=== PATIENT | female | born 1940 | race Caucasian/White ===

== ENCOUNTER 2021-01-14 09:05 | Outpatient (CLI) | payer MEDICARE, OTHER | END 2021-01-14 09:06 | disposition critical access hospital (66) | LOC: EMS 09:05 | DX: R55 Syncope and collapse (principal); S21.001A Unspecified open wound of right breast, initial encounter; X58.XXXA Exposure to other specified factors, initial encounter | CPT/HCPCS: A0425; A0427 ==

== ENCOUNTER 2021-01-14 09:24 | Emergency (ER) | payer MEDICARE, OTHER ==
--- NOTE | 2021-01-14 09:39 | ED Physician Documentation ---
PD HPI SKIN - Stated complaint Stated Complaint: R BREAST WOUND - History obtained from History obtained from: Patient - History of Present Illness Timing - onset: How many months ago (onset in May of small pimple like breast lesion that has continually grown and ulcerated for 8 months. It has bled at times mildly. Today it had dripping blood from one erosive indentation of the mass. This got her to call EMS and come for eval. Otherwise had not sought care/eval for this as yet) Timing - duration: Months (8) Timing - details: Gradual onset Location: Chest (right breast area.) Quality / character: Other (swelling and mass.) Associated symptoms: No: Fever, Dyspnea, Abd pain, N/V/D Review of Systems Constitutional: denies: Fever, Chills Nose: denies: Rhinorrhea / runny nose, Congestion Throat: denies: Sore throat Cardiac: denies: Palpitations, Pedal edema, Calf pain Respiratory: denies: Dyspnea, Cough, Wheezing GI: denies: Abdominal Pain, Nausea, Vomiting, Diarrhea Skin: reports: Lesions (just right breast and axilla.) Neurologic: denies: Focal weakness, Numbness, Altered mental status, Headache PD PAST MEDICAL HISTORY - Past Medical History Cardiovascular: None Respiratory: None Endocrine/Autoimmune: None GI: None : None Musculoskeletal: None Derm: None - Present Medications Home Medications: Ambulatory Orders Medication Instructions Recorded Confirmed Mupirocin Calcium [Mupirocin] 1 applic TP TID #15 gm 01/14/21 cephALEXin [Keflex] 500 mg PO TID #20 cap 01/14/21 - Allergies Allergies/Adverse Reactions: Allergies Allergy/AdvReac Type Severity Reaction Status Date / Time No Known Drug Allergies Allergy Verified 01/14/21 09:42 PD ED PE NORMAL - Vitals Vital signs reviewed: Yes - General General: Alert and oriented X 3, Well developed/nourished, Other (There is some redness with superficial exudate on the medial and inferior portion of the br east/chest wall mass concerning for infection.) - Neck Neck: Supple, no meningeal sign, No adenopathy - Cardiac Cardiac: RRR, No murmur - Respiratory Respiratory: Clear bilaterally - Abdomen Abdomen: Soft, Non tender - Derm Derm: Normal color, Warm and dry, Other (The right breast area shows no identifiable breast morphology. Its replaced by a lobular mass of indistinct tissue with open sores and some mild oozing bleeding in the inferior aspect. The mass is adherent to the chest wall and is not movable. It extends to the axilla with secondary masses/nodes.) - Extremities Extremities: Other (Normal pulses capillary refill and sensation in the right arm. No edema. There is adenopathy or masses in the axilla but no apparent compression on vessels.) - Neuro Neuro: No motor deficit, No sensory deficit Results - Vitals Vitals: Vital Signs - 24 hr 01/14/21 01/14/21 01/14/21 09:33 10:21 12:28 Temperature 36.9 C Heart Rate 92 85 102 H Respiratory 16 14 16 Rate Blood Pressure 180/76 H 160/76 H 161/77 H O2 Saturation 97 96 97 Oxygen O2 Source Room air - Labs Labs: Laboratory Tests 01/14/21 01/14/21 01/14/21 09:58 09:58 09:58 WBC 12.5 H RBC 4.12 L Hgb 11.9 L Hct 36.7 L MCV 89.1 MCH 28.9 MCHC 32.4 RDW 14.8 Plt Count 406 MPV 10.4 Neut # (Auto) 10.5 H Lymph # (Auto) 0.[address] [place] # (Auto) 0.8 Eos # (Auto) 0.1 Baso # (Auto) 0.1 Absolute Nucleated RBC 0.00 Nucleated RBC % 0.0 Sodium 138 Potassium 4.5 Chloride 103 Carbon Dioxide 28 Anion Gap 7.0 BUN 28 H Creatinine 0.6 Estimated GFR (MDRD) 96 Glucose 148 H Calcium 9.5 Total Bilirubin 0.9 AST 30 ALT 18 Alkaline Phosphatase 35 L Total Creatine Kinase 77 Total Protein 7.5 Albumin 3.8 Globulin 3.7 Albumin/Globulin Ratio 1.0 Lipase 32 CA 125 Antigen 98.2 H - Rads (name of study) chest/abd/pelvis CT Radiology: Prelim report reviewed (Large lobulated tumor on the right chest wall into the axilla concerning for malignancy. It extends and erodes into the chest wall with some involvement in loss of rib architecture. No effusion nor pneumothorax. No lung or liver or bone metastases seen.), See rad report PD MEDICAL DECISION MAKING - ED course Complexity details: reviewed results, considered differential, d/w patient, d/w organizational research consultant (Dr. Banerjee, who came to ER to see and consult on patient. ) Departure - Departure Disposition: 01 Home, Self Care Clinical Impression: Breast mass in female Condition: Stable Record reviewed to determine appropriate education?: Yes Follow-Up: Miranda Banerjee MD [Provider Admit Priv/Credential] - Prescriptions: cephALEXin [Keflex] 500 mg PO TID #20 cap Mupirocin Calcium [Mupirocin] 1 applic TP TID #15 gm Comments: Cleanse the open wounds with soap and water gently once or twice daily. You can apply mupirocin antibiotic ointment to the main red irritated areas. Cover it with dressing. There does appear possibly to be some local infection in the skin as well so would take cephalexin antibiotic as directed. Tylenol if needed for pains. Follow-up with Dr. Ruano in the office tomorrow as planned with her. Return to the ER if problems or significant bleeding again or such. Discharge Date/Time: 01/14/21 13:35
[2021-01-14] MEDS ORDERED: FERRIC SUBSULFATE 8 ML SOLUTION (FOR OR) TOP STA (09:51)
[2021-01-14] MEDS ORDERED: LIDOCAINE JELLY 2% 6 ML JEL.PF.APP TOP STA (09:51)
[2021-01-14 10:04] LABS: BASOPHILS # (AUTO) 0.1 10^3/uL (0.0-0.1); BASOPHILS % (AUTO) 0.6 %; EOSINOPHILS # (AUTO) 0.1 10^3/uL (0.0-0.7); EOSINOPHILS % (AUTO) 0.6 %; HCT - HEMATOCRIT 36.7 % (37.0-47.0); HGB - HEMOGLOBIN 11.9 g/dL (12.0-16.0); LYMPHOCYTES # (AUTO) 0.9 10^3/uL (1.5-3.5); LYMPHOCYTES % (AUTO) 7.5 %; MEAN CORPUSCULAR HEMOGLOBIN 28.9 pg (27.0-31.0); MEAN CORPUSCULAR HGB CONC 32.4 g/dL (32.0-36.0); MEAN CORPUSCULAR VOLUME 89.1 fL (81.0-99.0); MEAN PLATELET VOLUME 10.4 fL (7.9-10.8); MONOCYTES # (AUTO) 0.8 10^3/uL (0.0-1.0); MONOCYTES % (AUTO) 6.7 %; NEUTROPHILS # (AUTO) 10.5 10^3/uL (1.5-6.6); NEUTROPHILS % (AUTO) 84.1 %; PLT - PLATELET COUNT 406 10^3/uL (130-450); RED BLOOD COUNT 4.12 10^6/uL (4.20-5.40); RED CELL DISTRIBUTION WIDTH 14.8 % (12.0-15.0); WHITE BLOOD COUNT 12.5 x10^3/uL (4.8-10.8)
[2021-01-14 10:18] LABS: ALBUMIN 3.8 g/dL (3.2-5.5); BILIRUBIN,TOTAL 0.9 mg/dL (0.2-1.0); CALCIUM 9.5 mg/dL (8.5-10.3); CREATININE 0.6 mg/dL (0.4-1.0); POTASSIUM 4.5 mmol/L (3.5-5.0); TOTAL PROTEIN 7.5 g/dL (6.7-8.2)
[2021-01-14] MEDS ORDERED: IOPAMIDOL-300 50 ML VIAL ONE (10:41)
[2021-01-14] MEDS ORDERED: IOPAMIDOL-300 50 ML VIAL IVP ONE (11:05)
--- NOTE | 2021-01-14 11:46 | CT Report ---
PROCEDURE: Abdomen/Pelvis W INDICATIONS: right breast mass 8 months CONTRAST: IV CONTRAST: Isovue 300 ml: 100 PO CONTRAST: *NO PO CONTRAST TECHNIQUE: After the administration of intravenous contrast, 5 mm thick sections acquired from the diaphragms to the symphysis. 5 mm thick coronal and sagittal reformats were acquired. For radiation dose reducti on, the following was used: automated exposure control, adjustment of mA and/or kV according to everardo ent size. COMPARISON: None. FINDINGS: Image quality: Excellent. ABDOMEN: Lung bases: There is a partially visualized highly suspicious for lung gating right breast mass with probable invasion in the chest wall and local extension across midline. A potential additional malign ant lesion is in the left breast on series 3 image 1 measuring 1 cm. Please see separately dictated C T chest report for further details. Solid organs: There is no liver mass identified to indicate metastatic disease. The gallbladder is un remarkable. The spleen is normal in size and appearance. Moderately atrophic pancreas with no peripan creatic inflammatory changes, ductal dilatation, or obvious mass. No adrenal gland nodule or mass. Luis th kidneys are normal in appearance. Peritoneum and bowel: No abnormally dilated or thickened loop of bowel. No pericolonic or mesenteric inflammatory changes. Nodes and vessels: No threshold enlarged retroperitoneal lymph node or intra-abdominal lymph node. At herosclerotic abdominal aorta without aneurysm. Miscellaneous: No ventral hernias. PELVIS: Genitourinary: Bladder wall thickness is normal. Uterus and ovaries are within normal limits. Miscellaneous: No structural enlarged pelvic or inguinal lymph nodes. Bones: Suspicious lytic or blastic osseous lesion identified. IMPRESSION: Almost certainly malignant right breast mass with suspected chest wall invasion, extension across mid line, and locoregional lymphadenopathy, partially visualized. Suspected additional left breast mass. For more detailed description, please refer to a separately dictated CT of the chest. No findings of metastatic disease in the abdomen or pelvis. Reviewed by: Gordy Chau MD on 01/14/2021 11:45 AM PDT Approved by: Gordy Chau MD on 01/14/2021 11:45 AM PDT Station ID: [id number]
[2021-01-14] MEDS ORDERED: ceFAZolin 1 GM VIAL IVP STA (11:48)
--- NOTE | 2021-01-14 12:05 | CT Report ---
PROCEDURE: CHEST W INDICATIONS: right breast mass 8 months CONTRAST: IV CONTRAST: Isovue 300 ml: 100 PO CONTRAST: *NO PO CONTRAST TECHNIQUE: After the administration of intravenous contrast, images were acquired from the pulmonary apices to t he posterior costophrenic angles. Multiplanar MIP reformats were acquired. For radiation dose reduc tion, the following was used: automated exposure control, adjustment of mA and/or kV according to pa tient size. COMPARISON: None. FINDINGS: Image quality: Excellent. Lungs and pleura: No acute air space opacities. No pleural effusions or pneumothorax. Central and peripheral airways are patent and normal in caliber. Mediastinum: Heart size is normal. No pericardial effusion. There are enlarged mediastinal lymph n odes the largest in the precarinal region measuring 1.4 cm on series 2 image 25. Thoracic aorta and central pulmonary arteries are normal in size. The main pulmonary arteries demonstrate enhancement. There is heterogeneous enhancement of the proximal segmental branches of the pulmonary arteries parti cularly within the lower lobes. It is noted that this is protocoled for standard CT chest and not a p ulmonary angiogram. Esophagus is normal in caliber. No hiatal hernia. Bones and chest wall: There is a large confluent infiltrative mass within the right breast extending to the posterior aspect of the anterior chest wall. Destructive lytic anterior right third and fourt h rib changes are present posterior to the mass. In addition, there are are areas of focal and conflu ent mass lesions within the supraclavicular region as well as right axillary region. The largest dime nsions of the mass measure approximately 12.0 x 7.3 x 11.8 cm. Largest axillary mass measures approxi mately 3.0 x 4.7 x 6.0 seen on series 2 image 22. In addition, there is left supraclavicular and axil missy adenopathy, with the largest mass on the left measuring 2.3 x 2.7 x 4.2 cm. There are areas of s oft tissue mass identified within the left breast the largest medially on series 2 image 38 measuring 1.6 x 1.3 cm. Thyroid demonstrates low-attenuation focus within the right lobe measuring 2.1 cm.. Abdomen: Visualized upper abdominal solid organs appear normal. Upper abdominal bowel loops are nor mal in caliber. IMPRESSION: 1. Large right breast mass extending to the chest wall, supraclavicular region as well as right axill daniel region most consistent with malignancy. In addition, metastatic mass lesions are also identified in the left breast and left axillary as well as supraclavicular regions. Osseous destruction is prese nt within the right ribs secondary to mass lesion as above. 2. Heterogeneous enhancement of the proximal segmental branches of the pulmonary arteries within the lower lobes as above. While this could be secondary to heterogeneous enhancement, it appears slightly more pronounced. Given extensive appearance of malignancy, pulmonary embolism cannot be excluded on the basis of this exam. Repeat study with CT pulmonary angiogram protocol is recommended when feasibl e with clinical correlation. 3. Nonspecific low-attenuation mass within the right thyroid lobe possibly related to adenoma. No pr iors are available for comparison. Recommend interval follow-up thyroid ultrasound as indicated. Reviewed by: Елена Sorto MD on 01/14/2021 12:04 PM PDT Approved by: Елена Sorto MD on 01/14/2021 12:04 PM PDT Station ID: [id number]
[2021-01-14] MEDS ORDERED: LIDOCAINE 1%-EPI 1:100000 20 ML MDV SUBQ STA (12:27)
[2021-01-14 12:29] VITALS: BP 161/77
[2021-01-14] MEDS ORDERED: SILVER SULFADIAZINE CREAM 25 GM TUBE TOP ONE (12:54)
--- NOTE | 2021-01-14 13:10 | CONSULTATION NOTE ---
Referring Provider Name of Referring Provider:: Nitin Consult Date: 01/14/21 Chief Complaint - Chief Complaint Chief Complaint: Bleeding from right breast History of Present Illness - Admitted From Admitted From:: ED - History of Present Illness HPI Comment/Other: Is a pleasant 80-year-old lady who presented to the emergency room via EMS this morning. She reports that she was in the shower and noticed that she was bleeding from her right breast. She said it has bled a little bit before but never this bad and became very concerning for her. She said she was frightened when she could not make it stop immediately so she called EMS and was therefore transported. She says that since May she has noted some draining from her right breast and so she has been wearing a covering when she sleeps so that it does not soil her night dress. She says that she is never had a mammogram. She has no family history of breast cancer. She does not like to go to the doctor and does not take medication. She has no primary care provider. He has not been to see a physician in many years she lives locally with her who she reports is in good health.She denies any pain. She said she has never had pain from this lesion. I question her regarding breast self-exam and when she may have noticed a lump on that side and she said she never noticed a lump until it began to drain.She denies any new health problems.She reports she lives a healthy lifestyle. History - Past Medical History Cardiovascular: reports: None Respiratory: reports: None Endocrine/Autoimmune: reports: None GI: reports: None MANAGER DRILLING: reports: None : reports: None Psych: reports: None Musculoskeletal: reports: None Derm: reports: None MRSA Hx?: No - POLST Patient has POLST: No Meds/Allgy - Home Medications Home Medications: Ambulatory Orders Medication Instructions Recorded Confirmed Mupirocin Calcium [Mupirocin] 1 applic TP TID #15 gm 01/14/21 cephALEXin [Keflex] 500 mg PO TID #20 cap 01/14/21 - Allergies Allergies/Adverse Reactions: Allergies Allergy/AdvReac Type Severity Reaction Status Date / Time No Known Drug Allergies Allergy Verified 01/14/21 09:42 Review of Systems - Integumentary Integumentary: reports: Other (Bleeding from right breast wound. She denies all other symptoms. She denies any swelling in her arm or hand) Exam - Vital Signs Vital Signs: Vital Signs x48h Temp Pulse Resp BP Pulse Ox 01/14/21 12:28 102 H 16 161/77 H 97 01/14/21 10:21 85 14 160/76 H 96 01/14/21 09:33 36.9 C 92 16 180/76 H 97 - Physical Exam General Appearance: positive: No acute distress, Alert Eyes Bilateral: positive: Normal inspection, PERRL, EOMI ENT: positive: ENT inspection nml Neck: positive: Nml inspection, Trachea midline Respiratory: positive: No respiratory distress, Breath sounds nml Cardiovascular: positive: Regular rate & rhythm Peripheral Pulses: positive: 0 Abdomen: positive: Non-tender Skin: positive: Other (There is a 15 x 19 cm open fungating wound involving the right chest. There was a frankly necrotic region inferiorly where the tissue h as fallen away. This is the area that was bleeding earlier and now has adherent clot. Gross evidence of tumor extends into the right axilla with woody consistency) Extremities: positive: Non-tender Neurologic/Psychiatric: positive: Oriented x3 Conclusion and Plan - Lab Results Laboratory Results 01/14/21 09:58: CA 125 Antigen 98.2 H 01/14/21 09:58: Sodium 138, Potassium 4.5, Chloride 103, Carbon Dioxide 28, Anion Gap 7.0, BUN 28 H, Creatinine 0.6, Estimated GFR (MDRD) 96, Glucose 148 H, Calcium 9.5, Total Bilirubin 0.9, AST 30, ALT 18, Alkaline Phosphatase 35 L, Total Creatine Kinase 77, Total Protein 7.5, Albumin 3.8, Globulin 3.7, Al bumin/Globulin Ratio 1.0, Lipase 32 01/14/21 09:58: WBC 12.5 H, RBC 4.12 L, Hgb 11.9 L, Hct 36.7 L, MCV 89.1, MCH 28.9, MCHC 32.4, RDW 14.8, Plt Count 406, MPV 10.4, Neut # (Auto) 10.5 H, Lymph # (Auto) 0.9 L, [place] # (Auto) 0.8, Eos # (Auto) 0.1, Baso # (Auto) 0.1, Absolute Nucleated RBC 0.00, Nucleated RBC % 0.0 - Diagnostic Imaging Results Diagnostic Imaging Results Comments: IMPRESSION: Almost certainly malignant right breast mass with suspected chest wall invasion, extension across midline, and locoregional lymphadenopathy, partially visualized. Suspected additional left breast mass. For more detailed description, please refer to a separately dictated CT of the chest. No findings of metastatic disease in the abdomen or pelvis. 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 The right breast was prepped and draped in the standard surgical fashion. The area over the right breast mass was anesthetized with 1% lidocaine with epinephrine. A 5 mm rolanda was created in the skin over the mass. An achieve core needle was used to obtain 4 large core biopsies of the central portion of the mass. The biopsies were placed in formalin and submitted to pathology. The wound was checked for hemostasis. A dry dressing and compressive bra were applied. All sponge, needle, and instrument counts were correct at the conclusion of the procedure. The patient tolerated procedure well. - Plan Plan: Discharge to home. Follow-up with me in my office tomorrow for wound care and other arrangements.
== END 2021-01-14 13:35 | disposition home or self-care (01) ==
LOC: EDUNIT# → EDBD → ED 09:24
DX: C50.911 Malignant neoplasm of unspecified site of right female breast (principal)
CPT/HCPCS: 36415; 71260; 74177; 80053; 82550; 83690; 85025; 86304; 96374; 99284; A9270; Q9967

== ENCOUNTER 2021-02-02 08:55 | Outpatient (CLI) | payer MEDICARE, OTHER ==
--- NOTE | 2021-02-03 13:00 | Mammography Report ---
UNILATERAL LEFT DIGITAL DIAGNOSTIC MAMMOGRAM 3D/2D: 02/02/2021 CLINICAL: Patient returns for additional imaging over a suspected mass in the left breast. Baseline e xam. No prior exams were available for comparison. The tissue of left breast is predominantly fatty. There is a mass in the left breast posterior depth medial region seen on the craniocaudal view only. On recent CT in the 6:00 position there was a 1.5 x 1.0 cm mass and in the 9:00 position a 1.4 cm ma ss. Additionally this CT demonstrated large axillary lymph nodes. IMPRESSION: INCOMPLETE: NEEDS ADDITIONAL IMAGING EVALUATION Ultrasound will be performed today to evaluate the masses seen on this mammogram as well as the misti s and axillary adenopathy seen on recent CT. Please see separately dictated ultrasound to follow. This exam was interpreted at Station ID: [id number]. NOTE: For mammograms, a report in lay terms will be sent to the patient. Approximately 15% of breast malignancies will not be visualized mammographically. In the management of a palpable breast mass, a negative mammogram must not discourage biopsy of a clinically suspicious lesion. Electronically Signed By: Dusty Varela acr/:02/02/2021 11:10:45 ACR BI-RADS Category 0: Incomplete 3340F PARENCHYMAL PATTERN: (F) - The breast(s) demonstrate(s) diffuse fatty replacement. BI-RADS CATEGORY: (0) - 0 Biopsy follow-up [id number] Immediate follow-up LATERALITY: (B)
--- NOTE | 2021-02-03 13:01 | Ultrasound Report ---
LIMITED ULTRASOUND OF LEFT BREAST AND AXILLA: 02/02/2021 CLINICAL: Patient returns today to evaluate a focal asymmetries in the left breast and lt axilla. Comparison is made to exam dated: 02/02/2021 mammogram - [facility]. Color flow and real-time ultrasound of the left breast axilla were performed. Harris scale images of t he real-time examination were reviewed. Multiple left breast masses are seen: 1. 6:00 2 cm from the nipple measuring 12 x 11 x 20 mm. 2. 5-6:00 2cm from the nipple measuring 7 x 5 x 6 mm. 3. 9:00 7 cm from the nipple measuring 15 x 12 x 13 mm. 4. 7:00 5 to 6 cm from the nipple measuring 12 x 7 x 15 mm. 5. 7:00 5 to 6 cm from the nipple measuring 11 x 7 x 9 mm. 6. 1:00 3 cm from the nipple measuring 8 x 3 x 4 mm. 7. 2:00 8 cm from the nipple measuring 18 x 11 x 13 mm. Multiple left axillary lymph nodes are seen, the largest measuring 4.8 x 1.7 x 3.4 cm and 2.5 x 1.5 x 2.5 cm. IMPRESSION: HIGHLY SUGGESTIVE OF MALIGNANCY There are multiple masses on the left breast which are highly suspicious for malignancy. Biopsy of th e largest could be performed under ultrasound guidance, as well as left axillary node biopsy. This exam was interpreted at Station ID: [id number]. Electronically Signed By: Dusty Varela acr/:02/02/2021 14:48:23 Ultrasound BI-RADS: 5 Highly suggestive of malignancy BI-RADS CATEGORY: (5) - 5 Biopsy follow-up [id number] Immediate follow-up LATERALITY: (B)
== END 2021-02-02 08:56 | disposition home or self-care (01) ==
LOC: DI 08:55
PROVIDERS: ATTEND Internal Medicine Hematology & Oncology
DX: R59.0 Localized enlarged lymph nodes (principal); N63.25 Unspecified lump in the left breast, overlapping quadrants; N63.24 Unspecified lump in the left breast, lower inner quadrant; N63.21 Unspecified lump in the left breast, upper outer quadrant

== ENCOUNTER 2021-02-04 08:34 | Outpatient (CLI) | payer MEDICARE, OTHER ==
--- NOTE | 2021-02-04 18:56 | Nuclear Medicine Report ---
PROCEDURE: Bone Whole Body INDICATIONS: RIGHT BREAST CA RADIOPHARMACEUTICAL: 27.3 mCi Tc-99m MDP IV. TECHNIQUE: Delayed whole-body scintigrams were obtained approximately 3-4 hours after intravenous injection of r adiotracer. Anterior and posterior views were acquired from vertex to feet. Additional left and rig ht oblique views of the skull and cervical spine were obtained. COMPARISON: None available. FINDINGS: There is moderate knee levocoliosis. Low level increased uptake in thoracic and lumbar spi ne is most likely degenerative in nature. No lesions are identified in skull, sternum, scapulae, clav icles, ribs, bony pelvis, and visualized shafts of the long bones. Foci of increased activity in shou lders bilaterally, hips bilaterally, knees bilaterally are compatible with degenerative/arthritic marques nges. IMPRESSION: 1. No scintigraphic findings to suggest osseous metastatic disease. 2. Scoliosis and degenerative changes in thoracic and lumbar spine. 3. Degenerative and arthritic changes as described. Reviewed by: Leadner Chung MD on 02/04/2021 6:54 PM PDT Approved by: Leander Chung MD on 02/04/2021 6:54 PM PDT Station ID: [id number]
== END 2021-02-04 08:35 | disposition home or self-care (01) ==
LOC: DI 08:34
PROVIDERS: ATTEND Internal Medicine Hematology & Oncology
DX: C50.911 Malignant neoplasm of unspecified site of right female breast (principal); M47.816 Spondylosis without myelopathy or radiculopathy, lumbar region; M47.814 Spondylosis without myelopathy or radiculopathy, thoracic region
CPT/HCPCS: 78306; 93306

== ENCOUNTER 2021-02-09 09:23 | Day surgery (SDC) | payer MEDICARE, OTHER ==
[2021-02-09] MEDS ORDERED: LACTATED RINGERS 1,000 ML IV ONE ×2 (09:54→12:15)
[2021-02-09] MEDS ORDERED: METOCLOPRAMIDE 10 MG/2 ML VIAL IVP PRN (10:48)
[2021-02-09] MEDS ORDERED: ATROPINE ABBOJECT 1 MG/10 ML SYRINGE IVP PRN (10:48)
[2021-02-09] MEDS ORDERED: ONDANSETRON 4 MG/2 ML VIAL IVP PRN ×2 (10:48→12:18)
[2021-02-09] MEDS ORDERED: HYDROmorphone 0.5 MG/0.5 ML SYRINGE IVP PRN ×2 (10:48→12:18)
[2021-02-09] MEDS ORDERED: MORPHINE 2 MG/ML CARPUJECT IVP PRN (10:48)
[2021-02-09] MEDS ORDERED: NALOXONE 0.4 MG/ML VIAL IVP PRN (10:48)
[2021-02-09] MEDS ORDERED: ePHEDrine 50 MG/ML VIAL IVP PRN (10:48)
[2021-02-09] MEDS ORDERED: fentaNYL 100 MCG/2 ML VIAL IVP PRN (10:48)
--- NOTE | 2021-02-09 10:48 | ANESTHESIA ---
Pre-Anesthesia VS, & Labs - Diagnosis R breast CA - Procedure Port-a-cath placement Vital Signs: Temp Pulse Resp BP Pulse Ox 36.8 C 92 16 185/77 H 98 02/09/21 10:09 02/09/21 10:02/09/21 10:09 02/09/21 10:09 02/09/21 10:09 Height: 5 ft 5 in Weight (kg): 60 kg Body Mass Index: 22.0 BMI Classification: Healthy weight - NPO >8 hours - Is Patient ?: No - Lab Results Lab results reviewed: Yes Home Medications and Allergies Silver Sulfadiazine Cream [Silvadene Cream] 1 applic TP UD 01/23/21 Allergies/Adverse Reactions: Allergies Allergy/AdvReac Type Severity Reaction Status Date / Time No Known Drug Allergies Allergy Verified 02/06/21 13:31 Anes History & Medical History - Anesthetic History Anesthesia Complications: reports: No previous complications Family history of Anesthesia Complications: Denies Family history of Malignant Hyperthermia: Denies - Medical History Cardiovascular: reports: None Pulmonary: reports: None Gastrointestinal: reports: None Urinary: reports: None Musculoskeletal: reports: None Endocrine/Autoimmune: reports: None Blood Disorders: reports: None Skin: reports: None Smoking Status: Never smoker Psychosocial: reports: No issues indicated History of Cancer?: Yes (R breast) - Surgical History Eyes Ears Nose Throat (EENT): reports: Cataracts Exam General: Alert, Oriented x3, Cooperative Dental: WNL Mouth Openin Fingerbreadth Neck Mobility: Normal Mallampati classification: II Thyromental Distance: 4-6 cm Respiratory: Lungs clear, Normal breath sounds, No respiratory distress Cardiovascular: Regular rate Neurological: Normal speech Mental/Cognitive Status: Alert/Oriented X3, Normal for patient Cognitive Status: Within normal limits Plan Anesthesia Type: General Consent for Procedure(s) Verified and Reviewed: Yes Code Status: Attempt Resuscitation ASA classification: 3-Severe systemic disease Is this case an emergency?: No
[2021-02-09] MEDS ORDERED: LACTATED RINGERS 1,000 ML IV SCH (11:00)
[2021-02-09] MEDS ORDERED: LIDOCAINE 2%-EPI 1:100000 20 ML MDV ONE (11:21)
[2021-02-09] MEDS ORDERED: PROPOFOL 500 MG/50 ML 500 MG/50 ML VIAL ONE (11:21)
[2021-02-09] MEDS ORDERED: BUPIVACAINE 0.25% PF 30 ML VIAL ONE (11:22)
[2021-02-09] MEDS ORDERED: SODIUM CHLORIDE 0.9% 10 ML VIAL IVP ONE (11:22)
[2021-02-09] MEDS ORDERED: ceFAZolin 1 GM VIAL ONE (11:31)
[2021-02-09] MEDS ORDERED: MIDAZOLAM 2 MG/2 ML VIAL ONE (11:37)
[2021-02-09] MEDS ORDERED: BUPIVACAINE 0.5% PF 30 ML VIAL INFIL ONE ×2 (11:47)
[2021-02-09] MEDS ORDERED: LIDOCAINE 2%-EPI 1:100000 20 ML MDV SUBQ ONE ×2 (11:47)
--- NOTE | 2021-02-09 12:14 | OPERATIVE REPORT ---
Operative Report - General Procedure Date: 02/09/21 Planned Procedure: Left subclavian port placement Left axillary node biopsy Pre-Op Diagnosis: Right breast cancer, locally advance; left axilary adenopathy Procedure Performed: Left subclavian power port placement Left axillary node biopsy Post Op Diagnosis: Same - Procedure Note Primary Surgeon: Chriss Anesthesia Provider: EMERSON Gonzalez Anesthesia Technique: Local, MAC Pathology: Portions of left axillary node to pathology in formalin Estimated Blood Loss (mL): 5 Indications: Locally advanced right breast cancer Multiple left breast masses and left axillary adenopathy. Findings: Port in good position in the superior vena cava without evidence of pneumothorax Complications: Apparent - Other Other Information/Narrative: After obtaining informed consent, the patient is brought to the operating room and placed in supine position on the operating table. Following successful induction of sedation with monitored anesthesia care and appropriate padding of all bony prominences, the left chest and neck were prepped and draped in the standard surgical fashion. A timeout was held per scope protocol. All elements of the surgical safety checklist were followed before, during, and after the procedure. Following infiltration with local anesthetic to create a field block, the left subclavian vein was accessed in the deltopectoral groove. The J-wire was gently placed into the vein. Fluoroscopy was used to confirm the position of the wire and in the subclavian vein. We anesthetized the existing healed scar in the area around it for placement of the port itself. An incision was created here and carried down through the skin and subcutaneous tissue. A pocket was created with blunt dissection. The port tubing was attached to the tunneling device and passed from the access site of the vein into the pocket. It was trimmed to an appropriate length and the port attached. The port was sewn into place in the pocket. The dilator and introducer were then passed over the J-wire that was in the subclavian vein. The J-wire and dilator were removed leaving only the introducer. The tubing was then passed through the introducer and the introducer cracked and removed per drapery sewer hand's directions. The port was then checked for function and flushed and debra easily. Additional local anesthetic was applied to the chest wall. The port pocket was closed with interrupted Vicryl sutures and Monocryl stitches were placed in both skin incision sites. We now turned our attention to the left axilla. The axilla was prepped and draped in the standard surgical fashion. The palpable node was stabilized between the surgeon's fingers. Local anesthetic was infiltrated in the skin over the palpable node. A 5 mm rolanda was created in the tissue over the node. A Rahul gun was used to obtain 3 Malick-Cut needle biopsies of the palpable node. The specimens were placed in formalin. The wound was checked for hemostasis and then closed with Dermabond. All sponge, needle, and instrument counts were correct at the conclusion of the case. Chest x-ray in the postanesthesia care unit revealed the port in good position in the superior vena cava without evidence of pneumothorax.
--- NOTE | 2021-02-09 12:54 | XRAY Report ---
PROCEDURE: Post Port Placement 1V CXR INDICATIONS: Left subclavian port TECHNIQUE: One view of the chest was acquired. COMPARISON: CT of chest dated 01/14/2021. FINDINGS: Surgical changes and devices: Left chest wall Port-A-Cath tip is in the region of SVC.. Lungs and pleura: No pleural effusions or pneumothorax. Chronic emphysematous changes are seen. No f ocal infiltrate. Mediastinum: Mediastinal contours appear normal. Heart size is enlarged. Bones and chest wall: No suspicious bony lesions. Overlying soft tissues appear unremarkable. IMPRESSION: Left chest wall Port-A-Cath tip is in SVC. COPD. No focal infiltrate or pneumothorax. Reviewed by: Serafin Ahuja MD on 02/09/2021 12:52 PM PDT Approved by: Serafin Ahuja MD on 02/09/2021 12:52 PM PDT Station ID: [id number]
--- NOTE | 2021-02-09 13:05 | XRAY Report ---
PROCEDURE: OR C-Arm Procedure INDICATIONS: PORT PLACEMENT TECHNIQUE: Intraoperative fluoroscopic image of chest was obtained. COMPARISON: None. FINDINGS: Intraoperative fluoroscopic image of chest shows left-sided central venous catheter tip projected in the region of SVC. IMPRESSION: Fluoroscopy guidance was provided intraoperatively for left chest wall Port-A-Cath placement. Reviewed by: Serafin Ahuja MD on 02/09/2021 1:04 PM PDT Approved by: Serafin Ahuja MD on 02/09/2021 1:04 PM PDT Station ID: [id number]
[2021-02-09 13:18] VITALS: BP 145/68
--- NOTE | 2021-02-09 15:20 | ANESTHESIA POST OP EVALUATION ---
Anesthesia Post Eval - Post Anesthesia Eval Vitals: Last Vital Signs Temp 36.8 C 02/09/21 13:15 Pulse 79 02/09/21 13:15 Resp 18 02/09/21 13:15 BP 145/68 H 02/09/21 13:15 Pulse Ox 99 02/09/21 13:15 CV Function Including HR & BP: Stable Pain Control: Satisfactory Nausea & Vomiting: Negative Mental Status: Baseline Respiratory Status: Airway Patent Hydration Status: Satisfactory Anesthesia Complications: None
== END 2021-02-09 09:24 | disposition home or self-care (01) ==
LOC: SDS 09:23
PROVIDERS: ATTEND Surgery
DX: C50.911 Malignant neoplasm of unspecified site of right female breast (principal); Z20.822 Contact with and (suspected) exposure to COVID-19
CPT/HCPCS: 36561; 71045; 87635; C1788; J7120

== ENCOUNTER 2021-02-25 18:48 | Emergency (ER) | payer MEDICARE, OTHER ==
[2021-02-25 18:58] VITALS: BP 147/92
[2021-02-25] MEDS ORDERED: TRANEXAMIC ACID 1,000 MG/10 ML VIAL NAS STA (19:11)
--- NOTE | 2021-02-25 19:15 | ED Physician Documentation ---
History of Present Illness - Stated complaint Stated Complaint: WOUND - Chief complaint Chief Complaint: Wound - History obtained from History obtained from: Patient - History of Present Illness Timing: Today Pain level max: 0 Pain level now: 0 - Additonal information Additional information: Patient is a 80-year-old female with right breast cancer. She has been referred to wound care for the large open wound on the chest wall. She states that she change the bandages daily, today she woke up from a nap and there was increased bleeding. Came in for evaluation. Nothing makes it better or worse. She is not lightheaded, dizzy. No shortness of breath. No chest pain. No fevers. Review of Systems Constitutional: denies: Fever, Chills GI: denies: Vomiting, Diarrhea Skin: denies: Rash Musculoskeletal: denies: Neck pain, Back pain Neurologic: denies: Headache PD PAST MEDICAL HISTORY - Past Medical History Cardiovascular: None Respiratory: None Endocrine/Autoimmune: None GI: None IDEA MAN: None : None HEENT: None Psych: None Musculoskeletal: None Derm: None - Past Surgical History Past Surgical History: No HEENT: Cataracts - Present Medications Home Medications: Ambulatory Orders Medication Instructions Recorded Confirmed Lidocaine/Prilocain 2.5% Cream 5 applic TOP BID PRN #1 tu 02/09/21 02/19/21 [Emla 2.5% Cream] oxyCODONE [Roxicodone] 2.5 mg PO Q4-6H PRN #14 tablet 02/09/21 02/19/21 Ondansetron Odt [Zofran Odt] 4 mg TL Q6H PRN #30 tab 02/16/21 02/19/21 Silver Sulfadiazine Cream 0 applic TOP QD #25 gm 02/16/21 02/19/21 [Silvadene Cream] dexAMETHasone [Decadron] 8 mg PO UD #36 tablet 02/17/21 02/19/21 - Allergies Allergies/Adverse Reactions: Allergies Allergy/AdvReac Type Severity Reaction Status Date / Time No Known Drug Allergies Allergy Verified 02/25/21 18:59 - Social History Does the pt smoke?: No Smoking Status: Never smoker Does the pt drink ETOH?: No Does the pt have substance abuse?: No - POLST Patient has POLST: No PD ED PE NORMAL - Vitals Vital signs reviewed: Yes - General General: Alert and oriented X 3, No acute distress - HEENT HEENT: Moist mucous membranes - Neck Neck: Supple, no meningeal sign - Cardiac Cardiac: RRR, Other (Large open wound with a fungating breast mass on the right chest wall. Minimal active bleeding.) - Respiratory Respiratory: No respiratory distress, Clear bilaterally - Derm Derm: Warm and dry - Neuro Neuro: Alert and oriented X 3 - Psych Psych: Normal mood, Normal affect Results - Vitals Vitals: Vital Signs - 24 hr 02/25/21 18:50 Temperature 36.9 C Heart Rate 105 H Respiratory 16 Rate Blood Pressure 147/92 H O2 Saturation 97 Oxygen O2 Source Room air PD MEDICAL DECISION MAKING - ED course Complexity details: reviewed results, re-evaluated patient, considered differential, d/w patient ED course: TXA soaked gauze was applied to the wound and left for about 20 minutes. All bleeding resolved. The wound bed is dry. Telfa dressings were applied and a large Jeffery bandage was used to secure the dressings. Patient will continue her current wound care at home while she is awaiting referral to wound care from her oncologist. Patient will return if she worsens. Patient counseled regarding signs and symptoms for which I believe and urgent re-evaluation would be necessary. Patient with good understanding of and agreement to plan and is comfortable going home at this time This document was made in part using voice recognition software. While efforts are made to proofread this document, sound alike and grammatical errors may occur. Departure - Departure Disposition: 01 Home, Self Care Clinical Impression: Bleeding from wound Condition: Good Instructions: ED Wound Care Follow-Up: your,doctor in 3 days for wound check. [Other] Tammy Bautista MD [Physician No Access] - Tammy Bautista MD [Provider Admit Priv/Credential] - Comments: It is important that you follow-up with wound care for further care of this ongoing wound management. Try to leave it open to the air at least an hour or 2 a day. You can continue to use pads for any drainage. Return if you worsen. Discharge Date/Time: 02/25/21 20:27
== END 2021-02-25 20:27 | disposition home or self-care (01) ==
LOC: ED 18:48
DX: S21.001A Unspecified open wound of right breast, initial encounter (principal); X58.XXXA Exposure to other specified factors, initial encounter; C50.911 Malignant neoplasm of unspecified site of right female breast
CPT/HCPCS: 99282; 99284

== ENCOUNTER 2021-05-25 22:30 | Outpatient (CLI) | payer MEDICARE, OTHER | END 2021-05-25 22:31 | disposition critical access hospital (66) | LOC: EMS 22:30 | DX: R42 Dizziness and giddiness (principal); R00.0 Tachycardia, unspecified; R03.0 Elevated blood-pressure reading, without diagnosis of hypertension; R06.00 Dyspnea, unspecified | CPT/HCPCS: A0425; A0427 ==

== ENCOUNTER 2021-05-25 22:44 | Inpatient (IN) | payer MEDICARE, OTHER ==
--- NOTE | 2021-05-25 22:43 | ED Physician Documentation ---
PD HPI DYSPNEA - Stated complaint Stated Complaint: RESP DISTRESS, DIZZY, NEW AFIB - History obtained from History obtained from: Patient, EMS - History of Present Illness Timing - onset: Yesterday Timing - onset during: Rest Timing - details: Gradual onset Pain level max: 0 Pain level now: 0 Improved by: O2, Rest Worsened by: Exertion Associated symptoms: Palpitations. No: Fever, Cough, Hemoptysis, Wheezing, Chest pain / discomfort Similar symptoms before: Has not had sx before Recently seen: Not recently seen - Additional information Additional information: BIBA. Patient c/o 1-2 days gradual onset, steadily progressive dyspnea and rapid palpitations. Tonight the dyspnea became severe. EMS arrived to find patient with severe respiratory distress, pulse ox as low as 66% room air, improved to no higher than 86% with NRB. EMS also notes DYAN as high as 160s bpm. Patient requires my immediate attention on arrival due to severe dyspnea Review of Systems Unable to obtain: Other (ROS obtained later in ED stay after improvement with bipap) Constitutional: denies: Fever, Chills, Sweats Cardiac: reports: Palpitations, Pedal edema. denies: Chest pain / pressure, Calf pain Respiratory: reports: Dyspnea. denies: Cough, Hemoptysis, Wheezing GI: reports: Reviewed and negative Musculoskeletal: reports: Extremity swelling (BLE) Neurologic: reports: Reviewed and negative PD PAST MEDICAL HISTORY - Past Medical History Past Medical History: Yes Other Past Medical History: breast cancer - Present Medications Home Medications: Ambulatory Orders Medication Instructions Recorded Confirmed Lidocaine/Prilocain 2.5% Cream 5 applic TOP BID PRN #1 tu 02/09/21 05/08/21 [Emla 2.5% Cream] oxyCODONE [Roxicodone] 2.5 mg PO Q4-6H PRN #14 tablet 02/09/21 05/08/21 Ondansetron Odt [Zofran Odt] 4 mg TL Q6H PRN #30 tab 02/16/21 05/08/21 Silver Sulfadiazine Cream 0 applic TOP QD #25 gm 02/16/21 05/08/21 [Silvadene Cream] dexAMETHasone [Decadron] 8 mg PO UD #36 tablet 02/17/21 05/08/21 - Allergies Allergies/Adverse Reactions: Allergies Allergy/AdvReac Type Severity Reaction Status Date / Time No Known Drug Allergies Allergy Verified 02/25/21 18:59 PD ED PE NORMAL - Vitals Vital signs reviewed: Yes - General General: Well developed/nourished, Other (severe respiratory distress; able to answer some questions with gestures (nodding/shaking head) but she is too dyspneic to converse) - HEENT HEENT: PERRL, EOMI - Neck Neck: Supple, no meningeal sign - Cardiac Cardiac: No murmur - Abdomen Abdomen: Soft, Non tender - Derm Derm: Normal color PD ED PE EXPANDED - Cardiac Cardiac: Tachy, Irregularly irregular - Respiratory Respiratory: Distress, Labored, Rales, Decreased breath sounds - Extremities Extremities: Pedal edema bilateral Results - Vitals Vitals: Vital Signs - 24 hr 05/26/21 05/26/21 05/26/21 06:00 06:08 06:30 Temperature Heart Rate 104 H 122 H 117 H Respiratory 29 H 21 Rate Blood Pressure 145/85 H 106/65 O2 Saturation 98 98 05/26/21 05/26/21 05/26/21 07:00 07:29 08:30 Temperature 36.6 C Heart Rate 104 H 116 H 99 Respiratory 19 28 H 26 H Rate Blood Pressure 107/60 139/90 H 118/70 O2 Saturation 100 100 99 Oxygen O2 Source BIPAP - EKG (time done) No standard instances Rate: Rate (enter#) (145) Rhythm: Atrial fibrillation [place]: Normal Ischemia: Normal ST segments - Labs Labs: Laboratory Tests 05/25/21 05/25/21 05/25/21 23:00 23:00 23:00 WBC 6.1 RBC 3.86 L Hgb 10.5 L Hct 32.9 L MCV 85.2 MCH 27.2 MCHC 31.9 L RDW 19.7 H Plt Count 420 MPV 12.1 H Neut # (Auto) Not Reportable Lymph # (Auto) Not Reportable [place] # (Auto) Not Reportable Eos # (Auto) Not Reportable Baso # (Auto) Not Reportable Absolute Nucleated RBC Not Reportable Total Counted 100 Band Neuts % (Manual) 8 Abnorm Lymph % (Manual) 0 Metamyelocytes % 5 H Myelocytes % 5 H Nucleated RBC % Not Reportable Neutrophils # (Manual) 1.3 L Lymphocytes # (Manual) 3.1 Monocytes # (Manual) 1.0 Eosinophils # (Manual) 0.0 Basophils # (Manual) 0.0 Differential Comment MANUAL DIFFERENTIAL Platelet Estimate NORMAL (130-450,000) RBC Morph Micro Appear 1+ OVALOCYTES PT INR APTT Sodium 131 L Potassium 4.8 Chloride 97 L Carbon Dioxide 23 Anion Gap 11.0 BUN 25 H Creatinine 0.9 Estimated GFR (MDRD) 60 L Glucose 324 H Calcium 8.9 Total Bilirubin 0.6 AST 26 ALT 20 Alkaline Phosphatase 35 L Troponin I High Sens B-Natriuretic Peptide 281 H Total Protein 6.6 L Albumin 3.4 Globulin 3.2 Albumin/Globulin Ratio 1.1 Lipase 25 Nasal Adenovirus (PCR) Nasal B. parapertussis DNA (PCR) Nasal Coronavir 229E PCR Nasal Coronavir HKU1 PCR Nasal Coronavir NL63 PCR Nasal Coronavir OC43 PCR Nasal Enterovir/Rhinovir PCR Nasal Influenza B PCR Nasal Influenza A PCR Nasal Parainfluen 1 PCR Nasal Parainfluen 2 PCR Nasal Parainfluen 3 PCR Nasal Parainfluen 4 PCR Nasal RSV (PCR) Nasal B.pertussis DNA PCR Nasal C.pneumoniae (PCR) Omar Human Metapneumo PCR Nasal M.pneumoniae (PCR) Nasal SARS-CoV-2 (PCR) 05/25/21 05/25/21 05/25/21 23:00 23:27 23:31 WBC RBC Hgb Hct MCV MCH MCHC RDW Plt Count MPV Neut # (Auto) Lymph # (Auto) [place] # (Auto) Eos # (Auto) Baso # (Auto) Absolute Nucleated RBC Total Counted Band Neuts % (Manual) Abnorm Lymph % (Manual) Metamyelocytes % Myelocytes % Nucleated RBC % Neutrophils # (Manual) Lymphocytes # (Manual) Monocytes # (Manual) Eosinophils # (Manual) Basophils # (Manual) Differential Comment Platelet Estimate RBC Morph Micro Appear PT 12.6 INR 1.1 APTT 25.5 Sodium Potassium Chloride Carbon Dioxide Anion Gap BUN Creatinine Estimated GFR (MDRD) Glucose Calcium Total Bilirubin AST ALT Alkaline Phosphatase Troponin I High Sens 39.2 H* B-Natriuretic Peptide Total Protein Albumin Globulin Albumin/Globulin Ratio Lipase Nasal Adenovirus (PCR) NOT DETECTED Nasal B. parapertussis DNA (PCR) NOT DETECTED Nasal Coronavir 229E PCR NOT DETECTED Nasal Coronavir HKU1 PCR NOT DETECTED Nasal Coronavir NL63 PCR NOT DETECTED Nasal Coronavir OC43 PCR NOT DETECTED Nasal Enterovir/Rhinovir PCR NOT DETECTED Nasal Influenza B PCR NOT DETECTED Nasal Influenza A PCR NOT DETECTED Nasal Parainfluen 1 PCR NOT DETECTED Nasal Parainfluen 2 PCR NOT DETECTED Nasal Parainfluen 3 PCR NOT DETECTED Nasal Parainfluen 4 PCR NOT DETECTED Nasal RSV (PCR) NOT DETECTED Nasal B.pertussis DNA PCR NOT DETECTED Nasal C.pneumoniae (PCR) NOT DETECTED Omar Human Metapneumo PCR NOT DETECTED Nasal M.pneumoniae (PCR) NOT DETECTED Nasal SARS-CoV-2 (PCR) NOT DETECTED 05/26/21 02:06 WBC RBC Hgb Hct MCV MCH MCHC RDW Plt Count MPV Neut # (Auto) Lymph # (Auto) [place] # (Auto) Eos # (Auto) Baso # (Auto) Absolute Nucleated RBC Total Counted Band Neuts % (Manual) Abnorm Lymph % (Manual) Metamyelocytes % Myelocytes % Nucleated RBC % Neutrophils # (Manual) Lymphocytes # (Manual) Monocytes # (Manual) Eosinophils # (Manual) Basophils # (Manual) Differential Comment Platelet Estimate RBC Morph Micro Appear PT INR APTT Sodium Potassium Chloride Carbon Dioxide Anion Gap BUN Creatinine Estimated GFR (MDRD) Glucose Calcium Total Bilirubin AST ALT Alkaline Phosphatase Troponin I High Sens 50.0 H* B-Natriuretic Peptide Total Protein Albumin Globulin Albumin/Globulin Ratio Lipase Nasal Adenovirus (PCR) Nasal B. parapertussis DNA (PCR) Nasal Coronavir 229E PCR Nasal Coronavir HKU1 PCR Nasal Coronavir NL63 PCR Nasal Coronavir OC43 PCR Nasal Enterovir/Rhinovir PCR Nasal Influenza B PCR Nasal Influenza A PCR Nasal Parainfluen 1 PCR Nasal Parainfluen 2 PCR Nasal Parainfluen 3 PCR Nasal Parainfluen 4 PCR Nasal RSV (PCR) Nasal B.pertussis DNA PCR Nasal C.pneumoniae (PCR) Omar Human Metapneumo PCR Nasal M.pneumoniae (PCR) Nasal SARS-CoV-2 (PCR) - Rads (name of study) chest xray Radiology: Prelim report reviewed, See rad report PD MEDICAL DECISION MAKING - ED course Complexity details: reviewed old records, reviewed results, re-evaluated patient, considered differential, d/w patient ED course: presents in extremis with severe dyspnea and DYAN. She is placed on bipap and given IV cardizem (10 mg given by medics followed by 10mg IV given in ED) which improved rate to 120s. she is subsequently started on IV cardizem drip for ongoing rate control. She is given 60mg IV lasix for pulmonary edema on cxr, and one inch nitroglycerin paste applied to anterior chest wall for vasodilatory effect. These interventions resulted in significant improvement in her vital signs and clinical appearance, although she did not tolerate being taken off the bipap after a few hours of being on it, and thus it was restarted. Plan is to admit when a bed becomes available. I was able to obtain more information from her after she improved. atrial fibrillation is a new diagnosis for her, and she says she has not had fluid on her lungs in the past - Critical Care Time(min): 50 Time Includes: Direct patient care, Review records, Reassess patient, Document care, See progress note Data interpretation: Labs, Pulse ox, CXR, See progress note Procedures included in critical care time: See progress note Procedures excluded from critical care time: See progress note Departure - Departure Disposition: 66 [facility] DC/Xfer Clinical Impression: Rapid atrial fibrillation Pulmonary edema Qualifiers: Chronicity: acute Qualified Code(s): J81.0 - Acute pulmonary edema Condition: Stable Discharge Date/Time: 05/26/21 16:30
[2021-05-25] MEDS ORDERED: FUROSEMIDE 40 MG/4 ML VIAL IVP STA (22:59)
[2021-05-25] MEDS ORDERED: NITROGLYCERIN 2% PASTE TOP STA (22:59)
[2021-05-25] MEDS ORDERED: diltiaZEM INJ 5 MG/ML VIAL IVP STA (23:03)
[2021-05-25 23:09] LABS: BASOPHILS % (AUTO) 0.8 %; HCT - HEMATOCRIT 32.9 % (37.0-47.0); HGB - HEMOGLOBIN 10.5 g/dL (12.0-16.0); LYMPHOCYTES % (AUTO) 43.2 %; MEAN CORPUSCULAR HEMOGLOBIN 27.2 pg (27.0-31.0); MEAN CORPUSCULAR HGB CONC 31.9 g/dL (32.0-36.0); MEAN CORPUSCULAR VOLUME 85.2 fL (81.0-99.0); MEAN PLATELET VOLUME 12.1 fL (7.9-10.8); MONOCYTES % (AUTO) 38.3 %; NEUTROPHILS % (AUTO) 13.1 %; PLT - PLATELET COUNT 420 10^3/uL (130-450); RED BLOOD COUNT 3.86 10^6/uL (4.20-5.40); RED CELL DISTRIBUTION WIDTH 19.7 % (12.0-15.0); WHITE BLOOD COUNT 6.1 x10^3/uL (4.8-10.8)
[2021-05-25 23:15] LABS: ABNORMAL LYMPHS % (MANUAL) 0 %
[2021-05-25 23:21] LABS: ALBUMIN 3.4 g/dL (3.2-5.5); ALBUMIN/GLOBULIN RATIO 1.1 (1.0-2.2); BILIRUBIN,TOTAL 0.6 mg/dL (0.2-1.0); CALCIUM 8.9 mg/dL (8.5-10.3); CREATININE 0.9 mg/dL (0.4-1.0); POTASSIUM 4.8 mmol/L (3.5-5.0); TOTAL PROTEIN 6.6 g/dL (6.7-8.2)
--- NOTE | 2021-05-25 23:24 | XRAY Report ---
PROCEDURE: Chest 1 View X-Ray INDICATIONS: dyspnea TECHNIQUE: One view of the chest was acquired. COMPARISON: CT chest 04/17/2021, 01/14/2021 FINDINGS: Surgical changes and devices: There is a left subclavian Port-A-Cath with tip extending into the supe rior vena cava. Lungs and pleura: There is pulmonary edema bilaterally with medial bibasilar consolidation or atelec tasis. There is an asymmetric indistinct opacity in the right apex corresponding to the masslike pleu ral thickening on prior CT. Small bilateral pleural effusions are present. No pneumothorax. Mediastinum: Mediastinal contours appear within normal limits. Heart size is normal. Bones and chest wall: No suspicious bony lesions. Overlying soft tissues appear unremarkable. IMPRESSION: 1. Pulmonary edema and small bilateral pleural effusions. 2. Medial bibasilar atelectasis or consolidation. 3. Right apical opacity demonstrated corresponding to the masslike pleural thickening on prior CT. Reviewed by: Marcelo Gustafson MD on 05/25/2021 11:23 PM PST Approved by: Marcelo Gustafson MD on 05/25/2021 11:23 PM PST Station ID: [id number]
[2021-05-25 23:31] LABS: BAND NEUTROPHILS % (MANUAL) 8 %; LYMPHOCYTES # (MANUAL) 3.1 10^3/uL (1.5-3.5); LYMPHOCYTES % (MANUAL) 51 %; METAMYELOCYTES % (MANUAL) 5 %; MYELOCYTES % (MANUAL) 5 %; NEUTROPHILS # (MANUAL) 1.3 10^3/uL (1.5-6.6)
[2021-05-25 23:32] LABS: PLATELET ESTIMATE, MANUAL NORMAL (130-450,000) (NORMAL)
[2021-05-25 23:35] LABS: DIFFERENTIAL COMMENT MANUAL DIFFERENTIAL
[2021-05-25 23:42] LABS: INR 1.1 (0.8-1.2); PT - PROTHROMBIN TIME 12.6 secs (9.9-12.6)
[2021-05-25 23:53] LABS: PARTIAL THROMBOPLASTIN TIME 25.5 secs (24.9-33.3)
[2021-05-25] MEDS ORDERED: diltiaZEM INJ 125 MG in DEXTROSE 5% 100 ML IV STA (23:54)
[2021-05-26] MEDS ORDERED: diltiaZEM INJ 5 MG/ML VIAL ONE (00:14)
[2021-05-26 01:11] LABS: B. PARAPERTUSSIS- RESP PCR PAN NOT DETECTED; B. PERTUSSIS- RESP PCR PANEL NOT DETECTED; C. PNEUMONIAE- RESP PCR PANEL NOT DETECTED; CORONAVIRUS 229E-RESP PCR NOT DETECTED; CORONAVIRUS HKU1-RESP PCR NOT DETECTED; CORONAVIRUS NL63-RESP PCR NOT DETECTED; CORONAVIRUS OC43-RESP PCR NOT DETECTED; HUMAN METAPNEUMOVIRUS NOT DETECTED; INFLUENZA A- RESP PCR PANEL NOT DETECTED; INFLUENZA B - RESP PCR PANEL NOT DETECTED; M. PNEUMONIAE- RESP PCR PANEL NOT DETECTED; PARAINFLUENZA VIRUS 1 NOT DETECTED; PARAINFLUENZA VIRUS 2 NOT DETECTED; PARAINFLUENZA VIRUS 3 NOT DETECTED; PARAINFLUENZA VIRUS 4 NOT DETECTED; RHINOVIRUS/ENTEROVIRUS NOT DETECTED; RSV- RESP PCR PANEL NOT DETECTED; SARS-CoV-2 -RESP PCR PANEL NOT DETECTED
[2021-05-26] MEDS ORDERED: ONDANSETRON ODT 4 MG TABLET TL PRN (09:25)
[2021-05-26] MEDS ORDERED: oxyCODONE 5 MG TABLET PO PRN (09:25)
[2021-05-26] MEDS ORDERED: ACETAMINOPHEN 325 MG TABLET PO PRN (09:25)
[2021-05-26] MEDS ORDERED: ONDANSETRON 4 MG/2 ML VIAL IVP PRN (09:25)
[2021-05-26] MEDS ORDERED: SODIUM CHLORIDE FLUSH 0.9% 10 ML SYRINGE IVP PRN (09:25)
[2021-05-26] MEDS ORDERED: FUROSEMIDE 40 MG/4 ML VIAL IVP STA (09:31)
[2021-05-26 09:57] LABS: CALCIUM 8.8 mg/dL (8.5-10.3); CREATININE 0.8 mg/dL (0.4-1.0); POTASSIUM 4.3 mmol/L (3.5-5.0)
[2021-05-26 10:21] LABS: INR 1.2 (0.8-1.2); PT - PROTHROMBIN TIME 13.4 secs (9.9-12.6)
[2021-05-26] MEDS: diltiaZEM INJ 125 MG in DEXTROSE 5% 100 ML IV SCH (11:12)
[2021-05-26] MEDS: APIXABAN 5 MG TABLET PO SCH ×2 (12:05→20:09)
[2021-05-26] MEDS ORDERED: iohexoL-300 100 ML VIAL ONE (14:15)
[2021-05-26] MEDS ORDERED: iohexoL-300 100 ML VIAL IVP ONE (15:08)
--- NOTE | 2021-05-26 15:52 | CT Report ---
PROCEDURE: ANGIO CHEST W/WO INDICATIONS: new onset afib, breast ca w mets CONTRAST: IV CONTRAST: Optiray 320 ml: 80 PO CONTRAST: *NO PO CONTRAST TECHNIQUE: After the administration of intravenous contrast, 2 mm axial images were acquired from the pulmonary apices to the posterior costophrenic angles during the arterial phase. In addition, 1 mm lung kernel and 5 mm soft tissue kernel reconstructions were performed. 3-dimensional coronal oblique maximum int ensity projection (MIP) reformats, 8 mm axial MIP, and 5 mm coronal and sagittal MPR reformats were t hen performed through the thorax. For radiation dose reduction, the following was used: automated exp osure control, adjustment of mA and/or kV according to patient size. COMPARISON: CT chest dated 04/17/2021 FINDINGS: Image quality: Diagnostic. Pulmonary arteries: Pulmonary arteries are normal in size, and demonstrate no intraluminal filling d efects to suggest central pulmonary embolism. Lungs and pleura: There are patchy bilateral round glass opacities throughout the visualized lung fie lds, likely representing acute pulmonary edema. Moderately large bilateral pleural effusions and comp ressive bibasilar atelectasis are now present. Mediastinum: Heart size is normal, without pericardial effusion. At least moderate coronary artery calcifications are present. No mediastinal or hilar adenopathy. Thoracic aorta is normal in caliber and enhancement. Esophagus is normal in caliber, without hiatal hernia. Bones and chest wall: The appearance of the right breast appears a further improved. Although this st udy is done at an earlier stage of contrast enhancement, the medial breast/chest wall mass appears di minished in size. Again noted is diffuse edematous change and skin thickening in the residual right b reast. S-shaped thoracolumbar scoliotic curvature. No lytic or blastic bony lesions identified. Again noted is a 2.3 cm right thyroid nodule. Right axillary adenopathy, as before. Abdomen: Visualized upper abdominal solid organs appear normal in the early arterial phase of enhanc ement. IMPRESSION: 1. No evidence of acute pulmonary emboli. 2. Stabilization of findings likely represents a congestive heart failure exacerbation, including mil d alveolar pulmonary edema, moderately large bilateral pleural effusions, and dense bibasilar atelect asis. 3. Probable continued improvement in appearance of the right breast/chest wall mass. 4. Prominent right thyroid nodule. Recommend further evaluation with ultrasound after acute symptomat ology resolves. CLINICAL RECOMMENDATION STATEMENTS: In patients <35 years with an ITN detected on CT, MRI, or extrathyroidal ultrasound, the Committee re commends further evaluation with dedicated thyroid ultrasound if the nodule is "e1 cm and has no susp icious imaging features, and if the patient has normal life expectancy. In patients "e35 years with an ITN detected on CT, MRI, or extrathyroidal ultrasound, the Committee r ecommends further evaluation with dedicated thyroid ultrasound if the nodule is "e1.5 cm and has no s uspicious imaging features, and if the patient has normal life expectancy. (ACR, 2014) Reviewed by: Murali Perry MD on 05/26/2021 3:51 PM PST Approved by: Murali Perry MD on 05/26/2021 3:51 PM PST Station ID: [id number]
--- NOTE | 2021-05-26 17:00 | HISTORY & PHYSICAL EXAMINATION ---
Chief Complaint - Chief Complaint Chief Complaint: Palpitations, lightheadedness History of Present Illness - Admitted From Admitted From:: Emergency Room - History Obtained From History obtained from: Thais BEAULIEU - History of Present Illness HPI Comment/Other: Pt is a 80 y.o female who presented to the ER via EMS after she had an episode of lightheadedness and heart palpitations yesterday. She states that "she felt like she was going to pass out." Her called 911. She has never had an episode like this in the past. She says in the past couple of days she noticed some mild swelling of her feet that has resolved. EMS arrived to find patient with severe respiratory distress, pulse ox as low as 66% room air, improved to no higher than 86% with NRB. EMS also notes DYAN as high as 160s bpm. Patient required immediate attention on arrival due to severe hypoxia. She has a history of ER+/WA-/HER2 amplified IDC and she states that she thought it was a side effect of her chemotherapy at first which she last received 05/14/21. Her chemo consits of Taxol/Herceptin/Perjeta. Scans showed a large right breast mass extending to the chest wall, supraclavicular region as well as right axillary region and osseous destruction is present with right ribs secondary to mass lesion as above.She denies any chest pain, current dyspnea, fever, vomiting, diaphoresis, confusion, or loss of sensation. She last had an echo 02/04/21 that shows mild mitral regurgitation and severe LA volume enlargement of 63 mL/m2. History - Past Medical History Cardiovascular: reports: None Respiratory: reports: None Neuro: reports: None Endocrine/Autoimmune: reports: None GI: reports: None FLAG SIGNALMAN: reports: None : reports: None HEENT: reports: None Psych: reports: None Musculoskeletal: reports: None Derm: reports: None MRSA Hx?: No Other Past Medical History: breast cancer - Past Surgical History HEENT: reports: Cataracts - Family & Social History Family History: Mother: (father unknown cardiac disease), Father: Living arrangement: At home Living Situation: With spouse/s.o. Social History Notes: 2 children - both healthy - Substance History Use: Uses substance without health or social issues: NONE - POLST Patient has POLST: No Meds/Allgy - Home Medications Home Medications: Ambulatory Orders Medication Instructions Recorded Confirmed Lidocaine/Prilocain 2.5% Cream 5 applic TOP BID PRN #1 tu 02/09/21 05/27/21 [Emla 2.5% Cream] Ondansetron Odt [Zofran Odt] 4 mg TL Q6H PRN #30 tab 02/16/21 05/27/21 Silver Sulfadiazine Cream 0 applic TOP QD #25 gm 02/16/21 05/27/21 [Silvadene Cream] dexAMETHasone [Decadron] 8 mg PO UD #36 tablet 02/17/21 05/27/21 - Allergies Allergies/Adverse Reactions: Allergies Allergy/AdvReac Type Severity Reaction Status Date / Time No Known Drug Allergies Allergy Verified 02/25/21 18:59 Review of Systems - Constitutional Constitutional: reports: Poor appetite (attributes to chemo, takes ensure and has not had wt loss). denies: Fatigue, Fever, Weakness, Diaphoresis, Weight loss - Eyes Eyes: denies: Blurred vision, Vision loss, Dipolpia - Ears, Nose & Throat Ears, Nose & Throat: denies: Tinnitus, Vertigo, Mouth lesions, Bleeding gums - Cardiovascular Cariovascular: reports: Irregular heart rate, Palpitations, Edema, Lightheadedness. denies: Chest pain, Syncope - Respiratory Respiratory: denies: Cough, Wheezing, SOB at rest - Gastrointestinal Gastrointestinal: denies: Constipation, Change in bowel habits, Nausea, Vomiting - Genitourinary Genitourinary: denies: Dysuria, Frequency, Urgency - Musculoskeletal Musculoskeletal: denies: Muscle pain, Back pain, Muscle aches - Integumentary Integumentary: denies: Rash, Lesions - Neurological Neurological: denies: General weakness, Headache, Numbness - Hematologic/Lymphatic Hematologic/Lymphatic: denies: Bruising, Bleeding tendencies Exam - Vital Signs Vital Signs: Vital Signs x48h Temp Pulse Pulse Resp BP BP Pulse Ox 05/26/21 16:37 36.6 C 97 19 134/78 H 99 05/26/21 16:30 115 H 21 05/26/21 15:25 102 H 32 H 164/100 H 88 L 05/26/21 14:57 121 H 31 H 152/82 H 92 05/26/21 14:20 104 H 27 H 133/64 H 98 05/26/21 13:30 103 H 26 H 124/75 99 05/26/21 13:00 103 H 26 H 124/75 99 05/26/21 12:39 106 H 19 121/72 100 05/26/21 12:07 115 H 24 117/67 97 05/26/21 11:30 112 H 22 126/80 97 05/26/21 11:14 112 H 32 H 141/98 H 98 05/26/21 11:00 112 H 05/26/21 09:37 36.6 C 106 H 32 H 129/69 100 - Physical Exam General Appearance: negative: No acute distress, Alert Eyes Bilateral: negative: Normal inspection, PERRL ENT: negative: Oral lesions, Dry mucous membranes Neck: negative: No JVD Respiratory: positive: Other (decreased breath sounds). negative: No respiratory distress Cardiovascular: positive: Irregularly irregular Peripheral Pulses: negative: 2+ Abdomen: negative: Non-tender Skin: negative: Color nml Extremities: negative: Non-tender, No pedal edema Conclusion/Plan - Problem List (1) Rapid atrial fibrillation Conclusion/Plan: Pt placed on IV diltiazem for rate control and started on IV apixaban for VTE prophylaxis. Continue both medications and monitor for stable HR < 100 bpm. Pt will need echocardiogram to further investigate the underlying cause - tech is unavailable until estimated date 06/01/21. (2) Acute pulmonary edema Assessment/Plan: CT angio reveals patchy bilateral round glass opacities that are suggestive of acute pulmonary edema with moderate bilateral pulmonary effusions. Pt is on BiPAP and tolerating well with O2 sat of 99%. Will continue to monitor for any changes. (3) Thyroid nodule Assessment/Plan: CT reveals a solitary R thyroid nodule. Recommend f/u with PCP. (4) Breast cancer Assessment/Plan: Pt will continue to f/u with oncologist Dr. Rueda for coordination of her chemotherapy treatment. - Lab Results Lab results reviewed: Yes Fish Bones: 05/27/21 04:21 05/27/21 04:21 - Diagnostic Imaging Results Diagnostic Imaging Results: positive: Final report reviewed - EKG Results EKG Comparison: No prior EKG EKG Findings: Atrial fibrillation w/ RVR Core Measures - DVT/VTE - Prophylaxis VTE/DVT Prophylaxis med ordered at admit?: Yes
[2021-05-26] MEDS: SODIUM CHLORIDE FLUSH 0.9% 10 ML SYRINGE IVP SCH (18:18)
[2021-05-27] MEDS: diltiaZEM INJ 125 MG in DEXTROSE 5% 100 ML IV SCH (00:10)
[2021-05-27] MEDS: SODIUM CHLORIDE FLUSH 0.9% 10 ML SYRINGE IVP SCH ×3 (03:49→17:11)
[2021-05-27 05:53] LABS: CALCIUM 8.7 mg/dL (8.5-10.3); CREATININE 0.9 mg/dL (0.4-1.0)
[2021-05-27 06:06] LABS: VBG PH 7.483 (7.31-7.41)
[2021-05-27 06:07] LABS: CALCIUM, IONIZED 1.13 mmol/L (1.15-1.33)
[2021-05-27 06:12] LABS: MAGNESIUM 2.2 mg/dL (1.7-2.8); PHOSPHORUS 3.5 mg/dL (2.5-4.6)
[2021-05-27 06:22] LABS: BASOPHILS % (AUTO) 1.2 %; HCT - HEMATOCRIT 25.7 % (37.0-47.0); HGB - HEMOGLOBIN 8.5 g/dL (12.0-16.0); MEAN CORPUSCULAR HEMOGLOBIN 26.8 pg (27.0-31.0); MEAN CORPUSCULAR HGB CONC 33.1 g/dL (32.0-36.0); MEAN CORPUSCULAR VOLUME 81.1 fL (81.0-99.0); MONOCYTES % (AUTO) 36.2 %; NEUTROPHILS % (AUTO) 28.7 %; PLT - PLATELET COUNT 324 10^3/uL (130-450); RED BLOOD COUNT 3.17 10^6/uL (4.20-5.40); RED CELL DISTRIBUTION WIDTH 18.7 % (12.0-15.0); WHITE BLOOD COUNT 4.3 x10^3/uL (4.8-10.8)
[2021-05-27 06:26] LABS: INR 1.5 (0.8-1.2); PT - PROTHROMBIN TIME 16.7 secs (9.9-12.6)
[2021-05-27 06:28] LABS: ABNORMAL LYMPHS % (MANUAL) 0 %; BAND NEUTROPHILS % (MANUAL) 0 %
[2021-05-27 07:00] LABS: DIFFERENTIAL COMMENT MANUAL DIFFERENTIAL; LYMPHOCYTES # (MANUAL) 1.5 10^3/uL (1.5-3.5); LYMPHOCYTES % (MANUAL) 33 %; METAMYELOCYTES % (MANUAL) 1 %; MONOCYTES # (MANUAL) 1.2 10^3/uL (0.0-1.0); MYELOCYTES % (MANUAL) 5 %; NEUTROPHILS # (MANUAL) 1.3 10^3/uL (1.5-6.6); PLATELET ESTIMATE, MANUAL NORMAL (130-450,000) (NORMAL); REACTIVE LYMPHS % (MANUAL) 1 %
[2021-05-27 07:23] LABS: BILIRUBIN,URINE NEGATIVE (NEGATIVE); GLUCOSE, URINE (UA) NEGATIVE (NEGATIVE); KETONES,URINE (UA) NEGATIVE (NEGATIVE); LEUKOCYTE ESTERASE, URINE NEGATIVE (NEGATIVE); NITRITE,URINE NEGATIVE (NEGATIVE); OCCULT BLOOD,URINE NEGATIVE (NEGATIVE); PH,URINE 5.5 PH (5.0-7.5); PROTEIN,URINE NEGATIVE (NEGATIVE); UROBILINOGEN,URINE 0.2 (NORMAL) E.U./dL (NORMAL)
[2021-05-27 07:30] LABS: CLARITY,URINE CLEAR (CLEAR)
[2021-05-27] MEDS: APIXABAN 5 MG TABLET PO SCH (11:03)
[2021-05-27] MEDS: diltiaZEM CD 120 MG CAPSULE PO SCH (11:03)
--- NOTE | 2021-05-27 11:51 | PHARMACY PROGRESS NOTE ---
- Best Possible Medication History Admit Date and Time: 05/26/21 0925 Processed by: Pharmacy Medication History completed: Yes Patient Interview: Pt unable to participate Secondary Source(s): Pharmacy records, Insurance records As the person ultimately responsible for medication therapy, providers are able to order a medication from an existing home medication list in [facility] via the "Reconcile Routine" prior to Confirmation of that medication by direct support professional caregiver. Such practice is discouraged except when the physician, in their clinical judgment, deems that a medical need exists for a medication without regard to previous use.
--- NOTE | 2021-05-27 12:13 | PROVIDER PROGRESS NOTE ---
Subjective - Prog Note Date Prog Note Date: 05/27/21 Prog Note Time: 12:12 - Subjective Pt reports feeling: Improved Subjective: Patient reports she feels improved today. She has ambulated with assistance. She denies any lightheadedness, chest pain, or shortness of breath. She is eager to eat. Objective - Vital Signs/Intake & Output Vital Signs: Vital Signs x48h Pulse Pulse Resp BP Pulse Ox 05/27/21 10:00 84 20 106/56 L 95 05/27/21 09:00 76 19 83/55 L 98 05/27/21 08:00 83 19 109/54 L 98 05/27/21 07:00 75 19 115/61 93 05/27/21 06:00 70 20 121/58 L 96 05/27/21 05:30 97 05/27/21 05:00 86 19 116/48 L 95 Intake & Output: Intake & Output 05/24/21 05/25/21 05/26/21 05/27/21 23:59 23:59 23:59 23:59 Intake Total 177.917 136.833 Output Total 600 300 Balance -422.083 -163.167 - Objective General Appearance: negative: No acute distress, Alert Eyes Bilateral: negative: Normal inspection Respiratory: negative: Breath sounds nml Cardiovascular: positive: Irregularly irregular Skin: negative: Color nml, Cyanosis, Diaphoresis Extremities: negative: Non-tender, Nml appearance, Pedal edema Neurologic/Psychiatric: negative: Oriented x3, Mood/affect nml - Lab Results Fish Bones: 05/27/21 04:21 05/27/21 04:21 Other Labs: Lab Results x24hrs 05/27/21 05/27/21 05/27/21 Range/Units 06:50 04:21 04:21 WBC (4.8-10.8) x10^3/uL RBC (4.20-5.40) 10^6/uL Hgb (12.0-16.0) g/dL Hct (37.0-47.0) % MCV (81.0-99.0) fL MCH (27.0-31.0) pg MCHC (32.0-36.0) g/dL RDW (12.0-15.0) % Plt Count (130-450) 10^3/uL MPV (7.9-10.8) fL Neut # (Auto) Lymph # (Auto) [place] # (Auto) Eos # (Auto) Baso # (Auto) Absolute Nucleated RBC Total Counted Band Neuts % (Manual) (0 - 10) % Reactive Lymphs % (Man) % Abnorm Lymph % (Manual) % Metamyelocytes % ( - 0) % Myelocytes % ( - 0) % Nucleated RBC % Neutrophils # (Manual) (1.5-6.6) 10^3/uL Lymphocytes # (Manual) (1.5-3.5) 10^3/uL Monocytes # (Manual) (0.0-1.0) 10^3/uL Eosinophils # (Manual) (0-0.7) 10^3/uL Basophils # (Manual) (0-0.1) 10^3/uL Differential Comment Platelet Estimate (NORMAL) RBC Morph Micro Appear (NORMAL) PT (9.9-12.6) secs INR (0.8-1.2) VBG pH 7.483 H (7.31-7.41) Ionized Calcium 1.13 L (1.15-1.33) mmol/L Sodium (135-145) mmol/L Potassium (3.5-5.0) mmol/L Chloride (101-111) mmol/L Carbon Dioxide (21-32) mmol/L Anion Gap (6-13) BUN (6-20) mg/dL Creatinine (0.4-1.0) mg/dL Estimated GFR (MDRD) (>89) Glucose (70-100) mg/dL Calcium (8.5-10.3) mg/dL Phosphorus 3.5 (2.5-4.6) mg/dL Magnesium 2.2 (1.7-2.8) mg/dL Urine Color DARK YELLOW Urine Clarity CLEAR (CLEAR) Urine pH 5.5 (5.0-7.5) PH Ur Specific [place] 1.015 (1.002-1.030) Urine Protein NEGATIVE (NEGATIVE) mg/dL Urine Glucose (UA) NEGATIVE (NEGATIVE) mg/dL Urine Ketones NEGATIVE (NEGATIVE) mg/dL Urine Occult Blood NEGATIVE (NEGATIVE) Urine Nitrite NEGATIVE (NEGATIVE) Urine Bilirubin NEGATIVE (NEGATIVE) Urine Urobilinogen 0.2 (NORMAL) (NORMAL) E.U./dL Ur Leukocyte Esterase NEGATIVE (NEGATIVE) Ur Microscopic Review NOT INDICATED Urine Culture Comments NOT INDICATED Nasal Screen MRSA (PCR) (NEGATIVE) 05/27/21 05/27/21 05/27/21 Range/Units 04:21 04:21 04:21 WBC 4.3 L (4.8-10.8) x10^3/uL RBC 3.17 L (4.20-5.40) 10^6/uL Hgb 8.5 L (12.0-16.0) g/dL Hct 25.7 L (37.0-47.0) % MCV 81.1 (81.0-99.0) fL MCH 26.8 L (27.0-31.0) pg MCHC 33.1 (32.0-36.0) g/dL RDW 18.7 H (12.0-15.0) % Plt Count 324 (130-450) 10^3/uL MPV 12.0 H (7.9-10.8) fL Neut # (Auto) Not Reportable Lymph # (Auto) Not Reportable [place] # (Auto) Not Reportable Eos # (Auto) Not Reportable Baso # (Auto) Not Reportable Absolute Nucleated RBC Not Reportable Total Counted 100 Band Neuts % (Manual) 0 (0 - 10) % Reactive Lymphs % (Man) 1 % Abnorm Lymph % (Manual) 0 % Metamyelocytes % 1 H ( - 0) % Myelocytes % 5 H ( - 0) % Nucleated RBC % Not Reportable Neutrophils # (Manual) 1.3 L (1.5-6.6) 10^3/uL Lymphocytes # (Manual) 1.5 (1.5-3.5) 10^3/uL Monocytes # (Manual) 1.2 H (0.0-1.0) 10^3/uL Eosinophils # (Manual) 0.0 (0-0.7) 10^3/uL Basophils # (Manual) 0.0 (0-0.1) 10^3/uL Differential Comment MANUAL DIFFERENTIAL Platelet Estimate NORMAL (130-450,000) (NORMAL) RBC Morph Micro Appear 1+ OVALOCYTES (NORMAL) PT 16.7 H (9.9-12.6) secs INR 1.5 H (0.8-1.2) VBG pH (7.31-7.41) Ionized Calcium (1.15-1.33) mmol/L Sodium 132 L (135-145) mmol/L Potassium 4.0 (3.5-5.0) mmol/L Chloride 96 L (101-111) mmol/L Carbon Dioxide 26 (21-32) mmol/L Anion Gap 10.0 (6-13) BUN 26 H (6-20) mg/dL Creatinine 0.9 (0.4-1.0) mg/dL Estimated GFR (MDRD) 60 L (>89) Glucose 116 H (70-100) mg/dL Calcium 8.7 (8.5-10.3) mg/dL Phosphorus (2.5-4.6) mg/dL Magnesium (1.7-2.8) mg/dL Urine Color Urine Clarity (CLEAR) Urine pH (5.0-7.5) PH Ur Specific [place] (1.002-1.030) Urine Protein (NEGATIVE) mg/dL Urine Glucose (UA) (NEGATIVE) mg/dL Urine Ketones (NEGATIVE) mg/dL Urine Occult Blood (NEGATIVE) Urine Nitrite (NEGATIVE) Urine Bilirubin (NEGATIVE) Urine Urobilinogen (NORMAL) E.U./dL Ur Leukocyte Esterase (NEGATIVE) Ur Microscopic Review Urine Culture Comments Nasal Screen MRSA (PCR) (NEGATIVE) 05/26/21 Range/Units 16:30 WBC (4.8-10.8) x10^3/uL RBC (4.20-5.40) 10^6/uL Hgb (12.0-16.0) g/dL Hct (37.0-47.0) % MCV (81.0-99.0) fL MCH (27.0-31.0) pg MCHC (32.0-36.0) g/dL RDW (12.0-15.0) % Plt Count (130-450) 10^3/uL MPV (7.9-10.8) fL Neut # (Auto) Lymph # (Auto) [place] # (Auto) Eos # (Auto) Baso # (Auto) Absolute Nucleated RBC Total Counted Band Neuts % (Manual) (0 - 10) % Reactive Lymphs % (Man) % Abnorm Lymph % (Manual) % Metamyelocytes % ( - 0) % Myelocytes % ( - 0) % Nucleated RBC % Neutrophils # (Manual) (1.5-6.6) 10^3/uL Lymphocytes # (Manual) (1.5-3.5) 10^3/uL Monocytes # (Manual) (0.0-1.0) 10^3/uL Eosinophils # (Manual) (0-0.7) 10^3/uL Basophils # (Manual) (0-0.1) 10^3/uL Differential Comment Platelet Estimate (NORMAL) RBC Morph Micro Appear (NORMAL) PT (9.9-12.6) secs INR (0.8-1.2) VBG pH (7.31-7.41) Ionized Calcium (1.15-1.33) mmol/L Sodium (135-145) mmol/L Potassium (3.5-5.0) mmol/L Chloride (101-111) mmol/L Carbon Dioxide (21-32) mmol/L Anion Gap (6-13) BUN (6-20) mg/dL Creatinine (0.4-1.0) mg/dL Estimated GFR (MDRD) (>89) Glucose (70-100) mg/dL Calcium (8.5-10.3) mg/dL Phosphorus (2.5-4.6) mg/dL Magnesium (1.7-2.8) mg/dL Urine Color Urine Clarity (CLEAR) Urine pH (5.0-7.5) PH Ur Specific [place] (1.002-1.030) Urine Protein (NEGATIVE) mg/dL Urine Glucose (UA) (NEGATIVE) mg/dL Urine Ketones (NEGATIVE) mg/dL Urine Occult Blood (NEGATIVE) Urine Nitrite (NEGATIVE) Urine Bilirubin (NEGATIVE) Urine Urobilinogen (NORMAL) E.U./dL Ur Leukocyte Esterase (NEGATIVE) Ur Microscopic Review Urine Culture Comments Nasal Screen MRSA (PCR) NEGATIVE (NEGATIVE) ABX Reporting Has patient been on IV antibiotics over the past 48 hours?: No Assessment/Plan - Problem List (1) Rapid atrial fibrillation Impression: Pt has been transitioned to PO rate control with diltiazem and anticoagulation with apixaban. Heart rate has stabilized at 75-85 bpm. Pt will need echocardiogram to further investigate the condition of her heart at a later date - tech is unavailable until estimated date 06/01/21. Discussed that she will need to continue rate control medications. (2) Acute pulmonary edema Assessment/Plan: CT angio reveals patchy bilateral round glass opacities that are suggestive of acute pulmonary edema with moderate bilateral pulmonary effusions. Pt is current ly on 4L oxygen via nasal cannula and tolerating well with O2 sat of 96%. Discussed in depth that the hypoxia she experiences without supplemental oxygen is what is keeping her hospitalized. We talked about her options of going home with supplemental oxygen or remaining inpatient and continuing to provide supporitve care to improve hypoxia. She prefers to stay and avoid being discharged on supplemental oxygen. Will continue to monitor and discussed slowly weaning her off the supplemental oxygen. (3) Pleural effusion Assessment/Plan: CT angio showed moderate bilateral pleural effusions. Pt continued with hypoxia after removal of supplemental oxygen. Discussed therapeutic thoracostomy with radiologist and pts oncologist. Chest US was obtained to compare with CT angio and last the size for radiologist to evaluate. Radiologist does not feel that the effusions are large enough to warrant proceeding with the thoracostomy. Would prefer to monitor at home and track the improvement. If no improvement will discuss intervention at that time. She is in agreement with this plan. (4) Thyroid nodule Assessment/Plan: CT reveals a solitary R thyroid nodule. Recommend f/u with PCP. (5) Breast cancer Assessment/Plan: Pt will continue to f/u with oncologist Dr. Rueda for coordination of her chemotherapy treatment.
--- NOTE | 2021-05-27 13:28 | Ultrasound Report ---
PROCEDURE: Chest INDICATIONS: pleural effusion size TECHNIQUE: Real-time scanning was performed, and a suitable site was marked by the utility aide for thoracentesis to be performed by the referring clinician. COMPARISON: CT pulmonary angiogram 05/26/2021. FINDINGS: An effusion is noted in the right and left thorax, and a suitable overlying site was marked for thora centesis. Distance from the skin surface to the pleural fluid is 1.7 on the right and 1.8 cm on the left IMPRESSION: Bilateral pleural effusions. Reviewed by: Chintan Doshi MD on 05/27/2021 1:26 PM PST Approved by: Chintan Doshi MD on 05/27/2021 1:26 PM [facility] Station ID: [id number]
[2021-05-28 05:20] LABS: CALCIUM, IONIZED 1.14 mmol/L (1.15-1.33); VBG PH 7.465 (7.31-7.41)
[2021-05-28 05:31] LABS: MAGNESIUM 2.4 mg/dL (1.7-2.8); PHOSPHORUS 3.2 mg/dL (2.5-4.6)
[2021-05-28] MEDS: SODIUM CHLORIDE FLUSH 0.9% 10 ML SYRINGE IVP SCH ×3 (07:08→17:07)
[2021-05-28] MEDS: diltiaZEM CD 120 MG CAPSULE PO SCH (09:22)
[2021-05-28] MEDS: APIXABAN 5 MG TABLET PO SCH ×2 (09:22→20:44)
[2021-05-28] MEDS: FUROSEMIDE 20 MG/2 ML VIAL IVP SCH (09:23)
--- NOTE | 2021-05-28 11:32 | PROVIDER PROGRESS NOTE ---
Subjective - Prog Note Date Prog Note Date: 05/28/21 Prog Note Time: 11:29 - Subjective Pt reports feeling: Improved Subjective: Patient reports she is feeling well today. she slept well overnight. she continues to get up on her own just to use the bathroom. She denies shortness of breath while doing this, but states that it "is a lot of work." She has a 2 story home with her bedroom on the second floor and is hesitant about the thought of having to go up stairs. She has been tolerating foods without issue. Objective - Vital Signs/Intake & Output Vital Signs: Vital Signs x48h Pulse Resp BP Pulse Ox 05/28/21 08:00 94 15 89/56 L 98 05/28/21 05:00 90 14 116/63 98 05/28/21 04:00 88 18 116/63 98 Intake & Output: Intake & Output 05/25/21 05/26/21 05/27/21 05/28/21 23:59 23:59 23:59 23:59 Intake Total 177.917 311.083 Output Total 600 1050 400 Balance -422.083 -738.917 -400 - Objective General Appearance: positive: Other (sitting up comfortably in bed). negative: No acute distress, Alert, Anxious, Lethargic Eyes Bilateral: negative: Normal inspection Respiratory: negative: Chest non-tender, No respiratory distress, Breath sounds nml Cardiovascular: negative: Irregularly irregular Peripheral Pulses: 2+ Dorsalis pedis (R), 2+ Dorsalis pedis (L) Abdomen: negative: Non-tender, No distention, Tenderness Skin: positive: Warm, Dry. negative: Color nml, Cyanosis, Diaphoresis Extremities: negative: Non-tender, Nml appearance, No pedal edema Neurologic/Psychiatric: negative: Oriented x3, Mood/affect nml, Weakness, Sensory loss - Lab Results Fish Bones: 05/27/21 04:21 05/27/21 04:21 Other Labs: Lab Results x24hrs 05/28/21 05/28/21 Range/Units 04:23 04:23 VBG pH 7.465 H (7.31-7.41) Ionized Calcium 1.14 L (1.15-1.33) mmol/L Phosphorus 3.2 (2.5-4.6) mg/dL Magnesium 2.4 (1.7-2.8) mg/dL Assessment/Plan - Problem List (1) Rapid atrial fibrillation Impression: Pt has been transitioned to PO rate control with diltiazem and anticoagulation with apixaban. Apixaban was paused yesterday with intention of proceeding with thoracostomy today, but has been resumed as this is no longer indicated. Pts nurse reports that her heart rate is rising to 130-140 at times. Will add beta gavi for additional rate control. Pt will need echocardiogram to further i nvestigate the condition of her heart at a later date - tech is unavailable until estimated date 06/01/21. Discussed that she will need to continue rate control medications and anticoagulants indefinitely. (2) Acute pulmonary edema Assessment/Plan: CT angio revealed patchy bilateral round glass opacities that are suggestive of acute pulmonary edema with moderate bilateral pulmonary effusions. Pt is currently on 2L oxygen via nasal cannula and tolerating well with O2 sat of 98%. She would still prefer to stay until further improvement of oxygenation to avoid going home with supplemental oxygen. Given Lasix today to provide additional support to her lungs by taking some fluid off. Will continue to wean her off supplemental oxygen today. (3) Pleural effusion Assessment/Plan: CT angio showed moderate bilateral pleural effusions. Pt continued with hypoxia after removal of supplemental oxygen. Discussed therapeutic thoracostomy with radiologist and pts oncologist. Chest US was obtained to compare with CT angio and last the size for radiologist to evaluate. Radiologist does not feel that the effusions are large enough to warrant proceeding with the thoracostomy. Would prefer to monitor at home and track the improvement. If no improvement will discuss intervention at that time. She is in agreement with this plan. (4) Thyroid nodule Assessment/Plan: CT reveals a solitary R thyroid nodule. Recommend f/u with PCP. (5) Breast cancer Assessment/Plan: Pt will continue to f/u with oncologist Dr. Rueda for coordination of her chemotherapy treatment.
[2021-05-28] MEDS ORDERED: METOPROLOL 5 MG/5 ML VIAL IVP STA (15:48)
[2021-05-28] MEDS: METOPROLOL TARTRATE 25 MG TABLET PO SCH (17:07)
[2021-05-29] MEDS: SODIUM CHLORIDE FLUSH 0.9% 10 ML SYRINGE IVP SCH ×4 (00:12→23:39)
[2021-05-29 06:19] LABS: CALCIUM, IONIZED 1.12 mmol/L (1.15-1.33); VBG PH 7.464 (7.31-7.41)
[2021-05-29 06:26] LABS: MAGNESIUM 2.2 mg/dL (1.7-2.8); PHOSPHORUS 3.5 mg/dL (2.5-4.6)
[2021-05-29] MEDS: FUROSEMIDE 20 MG/2 ML VIAL IVP SCH (08:16)
[2021-05-29] MEDS: METOPROLOL TARTRATE 25 MG TABLET PO SCH ×2 (08:16→20:50)
[2021-05-29] MEDS: diltiaZEM CD 120 MG CAPSULE PO SCH (08:16)
[2021-05-29] MEDS: APIXABAN 5 MG TABLET PO SCH ×2 (08:16→20:49)
--- NOTE | 2021-05-29 11:03 | PROVIDER PROGRESS NOTE ---
Subjective - Prog Note Date Prog Note Date: 05/29/21 Prog Note Time: 11:01 - Subjective Pt reports feeling: Improved Subjective: Patient is up in her chair upon entry. She states that she feels slightly lightheaded since moving to her chair. Vitals checked and within normal limits. She ambulated to the bathroom without issue and returned to her bed. She denies any chest pain or difficulty breathing. Objective - Vital Signs/Intake & Output Vital Signs: Vital Signs x48h Temp Pulse Resp BP BP Pulse Ox 05/29/21 10:47 36.6 C 92 24 100/62 95 05/29/21 06:58 94 05/29/21 06:07 36.7 C 93 24 139/94 H 94 Intake & Output: Intake & Output 05/26/21 05/27/21 05/28/21 05/29/21 23:59 23:59 23:59 23:59 Intake Total 177.917 311.083 680 440 Output Total 600 1050 1225 Balance -422.083 -738.917 -545 440 - Objective General Appearance: positive: Other (patient is alert and in no signs of acute distress. Complains of lightheadedness upon moving to chair.) Eyes Bilateral: negative: Normal inspection Neck: negative: Nml inspection Respiratory: negative: Chest non-tender, No respiratory distress, Breath sounds nml Cardiovascular: positive: Irregularly irregular (continued afib) Abdomen: negative: Non-tender Extremities: negative: Non-tender, Nml appearance, No pedal edema Neurologic/Psychiatric: negative: Oriented x3, Motor nml, Sensation nml, Mood/affect nml - Lab Results Fish Bones: 05/27/21 04:21 05/27/21 04:21 Other Labs: Lab Results x24hrs 05/29/21 05/29/21 Range/Units 05:54 05:54 VBG pH 7.464 H (7.31-7.41) Ionized Calcium 1.12 L (1.15-1.33) mmol/L Phosphorus 3.5 (2.5-4.6) mg/dL Magnesium 2.2 (1.7-2.8) mg/dL Assessment/Plan - Problem List (1) Rapid atrial fibrillation Impression: Pt has been transitioned to PO rate control with diltiazem and anticoagulation with apixaban. Beta gavi was added yesterday for additional rate control. Pt will need echocardiogram to further investigate the condition of her heart at a later date - tech is unavailable until estimated date 06/01/21. Discussed that she will need to continue rate control medications and anticoagulants indefini tely. She expresses her understanding. Discussed the course of afib in detail today and the indications for rate control and anticoagulation. Discussed that occasional palpitations are normal with her condition. Pt expresses concern for undergoing her 6th chemo treatment next tuesday and discussed that her new management of afib should not impact this schedule. (2) Acute pulmonary edema Assessment/Plan: CT angio revealed patchy bilateral round glass opacities that are suggestive of acute pulmonary edema with moderate bilateral pulmonary effusions. Pt is currently on 1L oxygen via nasal cannula and tolerating well with O2 sat of 98%. She would still prefer to stay until further improvement of oxygenation to avoid going home with supplemental oxygen. Given Lasix to provide additional support to her lungs by taking some fluid off. Will continue to wean her off supplemental oxygen and plan a PT evaluation with walking and stairs while monitoring O2 to assess her readiness to be discharged. She expresses concern for going home to where she must walk upstairs to her bedroom. Will include stairs in her PT challenge to ensure readiness. (3) Pleural effusion Assessment/Plan: CT angio showed moderate bilateral pleural effusions. Pt continued with hypoxia after removal of supplemental oxygen. Discussed therapeutic thoracostomy with radiologist and pts oncologist. Chest US was obtained to compare with CT angio and last the size for radiologist to evaluate. Radiologist does not feel that the effusions are large enough to warrant proceeding with the thoracostomy. Would prefer to monitor at home and track the improvement. If no improvement will discuss intervention at that time. She is in agreement with this plan. (4) Thyroid nodule Assessment/Plan: CT reveals a solitary R thyroid nodule. Recommend f/u with PCP. (5) Breast cancer Assessment/Plan: Pt will continue to f/u with oncologist Dr. Rueda for coordination of her chemotherapy treatment.
[2021-05-30] MEDS ORDERED: FUROSEMIDE 40 MG TABLET PO SCH (09:00)
--- NOTE | 2021-05-30 09:26 | DISCHARGE SUMMARY ---
Discharge Summary Admit Date: 05/26/21 Discharge Date: 05/30/21 Discharging Provider: Tracey Fuchs MD Primary Care Provider: Tammy Burch Code Status: Attempt Resuscitation Condition at Discharge: Fair Discharge Disposition: Home, Self Care - DIAGNOSES Discharge Diagnoses with Status of Each Condition: 1. Atrial fibrillation with rapid ventricular response 2. Acute pulmonary edema 3. Pleural effusions 4. Hypoxia 5. Thyroid nodule 6. Metastatic breast cancer 7. Anxiety about health - HPI History of Present Illness: Pt is a 80 y.o female who presented to the ER via EMS after she had an episode of lightheadedness and heart palpitations yesterday. She states that "she felt like she was going to pass out." Her called 911. She has never had an episode like this in the past. She says in the past couple of days she noticed some mild swelling of her feet that has resolved. EMS arrived to find patient with severe respiratory distress, pulse ox as low as 66% room air, improved to no higher than 86% with NRB. EMS also notes DYAN as high as 160s bpm. Patient required immediate attention on arrival due to severe hypoxia. She has a history of ER+/AR-/HER2 amplified IDC and she states that she thought it was a side effect of her chemotherapy at first which she last received 05/14/21. Her chemo consits of Taxol/Herceptin/Perjeta. Scans showed a large right breast mass extending to the chest wall, supraclavicular region as well as right axillary region and osseous destruction is present with right ribs secondary to mass lesion as above.She denies any chest pain, current dyspnea, fever, vomiting, diaphoresis, confusion, or loss of sensation. She last had an echo 02/04/21 that shows mild mitral regurgitation and severe LA volume enlargement of 63 mL/m2. - Past Medical History Cardiovascular: reports: None Respiratory: reports: None Neuro: reports: None Endocrine/Autoimmune: reports: None GI: reports: None [employer]: reports: None : reports: None HEENT: reports: None Psych: reports: None Musculoskeletal: reports: None Derm: reports: None MRSA Hx?: No Other Past Medical History: breast cancer - Past Surgical History HEENT: reports: Cataracts - HOSPITAL COURSE Hospital Course: The patient was placed in observation due to acute congestive heart failure from atrial fibrillation. She was also found to have a pleural effusion. We did talk to oncology on-call for her group and they did recommend a thoracentesis to make sure she did not have progression of metastatic disease. However radiology looked at her films and ultrasound and felt that there was too little fluid to be a safe thoracentesis and as such we did not do a thoracentesis. We also do n ot have echocardiogram due to staffing shortages. She will need an echocardiogram in the outpatient setting. Our goal was diuresis for her CHF, anticoagulation and rate control. Once that was achieved, the patient was felt stable enough to return to home. At rest, her pulse rate will be 104 to less than 100. When she gets up and does things like go to the bathroom, she will go up to 140. At discharge temperature is 36.6. Heart rate varied between 89-140 depending if she was at rest or walking. Blood pressure 138/59. Respirations 20. 93% on room air. She is 5 feet 5 inches tall, 65 kg. A slender, anxious elderly female. Reportedly states that anxiety is getting the better of her and she feels safer in the hospital she does at home. Her takes care of her and we asked her if she felt safe enough to return to home under the care of her . She does state that he does very well for her, but she just feels better in the hospital. Neck is supple without JVD, lungs have diminished breath sounds at the bases, she has an irregularly irregular heart rate. The abdomen is soft, nont vinnie. No edema. We have asked her to please follow-up with her primary care provider for the new onset A. fib. Get an echocardiogram. Follow-up with oncology to decide if she is going to need a thoracentesis if there is no resolution of the pleural effusion. - ALLERGIES Allergies/Adverse Reactions: Allergies Allergy/AdvReac Type Severity Reaction Status Date / Time No Known Drug Allergies Allergy Verified 02/25/21 18:59 - MEDICATIONS Home Medications: Ambulatory Orders Medication Instructions Recorded Confirmed Lidocaine/Prilocain 2.5% Cream 5 applic TOP BID PRN #1 tu 02/09/21 05/27/21 [Emla 2.5% Cream] Ondansetron Odt [Zofran Odt] 4 mg TL Q6H PRN #30 tab 02/16/21 05/27/21 Silver Sulfadiazine Cream 0 applic TOP QD #25 gm 02/16/21 05/27/21 [Silvadene Cream] dexAMETHasone [Decadron] 8 mg PO UD #36 tablet 02/17/21 05/27/21 Walker [Ultra-Light Rollator] 1 each MC DAILY #1 each 05/29/21 Acetaminophen [Tylenol] 650 mg PO Q4HR PRN tablet 05/30/21 Apixaban [Eliquis] 5 mg PO BID #60 tablet 05/30/21 Furosemide [Lasix] 20 mg PO DAILY #30 tablet 05/30/21 Metoprolol Tartrate [Lopressor] 25 mg PO BID #60 tablet 05/30/21 diltiaZEM CD [Cardizem Cd] 180 mg PO DAILY #30 cap 05/30/21 - LABS Result Diagrams: 05/27/21 04:21 05/27/21 04:21
--- NOTE | 2021-05-30 09:29 | Discharge Plan ---
Discharge Plan Problem Reviewed?: Yes Disposition: Home, Self Care Condition: Fair Prescriptions: diltiaZEM CD [Cardizem Cd] 180 mg PO DAILY #30 cap Apixaban [Eliquis] 5 mg PO BID #60 tablet Furosemide [Lasix] 20 mg PO DAILY #30 tablet Metoprolol Tartrate [Lopressor] 25 mg PO BID #60 tablet Walker [Ultra-Light Rollator] 1 each MC DAILY #1 each Diet: Regular Activity Restrictions: Activity as Tolerated Shower Restrictions: No Driving Restrictions: Yes (no driving) Assistance Devices: Walker Instruction Topics: Apixaban oral tablets, Stroke Prevent Live W Atrial Fib, Atrial Fibrillation Health Concerns: You are currently being treated for breast cancer and for the last few days you have been getting more more short of breath. You came to the emergency room or we found you to have water on top of your lungs. The water on top of your lungs may be irritating your heart and giving you an irregularly irregular rhythm called atrial fibrillation. The treatment we gave you was to make you urinate to get rid of excess water in your body. And we gave you pills to slow down your heart rate. You also have to take a blood thinner to prevent blood clots in your heart from forming with this heart rate. We think that the irregular heart rate that was too fast gave you a little bit o f congestive heart failure and gave you the water on her lungs. But we could not do all of the testing on you since one of the technicians that does heart studies is sick right now. So we were unable to do a study called an echocardiogram. We also thought about doing an analysis of the fluid in the lungs. But the radiologist felt there was not enough fluid to warrant the risk of putting a needle in your chest to set things out. As such, we focused on slowing down your heart rate, and giving you a blood thinner. Plan of Treatment: You will be discharged to home and need to follow the instructions. 1. You will be started on 2 pills to slow down your heart rate. Please see your cancer doctor in follow-up. He needs to refer you to a upkeep mechanic for you to follow-up on getting the ultrasound of your heart (echocardiogram) and to follow-up on your heart rate control. 2. You will be started on a low-dose of a water pill to make you urinate every day. But we can overshoot the last and you need to make sure you get blood test for kidney function and potassium in a few days. I can order that for you and then your cancer doctor can look at those results. 3. You will be sent home on a new blood thinner. If you develop bloody stool, bloody noses, or blood in your urine, do not take your pill that day and notify your cancer doctor. 4. Your cancer doctor did ask us to remove fluid from your chest cavity that was on top of the lung by using a needle to go through your chest wall into your lung cavity. But there was not enough fluid for us to do that and the doctor who is going to do that advised us not to do it at this time. However, if you continue to have fluid on top of your lung, and the fluid gets worse, your cancer doctor may still send you to get an analysis of the fluid on top of your lung. Care Goals: Your goal is to get your heart rate under control. To prevent yourself from getting clots in your heart that that will give you stroke. Your goal is also to maintain therapy of your breast cancer to live a longer life. We did speak a long time about care goals. You really had not thought about wha t you would need down the road if you became more disabled. You and your should talk about care at home, hiring caregivers at home, help from family, and how you would make that situation happen. I would also respectfully suggest that you start discussing end-of-life issues. You are currently stable from your breast cancer. Hopefully can be controlled for a long time to give you a longer life. But if things turn the wrong way, you should have some plans already discussed between you and your . Assessment: Patient understands care goals. Has a high level of anxiety about going home. But she is saturating well, ambulating in the hallways, eating food, and her endorses that he can take good care of her. She has worked with physical therapy to practice walking up and down stairs and has done well with that. She is being sent home with a walker. No Smoking: If you smoke, Please STOP! Call for help. Follow-up with: Tammy Bautista MD [Primary Care Provider] -
[2021-05-30] MEDS: APIXABAN 5 MG TABLET PO SCH (10:20)
[2021-05-30] MEDS: METOPROLOL TARTRATE 25 MG TABLET PO SCH (10:21)
[2021-05-30] MEDS: diltiaZEM CD 120 MG CAPSULE PO SCH (10:21)
[2021-05-30] MEDS: SODIUM CHLORIDE FLUSH 0.9% 10 ML SYRINGE IVP SCH (10:22)
[2021-05-30 10:23] VITALS: BP 138/59
== END 2021-05-30 14:09 | disposition home or self-care (01) | DRG 308 ==
LOC: EDUNIT# → SUPCPDRO 22:44 → ED 22:44 → ICU 05-26 09:25 → OBSVTOIN 05-27 16:15 → MS2 05-28 15:57
PROVIDERS: ADMIT Specialist; ATTEND Specialist
DX: I48.91 Unspecified atrial fibrillation (principal); J81.0 Acute pulmonary edema; Z20.822 Contact with and (suspected) exposure to COVID-19; J90 Pleural effusion, not elsewhere classified; I50.9 Heart failure, unspecified; R09.02 Hypoxemia; E04.1 Nontoxic single thyroid nodule; C50.911 Malignant neoplasm of unspecified site of right female breast; F41.9 Anxiety disorder, unspecified
CPT/HCPCS: 36415; 71045; 71275; 76604; 80048; 80053; 81003; 82330; 83690; 83735; 83880; 84100; 84484; 85025; 85610; 85730; 87150; 87631; 93005; 94660; 94761; 96365; 96366; 96375; 96376; 97161; 97530; 99291; A9270; G0378; Q9967; 0202U; 81001; 87086

== ENCOUNTER 2021-06-17 10:03 | Outpatient (CLI) | payer MEDICARE, OTHER | END 2021-06-17 10:04 | disposition home or self-care (01) | LOC: DI 10:03 | PROVIDERS: ATTEND Internal Medicine Hematology & Oncology | DX: C50.911 Malignant neoplasm of unspecified site of right female breast (principal); Z79.899 Other long term (current) drug therapy; I48.91 Unspecified atrial fibrillation; I51.7 Cardiomegaly; I77.810 Thoracic aortic ectasia; I87.8 Other specified disorders of veins | CPT/HCPCS: 93306 ==

== ENCOUNTER 2021-06-26 12:03 | Inpatient (IN) | payer MEDICARE, OTHER ==
[2021-06-26] MEDS ORDERED: diltiaZEM INJ 5 MG/ML VIAL IVP STA ×2 (12:24→12:48)
[2021-06-26 12:33] LABS: BASOPHILS # (AUTO) 0.1 10^3/uL (0.0-0.1); BASOPHILS % (AUTO) 0.4 %; EOSINOPHILS % (AUTO) 0.2 %; HCT - HEMATOCRIT 33.4 % (37.0-47.0); HGB - HEMOGLOBIN 10.8 g/dL (12.0-16.0); LYMPHOCYTES # (AUTO) 0.8 10^3/uL (1.5-3.5); LYMPHOCYTES % (AUTO) 6.2 %; MEAN CORPUSCULAR HEMOGLOBIN 26.3 pg (27.0-31.0); MEAN CORPUSCULAR HGB CONC 32.3 g/dL (32.0-36.0); MEAN CORPUSCULAR VOLUME 81.3 fL (81.0-99.0); MONOCYTES # (AUTO) 1.1 10^3/uL (0.0-1.0); MONOCYTES % (AUTO) 8.2 %; NEUTROPHILS # (AUTO) 10.9 10^3/uL (1.5-6.6); NEUTROPHILS % (AUTO) 84.5 %; PLT - PLATELET COUNT 567 10^3/uL (130-450); RED BLOOD COUNT 4.11 10^6/uL (4.20-5.40); RED CELL DISTRIBUTION WIDTH 18.3 % (12.0-15.0); WHITE BLOOD COUNT 12.9 x10^3/uL (4.8-10.8)
[2021-06-26] MEDS ORDERED: FUROSEMIDE 40 MG/4 ML VIAL IVP STA (12:33)
--- NOTE | 2021-06-26 12:37 | ED Physician Documentation ---
History of Present Illness - Stated complaint Stated Complaint: AFIB/SOA - Chief complaint Chief Complaint: Cardiac - Additonal information Additional information: 80-year-old female was referred to the emergency department from the [facility] clinic for evaluation of dyspnea, A. fib with RVR and worsening lower extremity edema. She has a history of breast cancer and is being followed by heme-onc/[facility] clinic. She recently presented to the emergency department on 05/26/2021 with shortness of breath and dyspnea and found to have atrial fibrillation with acute pulmonary edema. She was admitted for medical management of such and started on beta-b lockers and diuretics as well as anticoagulation and discharged on 30 May. pt did undergo a diagnostic thoracentesis 06/19/2021 Today while in the [facility] clinic she was noted to be fairly dyspneic, tachypneic with JVD as well as worsening edema. The patient endorses shortness of air but she is not hypoxic. She states that her legs are about 2-3 times the size of normal. On presentation she presents with A. fib in a rate of approximately 140. Respiratory rate of 35. Room air sat 95. Generally tachypnea at about 35 to 40 breaths/min. She is however alert and oriented. Her blood pressure is preserved. Palpable pulses in all extremities. Review of Systems Constitutional: denies: Fever, Chills Cardiac: reports: Palpitations, Pedal edema. denies: Chest pain / pressure Respiratory: denies: Dyspnea, Cough GI: reports: Reviewed and negative : reports: Reviewed and negative Skin: reports: Reviewed and negative Musculoskeletal: reports: Reviewed and negative PD PAST MEDICAL HISTORY - Past Medical History Cardiovascular: None Respiratory: None Neuro: None Endocrine/Autoimmune: None GI: None CUP SETTER LOCKSTITCH: None : None HEENT: None Psych: None Musculoskeletal: None Derm: None - Past Surgical History Past Surgical History: No HEENT: Cataracts - Present Medications Home Medications: Ambulatory Orders Medication Instructions Recorded Confirmed Ondansetron Odt [Zofran Odt] 4 mg TL Q6H PRN #30 tab 02/16/21 06/19/21 Walker [Ultra-Light Rollator] 1 each MC DAILY #1 each 05/29/21 06/19/21 Acetaminophen [Tylenol] 650 mg PO Q4HR PRN tablet 05/30/21 06/19/21 Apixaban [Eliquis] 5 mg PO BID #60 tablet 05/30/21 06/19/21 Furosemide [Lasix] 20 mg PO DAILY #30 tablet 05/30/21 06/19/21 Metoprolol Tartrate [Lopressor] 25 mg PO BID #60 tablet 05/30/21 06/19/21 diltiaZEM CD [Cardizem Cd] 180 mg PO DAILY #30 cap 05/30/21 06/19/21 - Allergies Allergies/Adverse Reactions: Allergies Allergy/AdvReac Type Severity Reaction Status Date / Time No Known Drug Allergies Allergy Verified 06/26/21 12:18 - Social History Does the pt smoke?: No Smoking Status: Never smoker Does the pt drink ETOH?: No Does the pt have substance abuse?: No - Immunizations Immunizations are current?: Yes - POLST Patient has POLST: No POLST Status: Full Code PD ED PE EXPANDED - General General: Alert, Other (Thin elderly female with frail appearance) - Neck Neck: JVD present - Cardiac Cardiac: Tachy, Irregularly irregular, Murmur Present, Radial strong equal, Pedal strong equal, Cap refill < 2 sec - Respiratory Respiratory: Decreased breath sounds, Other (Scattered rails. Diminished breath sounds in the right lower posterior lung jefferson. Tachypnea with respiratory rate in the 30s. Saturations 95% room air) - Abdomen Abdomen: Normal Bowel sounds. No: Tender to palpation - Extremities Extremities: Right arm (Generalized swelling of the right arm unchanged from baseline.), Pedal edema bilateral (3-4+ pitting edema bilateral lower extremities). No: Tenderness - Neuro Neuro: Alert and Oriented X 3, CNII-XII intact - GCS Eye Opening: Spontaneous Motor: Obeys Commands Verbal: Oriented Total: 15 Results - Vitals Vitals: Vital Signs - 24 hr 06/26/21 06/26/21 06/26/21 12:16 12:18 12:32 Temperature 36.5 C Heart Rate 133 H 126 H 117 H Respiratory 22 28 H 35 H Rate Blood Pressure 122/109 H 122/104 H 138/103 H O2 Saturation 93 94 95 06/26/21 06/26/21 06/26/21 12:34 12:39 13:18 Temperature Heart Rate 111 H 103 H 121 H Respiratory 30 H 25 H 30 H Rate Blood Pressure 119/93 H 111/65 141/80 H O2 Saturation 90 L 93 95 06/26/21 06/26/21 06/26/21 14:00 14:30 15:00 Temperature Heart Rate 122 H 115 H 118 H Respiratory 22 22 Rate Blood Pressure 135/90 H 153/84 H 140/92 H O2 Saturation 94 94 96 06/26/21 15:02 Temperature Heart Rate 113 H Respiratory 13 Rate Blood Pressure 140/90 H O2 Saturation 95 Oxygen O2 Source Nasal cannula - EKG (time done) 1215 Rate: Rate (enter#) (128), Tachy Rhythm: Atrial fibrillation [place]: Other Intervals: No: Prolonged QT QRS: Poor R wave progression Ischemia: Non specific changes (minimal AMBER inferior leads) Compare to prior EKG: Unchanged from prior EKG Computer interpretation: Agree with computer - Labs Labs: Laboratory Tests 06/26/21 06/26/21 06/26/21 12:23 12:23 12:23 WBC 12.9 H RBC 4.11 L Hgb 10.8 L Hct 33.4 L MCV 81.3 MCH 26.3 L MCHC 32.3 RDW 18.3 H Plt Count 567 H MPV 10.0 Neut # (Auto) 10.9 H Lymph # (Auto) 0.8 L [place] # (Auto) 1.1 H Eos # (Auto) 0.0 Baso # (Auto) 0.1 Absolute Nucleated RBC 0.00 Nucleated RBC % 0.0 Sodium 133 L Potassium 4.6 Chloride 95 L Carbon Dioxide 28 Anion Gap 10.0 BUN 21 H Creatinine 0.8 Estimated GFR (MDRD) 69 L Glucose 150 H Calcium 9.4 Total Bilirubin 0.6 AST 21 ALT 26 Alkaline Phosphatase 34 L Troponin I High Sens 24.1 H* B-Natriuretic Peptide Total Protein 7.1 Albumin 3.3 Globulin 3.8 Albumin/Globulin Ratio 0.9 L Lipase 32 06/26/21 12:23 WBC RBC Hgb Hct MCV MCH MCHC RDW Plt Count MPV Neut # (Auto) Lymph # (Auto) [place] # (Auto) Eos # (Auto) Baso # (Auto) Absolute Nucleated RBC Nucleated RBC % Sodium Potassium Chloride Carbon Dioxide Anion Gap BUN Creatinine Estimated GFR (MDRD) Glucose Calcium Total Bilirubin AST ALT Alkaline Phosphatase Troponin I High Sens B-Natriuretic Peptide 225 H Total Protein Albumin Globulin Albumin/Globulin Ratio Lipase - Rads (name of study) CXR Radiology: Final report received (Slightly enlarged bilateral pleural effusions) PD MEDICAL DECISION MAKING - ED course Complexity details: reviewed old records, reviewed results, re-evaluated patient, considered differential, d/w patient ED course: 80-year-old female presents to the emergency department for evaluation of dyspnea and A. fib with RVR. She is known to have breast cancer as well as a new diagnosis of A. fib and congestive heart failure. She recently underwent a diagnostic paracentesis on 19 June. She is anticoagulated on Eliquis. She presented to the [facility] this a.m. for a hematology oncology consult with regards to her breast cancer but they found her profoundly dyspneic and tachycardic thus they referred her to the emergency department. On presentation she had A. fib with RVR rate of about 140. She was not hypoxic but was rather tachypneic with respiratory rate in the 30s and 40s. She was initially given 10 mg of diltiazem but that did not reduce her heart rate and it was then repeated. Her heart rate slowed to about 115. She was also given an additional 40 mg of Lasix given the findings of fairly significant pleural effusions bilaterally. In review of her medications she is on rather low doses of oral metoprolol as well as Lasix. Initially our goal was to try and get symptom control of her heart rate by getting additional beta-gavi but we have failed to get adequate control of her symptoms. Minimal exertion produces profound dyspnea but again no hypoxia. Her chest x-ray does show worsening pleural effusions. She has a minimal BNP elevation. Trop is just mildly elevated. likely demand ischemia given lack of ischemic changes on EKG. My suspicion for a PE is rather low despite her history of cancer given the lack of hypoxia and the fact that she is anticoagulated. A saddle thrombus would be exceedingly unlikely. Given outinability to get adequate control of her heart rate the worsening pleural effusions she was presented for admission to Dr. Fuchs who graciously agrees to admit her. Patient is in agreement with the planned observation admission. Res PCR is pending Departure - Departure Disposition: ED Place in Observation Clinical Impression: Congestive heart failure Qualifiers: Heart failure type: other Qualified Code(s): I50.9 - Heart failure, unspecified
[2021-06-26 12:45] LABS: ALBUMIN 3.3 g/dL (3.2-5.5); ALBUMIN/GLOBULIN RATIO 0.9 (1.0-2.2); BILIRUBIN,TOTAL 0.6 mg/dL (0.2-1.0); CALCIUM 9.4 mg/dL (8.5-10.3); CREATININE 0.8 mg/dL (0.4-1.0); POTASSIUM 4.6 mmol/L (3.5-5.0); TOTAL PROTEIN 7.1 g/dL (6.7-8.2)
--- NOTE | 2021-06-26 12:54 | XRAY Report ---
PROCEDURE: Chest 1 View X-Ray INDICATIONS: Chest Pain TECHNIQUE: One view of the chest was acquired. COMPARISON: June 19, 2021 FINDINGS: SUPPORT DEVICES: Redemonstrated CT injectable left george catheter. LUNGS/PLEURA: Blunting of the costophrenic sulci, slightly more prominent compared to the prior study , concerning for enlarging pleural effusions. No pneumothorax. MEDIASTINUM: The cardiac silhouette is partially obscured. BONES/SOFT TISSUES: No acute abnormality. IMPRESSION: 1.Slightly enlarged bilateral pleural effusions. Reviewed by: Nicolás Mcmahon MD on 06/26/2021 12:53 PM [facility] Approved by: Nicolás Mcmahon MD on 06/26/2021 12:53 PM PST Station ID: [id number]
[2021-06-26] MEDS ORDERED: METOPROLOL TARTRATE 50 MG TABLET PO STA (13:19)
[2021-06-26] MEDS ORDERED: HYDROcod/ACETAM 5/325 MG TABLET PO STA (13:47)
[2021-06-26] MEDS ORDERED: SULFAMETH/TRIMETH DS 800/160 MG TABLET PO STA (13:48)
[2021-06-26] MEDS ORDERED: cephALEXin 250 MG CAPSULE PO STA (13:48)
[2021-06-26] MEDS ORDERED: oxyCODONE 5 MG TABLET PO PRN (15:01)
[2021-06-26] MEDS ORDERED: ONDANSETRON 4 MG/2 ML VIAL IVP PRN (15:01)
[2021-06-26] MEDS ORDERED: ACETAMINOPHEN 325 MG TABLET PO PRN (15:01)
--- NOTE | 2021-06-26 15:12 | HISTORY & PHYSICAL EXAMINATION ---
Chief Complaint - Chief Complaint Chief Complaint: shortness of breath History of Present Illness - Admitted From Admitted From:: medical floor - History Obtained From Records Reviewed: [facility], ER notes History obtained from: pt Exam Limitations: no - History of Present Illness HPI Comment/Other: This is a 80-year-old female with a past medical history significant for hx of Atrial fibrillation with rapid ventricular response, Metastatic breast cancer, pleural effusion with a diagnostic thoracentesis 06/19/2021, anxiety, Thyroid nodule, who was referred to the emergency department from the [facility] for evaluation of A. fib with RVR, shortness of breath and worsening lower extremity edema. Pt report she followup with her route oncologist appointment at [facility]. Her oncologist saw her and "do not like" her bilateral lower extremity edema, concern of her fast heart beats, and shortness of breath. she was sent to ER for evaluation and treatment. In ER, pt is afrible, her HR initially was 133, pt's O2 sat is 96% on 2 liter of O2. pt report she did not take O2 at home. CXR reveals slightly enlarged bilateral pleural effusions. pt denies chest pain, fever, chill, cough, wheezing. 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 Her mother at age 80 unknown causes. Living Situation: With spouse/s.o. Social History Notes: 2 children - both healthy. She denies history of cigarette smoking, alcohol or drug use - Substance History Use: Uses substance without health or social issues: NONE - POLST Patient has POLST: No POLST Status: Full Code Meds/Allgy - Home Medications Home Medications: Ambulatory Orders Medication Instructions Recorded Confirmed Ondansetron Odt [Zofran Odt] 4 mg TL Q6H PRN #30 tab 02/16/21 06/19/21 Walker [Ultra-Light Rollator] 1 each MC DAILY #1 each 05/29/21 06/19/21 Acetaminophen [Tylenol] 650 mg PO Q4HR PRN tablet 05/30/21 06/19/21 Apixaban [Eliquis] 5 mg PO BID #60 tablet 05/30/21 06/19/21 Furosemide [Lasix] 20 mg PO DAILY #30 tablet 05/30/21 06/19/21 Metoprolol Tartrate [Lopressor] 25 mg PO BID #60 tablet 05/30/21 06/19/21 diltiaZEM CD [Cardizem Cd] 180 mg PO DAILY #30 cap 05/30/21 06/19/21 - Allergies Allergies/Adverse Reactions: Allergies Allergy/AdvReac Type Severity Reaction Status Date / Time No Known Drug Allergies Allergy Verified 06/26/21 12:18 Review of Systems - Constitutional Constitutional: denies: Fever, Chills - Cardiovascular Cariovascular: reports: Exertional dyspnea, Decr. exercise tolerance. denies: Irregular heart rate, Palpitations, Chest pain - Respiratory Respiratory: reports: SOB with exertion. denies: Cough, Sputum production, Wheezing - Gastrointestinal Gastrointestinal: denies: Abdominal pain, Diarrhea, Nausea, Vomiting - Neurological Neurological: denies: Focal weakness, Headache, Numbness, Seizures, Slurred speech Exam - Vital Signs Vital Signs: Vital Signs x48h Temp Pulse Resp BP Pulse Ox 06/26/21 15:02 113 H 13 140/90 H 95 06/26/21 13:18 121 H 30 H 141/80 H 95 06/26/21 12:39 103 H 25 H 111/65 93 06/26/21 12:34 111 H 30 H 119/93 H 90 L 06/26/21 12:32 117 H 35 H 138/103 H 95 06/26/21 12:18 126 H 28 H 122/104 H 94 06/26/21 12:16 36.5 C 133 H 22 122/109 H 93 - Physical Exam General Appearance: positive: No acute distress, Alert. negative: Lethargic Eyes Bilateral: positive: Normal inspection, No lid inflammation ENT: positive: ENT inspection nml, No signs of dehydration. negative: Purulent nasal drainage Neck: positive: Nml inspection, Trachea midline. negative: Tracheal deviation Respiratory: positive: Chest non-tender, No respiratory distress. negative: Wheezes Cardiovascular: positive: Irregularly irregular, Tachycardia. negative: Bradycardia, Systolic murmur, Diastolic murmur Peripheral Pulses: positive: 2+ Abdomen: positive: Non-tender, Nml bowel sounds, No distention Back: positive: Nml inspection Skin: positive: Warm, Dry, Other (scar tissue and mild erythema at right mastectomy site without acute infection) Extremities: positive: Non-tender, Pedal edema. negative: Calf tenderness Neurologic/Psychiatric: positive: Oriented x3, Motor nml, Sensation nml. negative: Weakness, Sensory loss, Facial droop, Slurred/abnml speech, Depressed mood/affect Conclusion/Plan - Problem List (1) Atrial fibrillation with rapid ventricular response Conclusion/Plan: pt present Atrial fibrillation with rapid ventricular response. ER was treated with IV cardizem and PO metoprolol, but pt still present HR at arrange 100-120. pt denies chest pain, palpitation. troponin is 24, EKG reveals Atrial fibril lation with rapid ventricular response. pt is Asymptomatic for her a fibrillation with rapid ventricular response. will resume pt's home Eliquis, add Cardizem 60 Q6H, add IV of metoprolol, resume her home meds after confirmed, continue tele monitor. pt's ECHO study about one week ago reveal normal arrange EF, RVSP 44 mmHG, mild abnormal right heart pressure, no aortic stenosis. we will not report ECHO study. 2. Hypoxia pt Has 96% oxygen saturation on 2 L oxygen. Patient has a history of persistent Pleural effusion, And a history of pulmonary nodules and Metastatic breast cancer. Chest x-ray on today show slightly enlarge pleural effusion. we will order US of chest to see the size of pleural effusion, pt had thoracentesis before, check PT/INR, IV of Lasix, Supplement of oxygen as needed 3. bilateral lower extremity edema pt present bilateral lower extremity edema, recently ECHO reveal preserved EF with mild abnormal right heart pression and RVSP 44 mmHG, more concern pt's diastolic heart failure. IV of lasix, lab and vital monitor 4. Pleural effusions as the above, will have US of chest to figure out size of pleural effusion, then may consult with IR for thoracentesis as clinic indicated. continue IV of Lasix. 5. Metastatic breast cancer pt has right mastectomy, pt report her chemotherapy is holding now, pt may followup with her oncologist as out-pt. - Lab Results Fish Bones: 06/26/21 12:23 06/26/21 12:23 Core Measures - Anticipated LOS I expect patient to be DC'd or transferred within 96 hours.: Yes - DVT/VTE - Prophylaxis VTE/DVT Device ordered at admit?: Yes VTE/DVT Prophylaxis med ordered at admit?: Yes
[2021-06-26 16:26] LABS: B. PARAPERTUSSIS- RESP PCR PAN NOT DETECTED; B. PERTUSSIS- RESP PCR PANEL NOT DETECTED; C. PNEUMONIAE- RESP PCR PANEL NOT DETECTED; CORONAVIRUS 229E-RESP PCR NOT DETECTED; CORONAVIRUS HKU1-RESP PCR NOT DETECTED; CORONAVIRUS NL63-RESP PCR NOT DETECTED; CORONAVIRUS OC43-RESP PCR NOT DETECTED; HUMAN METAPNEUMOVIRUS NOT DETECTED; INFLUENZA A- RESP PCR PANEL NOT DETECTED; INFLUENZA B - RESP PCR PANEL NOT DETECTED; M. PNEUMONIAE- RESP PCR PANEL NOT DETECTED; PARAINFLUENZA VIRUS 1 NOT DETECTED; PARAINFLUENZA VIRUS 2 NOT DETECTED; PARAINFLUENZA VIRUS 3 NOT DETECTED; PARAINFLUENZA VIRUS 4 NOT DETECTED; RHINOVIRUS/ENTEROVIRUS NOT DETECTED; RSV- RESP PCR PANEL NOT DETECTED; SARS-CoV-2 -RESP PCR PANEL NOT DETECTED
[2021-06-26 17:49] LABS: INR 1.4 (0.8-1.2); PT - PROTHROMBIN TIME 15.4 secs (9.9-12.6)
[2021-06-26] MEDS: METOPROLOL 5 MG/5 ML VIAL IVP PRN (19:09)
--- NOTE | 2021-06-26 19:13 | Ultrasound Report ---
PROCEDURE: Chest INDICATIONS: pleural effusion TECHNIQUE: Real-time scanning was performed of the chest. COMPARISON: June 19, 2021. FINDINGS: Right pleural effusion measures 11.2 x 9.5 x 7.3 cm. Left pleural effusion measures 8.4 x 5.5 x 9.4 cm IMPRESSION: 1.Bilateral pleural effusions, greatest on the right as detailed above. Reviewed by: Nicolás Mcmahon MD on 06/26/2021 7:12 PM PST Approved by: Nicolás Mcmahon MD on 06/26/2021 7:12 PM PST Station ID: [id number]
[2021-06-26] MEDS: SODIUM CHLORIDE FLUSH 0.9% 10 ML SYRINGE IVP SCH (19:14)
[2021-06-26] MEDS ORDERED: APIXABAN 5 MG TABLET PO SCH (21:00)
[2021-06-27] MEDS: SODIUM CHLORIDE FLUSH 0.9% 10 ML SYRINGE IVP SCH ×4 (00:36→23:55)
[2021-06-27] MEDS: SODIUM CHLORIDE FLUSH 0.9% 10 ML SYRINGE IVP PRN (05:22)
[2021-06-27] MEDS: FUROSEMIDE 20 MG/2 ML VIAL IVP SCH ×2 (05:22→13:55)
[2021-06-27 05:58] LABS: BASOPHILS # (AUTO) 0.1 10^3/uL (0.0-0.1); BASOPHILS % (AUTO) 0.6 %; EOSINOPHILS # (AUTO) 0.1 10^3/uL (0.0-0.7); EOSINOPHILS % (AUTO) 1.3 %; HCT - HEMATOCRIT 28.6 % (37.0-47.0); HGB - HEMOGLOBIN 9.3 g/dL (12.0-16.0); LYMPHOCYTES # (AUTO) 1.4 10^3/uL (1.5-3.5); LYMPHOCYTES % (AUTO) 13.1 %; MEAN CORPUSCULAR HEMOGLOBIN 26.1 pg (27.0-31.0); MEAN CORPUSCULAR HGB CONC 32.5 g/dL (32.0-36.0); MEAN CORPUSCULAR VOLUME 80.1 fL (81.0-99.0); MEAN PLATELET VOLUME 10.5 fL (7.9-10.8); MONOCYTES # (AUTO) 0.9 10^3/uL (0.0-1.0); MONOCYTES % (AUTO) 8.1 %; NEUTROPHILS # (AUTO) 8.3 10^3/uL (1.5-6.6); NEUTROPHILS % (AUTO) 76.4 %; PLT - PLATELET COUNT 504 10^3/uL (130-450); RED BLOOD COUNT 3.57 10^6/uL (4.20-5.40); RED CELL DISTRIBUTION WIDTH 18.2 % (12.0-15.0); WHITE BLOOD COUNT 10.8 x10^3/uL (4.8-10.8)
[2021-06-27] MEDS ORDERED: FUROSEMIDE 20 MG/2 ML VIAL IVP SCH (06:00)
[2021-06-27 06:14] LABS: CALCIUM 8.9 mg/dL (8.5-10.3); CREATININE 0.8 mg/dL (0.4-1.0); POTASSIUM 3.7 mmol/L (3.5-5.0)
[2021-06-27] MEDS ORDERED: ENOXAPARIN 40 MG/0.4 ML SYRINGE SUBQ SCH (09:00)
[2021-06-27] MEDS ORDERED: APIXABAN 5 MG TABLET PO SCH (09:00)
--- NOTE | 2021-06-27 11:36 | PHARMACY PROGRESS NOTE ---
- Best Possible Medication History Admit Date and Time: 06/26/21 1501 Processed by: Pharmacy Medication History completed: Yes Secondary Source(s): Physician records, Pharmacy records, Insurance records, Previous admit records As the person ultimately responsible for medication therapy, providers are able to order a medication from an existing home medication list in [facility] via the "Reconcile Routine" prior to Confirmation of that medication by academic support coordinator. Such practice is discouraged except when the physician, in their clinical judgment, deems that a medical need exists for a medication without regard to previous use.
--- NOTE | 2021-06-27 17:23 | PROVIDER PROGRESS NOTE ---
Subjective - Prog Note Date Prog Note Date: 06/27/21 Prog Note Time: 05:20 - Subjective Pt reports feeling: Improved Subjective: Patient reports that she is feeling better. Reports that she is still short of breath but it is improving. States that she is happy to see that the swelling in her legs has gone down. Concerned about fluid build up in lungs and what could be causing it. Current Medications - Current Medications Current Medications: Active Medications Acetaminophen (Acetaminophen 325 Mg Tablet) 650 mg PO Q4HR PRN PRN Reason: Pain 1 to 4 Diltiazem HCl (Diltiazem 60 Mg Tablet) 60 mg PO Q6HR [facility] Enoxaparin Sodium (Enoxaparin 60 Mg/0.6 Ml Syringe) 60 mg SUBQ BID [facility] Furosemide (Furosemide 20 Mg/2 Ml Vial) 40 mg IVP BIDDIURETIC [facility] Metoprolol Tartrate (Metoprolol 5 Mg/5 Ml Vial) 5 mg IVP Q6H PRN PRN Reason: Tachycardia Multi-Ingredient Ointment (Zinc Oxide 20% Oint 30 Gm Tube) 1 applic TOP PRN PRN PRN Reason: Skin Care Ondansetron HCl (Ondansetron 4 Mg/2 Ml Vial) 4 mg IVP Q6HR PRN PRN Reason: Nausea / Vomiting Oxycodone HCl (Oxycodone 5 Mg Tablet) 5 mg PO Q4HR PRN PRN Reason: Pain 5 to 7 Sodium Chloride (Sodium Chloride Flush 0.9% 10 Ml Syringe) 10 ml IVP PRN PRN PRN Reason: NEEDED PER PROVIDER ORDERS Sodium Chloride (Sodium Chloride Flush 0.9% 10 Ml Syringe) 10 ml IVP 0100,0900, 1700 [facility] Metoprolol Tartrate [Lopressor] 12.5 mg PO BID 06/27/21 Objective - Vital Signs/Intake & Output Vital Signs: Vital Signs x48h Temp Pulse Resp BP BP Pulse Ox 06/27/21 15:45 36.7 C 93 18 106/58 L 96 06/27/21 13:54 127/62 06/27/21 13:00 36.6 C 91 20 127/62 96 Intake & Output: Intake & Output 06/24/21 06/25/21 06/26/21 06/27/21 23:59 23:59 23:59 23:59 Intake Total 320 610 Output Total 400 1025 Balance -80 -415 - Objective General Appearance: positive: No acute distress Eyes Bilateral: positive: Normal inspection ENT: positive: ENT inspection nml Neck: positive: Nml inspection, No JVD, Trachea midline Respiratory: positive: Chest non-tender, Other (Lung sounds diminished in bilateral bases. Tachypnea noted, 30 breaths/min). negative: Wheezes, Rales, Rhonchi Cardiovascular: positive: Irregularly irregular, Tachycardia. negative: Systolic murmur, Diastolic murmur Peripheral Pulses: 2+ Radial (R), 2+ Radial (L), 2+ Dorsalis pedis (R), 2+ Do rsalis pedis (L) Abdomen: positive: Non-tender Back: positive: Nml inspection Skin: positive: Color nml Extremities: positive: Non-tender, Full ROM, Pedal edema (mild, non-pitting) Neurologic/Psychiatric: positive: Oriented x3, Motor nml, Sensation nml, Mood/affect nml - Lab Results Fish Bones: 06/28/21 04:45 06/28/21 04:45 Other Labs: Lab Results x24hrs 06/27/21 06/27/21 06/26/21 Range/Units 04:49 04:49 20:00 WBC 10.8 (4.8-10.8) x10^3/uL RBC 3.57 L (4.20-5.40) 10^6/uL Hgb 9.3 L (12.0-16.0) g/dL Hct 28.6 L (37.0-47.0) % MCV 80.1 L (81.0-99.0) fL MCH 26.1 L (27.0-31.0) pg MCHC 32.5 (32.0-36.0) g/dL RDW 18.2 H (12.0-15.0) % Plt Count 504 H (130-450) 10^3/uL MPV 10.5 (7.9-10.8) fL Neut # (Auto) 8.3 H (1.5-6.6) 10^3/uL Lymph # (Auto) 1.4 L (1.5-3.5) 10^3/uL [place] # (Auto) 0.9 (0.0-1.0) 10^3/uL Eos # (Auto) 0.1 (0.0-0.7) 10^3/uL Baso # (Auto) 0.1 (0.0-0.1) 10^3/uL Absolute Nucleated RBC 0.00 x10^3/uL Nucleated RBC % 0.0 /100WBC PT (9.9-12.6) secs INR (0.8-1.2) Sodium 136 (135-145) mmol/L Potassium 3.7 (3.5-5.0) mmol/L Chloride 98 L (101-111) mmol/L Carbon Dioxide 28 (21-32) mmol/L Anion Gap 10.0 (6-13) BUN 21 H (6-20) mg/dL Creatinine 0.8 (0.4-1.0) mg/dL Estimated GFR (MDRD) 69 L (>89) Glucose 125 H (70-100) mg/dL Calcium 8.9 (8.5-10.3) mg/dL Troponin I High Sens 18.7 H* (2.3-14.8) ng/L 06/26/21 Range/Units 12:23 WBC (4.8-10.8) x10^3/uL RBC (4.20-5.40) 10^6/uL Hgb (12.0-16.0) g/dL Hct (37.0-47.0) % MCV (81.0-99.0) fL MCH (27.0-31.0) pg MCHC (32.0-36.0) g/dL RDW (12.0-15.0) % Plt Count (130-450) 10^3/uL MPV (7.9-10.8) fL Neut # (Auto) (1.5-6.6) 10^3/uL Lymph # (Auto) (1.5-3.5) 10^3/uL [place] # (Auto) (0.0-1.0) 10^3/uL Eos # (Auto) (0.0-0.7) 10^3/uL Baso # (Auto) (0.0-0.1) 10^3/uL Absolute Nucleated RBC x10^3/uL Nucleated RBC % /100WBC PT 15.4 H (9.9-12.6) secs INR 1.4 H (0.8-1.2) Sodium (135-145) mmol/L Potassium (3.5-5.0) mmol/L Chloride (101-111) mmol/L Carbon Dioxide (21-32) mmol/L Anion Gap (6-13) BUN (6-20) mg/dL Creatinine (0.4-1.0) mg/dL Estimated GFR (MDRD) (>89) Glucose (70-100) mg/dL Calcium (8.5-10.3) mg/dL Troponin I High Sens (2.3-14.8) ng/L - Diagnostic Imaging Diagnostic Imaging Results: positive: See rad report (pleural effusions in bila teral lungs) ABX Reporting Has patient been on IV antibiotics over the past 48 hours?: No Sepsis Event Note (H) - Evaluation Current Stage of Sepsis: Ruled out Assessment/Plan - Problem List (1) Pleural effusion Impression: Ultrasound shows large, bilateral pleural effusion. Plan for thoracentesis when resources are available, likely Tuesday. Patient currently stable at 96% on 2 L O2 nasal cannula. Continue lasix and O2 therapy by nasal cannula as needed. (2) Atrial fibrillation with rapid ventricular response Impression: HR today 98 BPM. Patient taking Lovanox, metoprolol and cardizem. Also using sequential compression devices in bed. Continue tele monitoring. ECHO study about one week ago reveal normal arrange EF, RVSP 44 mmHG, mild abnormal right heart pressure, no aortic stenosis. we will not report ECHO study. Inpatient (3) Breast mass, right Impression: Right mastectomy, follow up with oncologist outpatient (4) Lower extremity edema Impression: Edema is improving. Plan to continue lasix.
[2021-06-27] MEDS: ENOXAPARIN 60 MG/0.6 ML SYRINGE SUBQ SCH (20:38)
[2021-06-27] MEDS: METOPROLOL 5 MG/5 ML VIAL IVP PRN (21:00)
[2021-06-28] MEDS ORDERED: ZINC OXIDE 20% OINT 30 GM TUBE TOP PRN (02:52)
[2021-06-28] MEDS: FUROSEMIDE 20 MG/2 ML VIAL IVP SCH ×2 (05:41→13:00)
[2021-06-28] MEDS: SODIUM CHLORIDE FLUSH 0.9% 10 ML SYRINGE IVP PRN (05:43)
[2021-06-28 05:55] LABS: BASOPHILS # (AUTO) 0.1 10^3/uL (0.0-0.1); BASOPHILS % (AUTO) 0.5 %; EOSINOPHILS # (AUTO) 0.2 10^3/uL (0.0-0.7); EOSINOPHILS % (AUTO) 1.5 %; HCT - HEMATOCRIT 32.1 % (37.0-47.0); HGB - HEMOGLOBIN 10.4 g/dL (12.0-16.0); LYMPHOCYTES # (AUTO) 1.8 10^3/uL (1.5-3.5); LYMPHOCYTES % (AUTO) 17.4 %; MEAN CORPUSCULAR HEMOGLOBIN 25.7 pg (27.0-31.0); MEAN CORPUSCULAR HGB CONC 32.4 g/dL (32.0-36.0); MEAN CORPUSCULAR VOLUME 79.5 fL (81.0-99.0); MEAN PLATELET VOLUME 10.6 fL (7.9-10.8); MONOCYTES # (AUTO) 0.9 10^3/uL (0.0-1.0); MONOCYTES % (AUTO) 8.5 %; NEUTROPHILS # (AUTO) 7.2 10^3/uL (1.5-6.6); NEUTROPHILS % (AUTO) 71.5 %; PLT - PLATELET COUNT 609 10^3/uL (130-450); RED BLOOD COUNT 4.04 10^6/uL (4.20-5.40); RED CELL DISTRIBUTION WIDTH 18.1 % (12.0-15.0)
[2021-06-28 06:05] LABS: CALCIUM 9.1 mg/dL (8.5-10.3); CREATININE 0.8 mg/dL (0.4-1.0); POTASSIUM 3.5 mmol/L (3.5-5.0)
[2021-06-28] MEDS: ENOXAPARIN 60 MG/0.6 ML SYRINGE SUBQ SCH ×2 (09:31→19:00)
[2021-06-28] MEDS: SODIUM CHLORIDE FLUSH 0.9% 10 ML SYRINGE IVP SCH ×3 (12:52→23:47)
--- NOTE | 2021-06-28 16:30 | PROVIDER PROGRESS NOTE ---
Subjective - Prog Note Date Prog Note Date: 06/28/21 Prog Note Time: 15:00 - Subjective Pt reports feeling: Improved Subjective: Patient states that she is feeling well. Believes that her breathing has improved. Reports that she was able to have a bowel movement today and has been out of bed and moving around often due to frequent urination from Lasix. Amenable to plan for thoacentesis tomorrow. Current Medications - Current Medications Current Medications: Active Medications Acetaminophen (Acetaminophen 325 Mg Tablet) 650 mg PO Q4HR PRN PRN Reason: Pain 1 to 4 Diltiazem HCl (Diltiazem 60 Mg Tablet) 60 mg PO Q6HR [facility] Last Admin: 06/28/21 12:51 Dose: 60 mg Enoxaparin Sodium (Enoxaparin 60 Mg/0.6 Ml Syringe) 60 mg SUBQ BID [facility] Last Admin: 06/28/21 09:31 Dose: 60 mg Furosemide (Furosemide 20 Mg/2 Ml Vial) 40 mg IVP BIDDIURETIC [facility] Last Admin: 06/28/21 13:00 Dose: 40 mg Metoprolol Tartrate (Metoprolol 5 Mg/5 Ml Vial) 5 mg IVP Q6H PRN PRN Reason: Tachycardia Last Admin: 06/27/21 21:00 Dose: 5 mg Multi-Ingredient Ointment (Zinc Oxide 20% Oint 30 Gm Tube) 1 applic TOP PRN PRN PRN Reason: Skin Care Ondansetron HCl (Ondansetron 4 Mg/2 Ml Vial) 4 mg IVP Q6HR PRN PRN Reason: Nausea / Vomiting Oxycodone HCl (Oxycodone 5 Mg Tablet) 5 mg PO Q4HR PRN PRN Reason: Pain 5 to 7 Sodium Chloride (Sodium Chloride Flush 0.9% 10 Ml Syringe) 10 ml IVP PRN PRN PRN Reason: NEEDED PER PROVIDER ORDERS Last Admin: 06/28/21 05:43 Dose: 10 ml Sodium Chloride (Sodium Chloride Flush 0.9% 10 Ml Syringe) 10 ml IVP 0100,0900,1700 [facility] Last Admin: 06/28/21 12:52 Dose: 10 ml Metoprolol Tartrate [Lopressor] 12.5 mg PO BID 06/27/21 Objective - Vital Signs/Intake & Output Reviewed Vital Signs: Yes Vital Signs: Vital Signs x48h Temp Pulse Pulse Resp BP BP Pulse Ox 06/28/21 15:51 36.8 C 108 H 22 124/62 97 06/28/21 12:54 36.6 C 98 19 106/44 L 99 06/28/21 12:51 106/44 L Intake & Output: Intake & Output 06/25/21 06/26/21 06/27/21 06/28/21 23:59 23:59 23:59 23:59 Intake Total 320 1230 470 Output Total 400 1275 1470 Balance -80 -45 -1000 - Objective General Appearance: positive: Alert, Mild distress, Other (She is tachypnic and becomes short of breath when talking.) Eyes Bilateral: positive: Normal inspection, PERRL, EOMI ENT: positive: No signs of dehydration Neck: positive: Nml inspection, No JVD Respiratory: positive: Chest non-tender, Other (Diminished breath sounds in lower lobes bilaterally. Tachypnic) Cardiovascular: positive: Regular rate & rhythm, No murmur, No gallop, Tachycardia Abdomen: positive: Non-tender Back: positive: Nml inspection Skin: positive: Color nml Extremities: positive: Non-tender, Full ROM, Nml appearance, No pedal edema Neurologic/Psychiatric: positive: Oriented x3, CN's nml (2-12), Motor nml, Sens ation nml, Mood/affect nml - Lab Results Fish Bones: 06/29/21 04:50 06/29/21 04:50 Other Labs: Lab Results x24hrs 06/28/21 06/28/21 Range/Units 04:45 04:45 WBC 10.0 (4.8-10.8) x10^3/uL RBC 4.04 L (4.20-5.40) 10^6/uL Hgb 10.4 L (12.0-16.0) g/dL Hct 32.1 L (37.0-47.0) % MCV 79.5 L (81.0-99.0) fL MCH 25.7 L (27.0-31.0) pg MCHC 32.4 (32.0-36.0) g/dL RDW 18.1 H (12.0-15.0) % Plt Count 609 H (130-450) 10^3/uL MPV 10.6 (7.9-10.8) fL Neut # (Auto) 7.2 H (1.5-6.6) 10^3/uL Lymph # (Auto) 1.8 (1.5-3.5) 10^3/uL [place] # (Auto) 0.9 (0.0-1.0) 10^3/uL Eos # (Auto) 0.2 (0.0-0.7) 10^3/uL Baso # (Auto) 0.1 (0.0-0.1) 10^3/uL Absolute Nucleated RBC 0.00 x10^3/uL Nucleated RBC % 0.0 /100WBC Sodium 135 (135-145) mmol/L Potassium 3.5 (3.5-5.0) mmol/L Chloride 95 L (101-111) mmol/L Carbon Dioxide 29 (21-32) mmol/L Anion Gap 11.0 (6-13) BUN 22 H (6-20) mg/dL Creatinine 0.8 (0.4-1.0) mg/dL Estimated GFR (MDRD) 69 L (>89) Glucose 121 H (70-100) mg/dL Calcium 9.1 (8.5-10.3) mg/dL ABX Reporting Has patient been on IV antibiotics over the past 48 hours?: No Sepsis Event Note (H) - Evaluation Current Stage of Sepsis: Ruled out Assessment/Plan - Problem List (1) Pleural effusion Impression: Ultrasound shows large, bilateral pleural effusion and patient is short of breath. Plan for thoracentesis tomorrow (Thursday 06/29), hold Lovenox until after procedure. Patient currently stable at 97% on 1 L O2 nasal cannula. Continue lasix and O2 therapy by nasal cannula as needed. Inpatient status (2) Atrial fibrillation with rapid ventricular response Impression: HR today 108 BPM. Patient taking metoprolol and cardizem. Holding Lovanox for anticipated thoracentesis tomorrow. She is up and moving around frequently and using sequential compression devices in bed. ECHO study about one week ago reveal normal arrange EF, RVSP 44 mmHG, mild abnormal right heart pressure, no aortic stenosis. we will not report ECHO study. (3) Breast mass, right Impression: Right mastectomy, follow up with oncologist outpatient (4) Lower extremity edema Impression: Edema is improving, none noted today. Plan to continue lasix.
[2021-06-29 05:39] LABS: BASOPHILS # (AUTO) 0.1 10^3/uL (0.0-0.1); BASOPHILS % (AUTO) 0.5 %; EOSINOPHILS # (AUTO) 0.2 10^3/uL (0.0-0.7); EOSINOPHILS % (AUTO) 1.9 %; HCT - HEMATOCRIT 30.9 % (37.0-47.0); LYMPHOCYTES # (AUTO) 1.2 10^3/uL (1.5-3.5); LYMPHOCYTES % (AUTO) 12.6 %; MEAN CORPUSCULAR HGB CONC 32.4 g/dL (32.0-36.0); MEAN CORPUSCULAR VOLUME 80.3 fL (81.0-99.0); MEAN PLATELET VOLUME 10.3 fL (7.9-10.8); MONOCYTES # (AUTO) 0.8 10^3/uL (0.0-1.0); MONOCYTES % (AUTO) 8.7 %; NEUTROPHILS # (AUTO) 7.1 10^3/uL (1.5-6.6); NEUTROPHILS % (AUTO) 75.9 %; PLT - PLATELET COUNT 635 10^3/uL (130-450); RED BLOOD COUNT 3.85 10^6/uL (4.20-5.40); WHITE BLOOD COUNT 9.4 x10^3/uL (4.8-10.8)
[2021-06-29 05:45] LABS: CREATININE 0.7 mg/dL (0.4-1.0); POTASSIUM 3.5 mmol/L (3.5-5.0)
[2021-06-29] MEDS: FUROSEMIDE 20 MG/2 ML VIAL IVP SCH ×2 (06:38→13:42)
[2021-06-29 08:39] LABS: INR 1.1 (0.8-1.2); PT - PROTHROMBIN TIME 12.7 secs (9.9-12.6)
--- NOTE | 2021-06-29 10:29 | PROVIDER PROGRESS NOTE ---
Subjective - Prog Note Date Prog Note Date: 06/29/21 Prog Note Time: 03:00 - Subjective Pt reports feeling: Improved Subjective: Patient reports that she is feeling well today. Denies feeling short of breath. Denies chest pain. She has been up and moving around, using the bathroom. She is amenable to the plan to do a unilateral thoracentesis today. She is anxious for this to happen, reports that she is hungry, has not eaten since midnight last night. She is also hoping to get a COVID PCR test done today because she needs a negative test to attend her pulmonary function test appointment at the [facility] on Tuesday. Current Medications - Current Medications Current Medications: Active Medications Acetaminophen (Acetaminophen 325 Mg Tablet) 650 mg PO Q4HR PRN PRN Reason: Pain 1 to 4 Diltiazem HCl (Diltiazem 60 Mg Tablet) 60 mg PO Q6HR LORENA Last Admin: 06/29/21 06:38 Dose: 60 mg Furosemide (Furosemide 20 Mg/2 Ml Vial) 40 mg IVP BIDDIURETIC [facility] Last Admin: 06/29/21 06:38 Dose: 40 mg Metoprolol Tartrate (Metoprolol 5 Mg/5 Ml Vial) 5 mg IVP Q6H PRN PRN Reason: Tachycardia Last Admin: 06/27/21 21:00 Dose: 5 mg Multi-Ingredient Ointment (Zinc Oxide 20% Oint 30 Gm Tube) 1 applic TOP PRN PRN PRN Reason: Skin Care Ondansetron HCl (Ondansetron 4 Mg/2 Ml Vial) 4 mg IVP Q6HR PRN PRN Reason: Nausea / Vomiting Oxycodone HCl (Oxycodone 5 Mg Tablet) 5 mg PO Q4HR PRN PRN Reason: Pain 5 to 7 Sodium Chloride (Sodium Chloride Flush 0.9% 10 Ml Syringe) 10 ml IVP PRN PRN PRN Reason: NEEDED PER PROVIDER ORDERS Last Admin: 06/28/21 05:43 Dose: 10 ml Sodium Chloride (Sodium Chloride Flush 0.9% 10 Ml Syringe) 10 ml IVP 0100 ,0900,1700 [facility] Last Admin: 06/28/21 23:47 Dose: 10 ml Metoprolol Tartrate [Lopressor] 12.5 mg PO BID 06/27/21 Objective - Vital Signs/Intake & Output Reviewed Vital Signs: Yes Vital Signs: Vital Signs x48h Temp Pulse Resp BP BP Pulse Ox 06/29/21 08:54 96 06/29/21 07:56 36.5 C 129 H 20 118/60 95 06/29/21 06:38 135/61 H 06/29/21 05:44 93 06/29/21 05:00 36.4 C L 105 H 18 135/61 H 98 Intake & Output: Intake & Output 06/26/21 06/27/21 06/28/21 06/29/21 23:59 23:59 23:59 23:59 Intake Total 320 1230 990 Output Total 400 1275 1870 900 Balance -80 -45 -880 -900 - Objective General Appearance: positive: No acute distress, Alert Eyes Bilateral: positive: Normal inspection, PERRL, EOMI ENT: positive: ENT inspection nml, No signs of dehydration Neck: positive: Nml inspection, No JVD, Trachea midline Respiratory: positive: Chest non-tender, Other (Dimished breath sounds in the lower lobes, tachypnic at 24 breaths/min) Cardiovascular: positive: Regular rate & rhythm, No murmur, No gallop, Tachycardia Abdomen: positive: Non-tender Back: positive: Nml inspection Skin: positive: Color nml Extremities: positive: Non-tender, Full ROM, Nml appearance, No pedal edema Neurologic/Psychiatric: positive: Oriented x3, CN's nml (2-12), Motor nml, Sensation nml, Mood/affect nml - Lab Results Fish Bones: 06/29/21 04:50 06/29/21 04:50 Other Labs: Lab Results x24hrs 06/29/21 06/29/21 06/29/21 Range/Units 08:25 04:50 04:50 WBC 9.4 (4.8-10.8) x10^3/uL RBC 3.85 L (4.20-5.40) 10^6/uL Hgb 10.0 L (12.0-16.0) g/dL Hct 30.9 L (37.0-47.0) % MCV 80.3 L (81.0-99.0) fL MCH 26.0 L (27.0-31.0) pg MCHC 32.4 (32.0-36.0) g/dL RDW 18.0 H (12.0-15.0) % Plt Count 635 H (130-450) 10^3/uL MPV 10.3 (7.9-10.8) fL Neut # (Auto) 7.1 H (1.5-6.6) 10^3/uL Lymph # (Auto) 1.2 L (1.5-3.5) 10^3/uL Motley # (Auto) 0.8 (0.0-1.0) 10^3/uL Eos # (Auto) 0.2 (0.0-0.7) 10^3/uL Baso # (Auto) 0.1 (0.0-0.1) 10^3/uL Absolute Nucleated RBC 0.00 x10^3/uL Nucleated RBC % 0.0 /100WBC PT 12.7 H (9.9-12.6) secs INR 1.1 (0.8-1.2) Sodium 136 (135-145) mmol/L Potassium 3.5 (3.5-5.0) mmol/L Chloride 95 L (101-111) mmol/L Carbon Dioxide 31 (21-32) mmol/L Anion Gap 10.0 (6-13) BUN 24 H (6-20) mg/dL Creatinine 0.7 (0.4-1.0) mg/dL Estimated GFR (MDRD) 81 L (>89) Glucose 127 H (70-100) mg/dL Calcium 9.0 (8.5-10.3) mg/dL ABX Reporting Has patient been on IV antibiotics over the past 48 hours?: No Sepsis Event Note (H) - Evaluation Current Stage of Sepsis: Ruled out Assessment/Plan - Problem List (1) Pleural effusion Impression: Ultrasound shows large, bilateral pleural effusion and patient is short of breath and tachypnic. She had a pleural effusion drained the week before she was admitted, it appears to have reoccurred. Etiology is unclear, possibly related to her breath cancer. Plan for thoracentesis today. Unilateral only due to risk for pneumothoarx. Will reassess how patient feels following procedure to determine if we need to perform thoracetenesis on contralateral side tomorrow. If she feels better, we will not perform the additional procedure and she will be discharged. If future reoccurrence, consider pleurodesis. Hold Lovenox until after procedure. Patient currently stable at 95% on RA. Continue lasix and O2 therapy by nasal cannula as needed. Inpatient status (2) Atrial fibrillation with rapid ventricular response Impression: HR today 96 BPM. Patient taking diltiazem. Also metoprolol PRN for tachycardia. Holding Lovanox for thoracentesis today. She is up and moving around frequently and using sequential compression devices in bed. ECHO study about one week ago reveal normal arrange EF, RVSP 44 mmHG, mild abnor mal right heart pressure, no aortic stenosis. we will not report ECHO study. (3) Breast mass, right Impression: Right mastectomy, will follow up with oncologist outpatient (4) Lower extremity edema Impression: Edema is improving, none noted today. Plan to continue lasix.
[2021-06-29] MEDS: SODIUM CHLORIDE FLUSH 0.9% 10 ML SYRINGE IVP SCH ×2 (13:41→16:47)
[2021-06-29 16:08] LABS: B. PARAPERTUSSIS- RESP PCR PAN NOT DETECTED; B. PERTUSSIS- RESP PCR PANEL NOT DETECTED; C. PNEUMONIAE- RESP PCR PANEL NOT DETECTED; CORONAVIRUS 229E-RESP PCR NOT DETECTED; CORONAVIRUS HKU1-RESP PCR NOT DETECTED; CORONAVIRUS NL63-RESP PCR NOT DETECTED; CORONAVIRUS OC43-RESP PCR NOT DETECTED; HUMAN METAPNEUMOVIRUS NOT DETECTED; INFLUENZA A- RESP PCR PANEL NOT DETECTED; INFLUENZA B - RESP PCR PANEL NOT DETECTED; M. PNEUMONIAE- RESP PCR PANEL NOT DETECTED; PARAINFLUENZA VIRUS 1 NOT DETECTED; PARAINFLUENZA VIRUS 2 NOT DETECTED; PARAINFLUENZA VIRUS 3 NOT DETECTED; PARAINFLUENZA VIRUS 4 NOT DETECTED; RHINOVIRUS/ENTEROVIRUS NOT DETECTED; RSV- RESP PCR PANEL NOT DETECTED; SARS-CoV-2 -RESP PCR PANEL NOT DETECTED
[2021-06-29] MEDS: METOPROLOL 5 MG/5 ML VIAL IVP PRN (16:47)
--- NOTE | 2021-06-29 18:34 | CONSULTATION NOTE ---
Referring Provider Name of Referring Provider:: Jef Consult Date: 06/29/21 Chief Complaint - Chief Complaint Chief Complaint: Pleural effusion History of Present Illness - History Obtained From History obtained from: Patient, provider, and EMR - History of Present Illness HPI Comment/Other: 80F with metastatic breast cancer, A fib with RVR, anxiety, and pleural effusion s/p diagnostic thoracentesis 06/19/21 who was admitted for SOB, A fib with RVR, and found to have continued bilateral pleural effusions. She had the R effusion aspirated (40cc) on 06/19 and cytology was nondiagnostic. She is on room air but has intermittent SOB. The medical team is requesting thoracentesis for both symptomatic improvement and diagnosis. CXR and US demonstrate R greater than L pleural effusions. History - Past Medical History Cardiovascular: reports: None Respiratory: reports: None Neuro: reports: None Endocrine/Autoimmune: reports: None GI: reports: None [employer]: reports: None : reports: None HEENT: reports: None Psych: reports: None Musculoskeletal: reports: None Derm: reports: None MRSA Hx?: No - Past Surgical History HEENT: reports: Cataracts - Family & Social History Family History: Mother: (father unknown cardiac disease), Father: Family History Comment/Other: Patient report her father at age 78 from heart problem. Her mother at age 80 unknown causes. Living Situation: With spouse/s.o. Social History Notes: 2 children - both healthy. She denies history of cigarette smoking, alcohol or drug use - Substance History Use: Uses substance without health or social issues: NONE - POLST Patient has POLST: No POLST Status: Full Code Meds/Allgy - Home Medications Home Medications: Ambulatory Orders Medication Instructions Recorded Confirmed Ondansetron Odt [Zofran Odt] 4 mg TL Q6H PRN #30 tab 02/16/21 06/27/21 Acetaminophen [Tylenol] 650 mg PO Q4HR PRN tablet 05/30/21 06/27/21 Apixaban [Eliquis] 5 mg PO BID #60 tablet 05/30/21 06/27/21 Furosemide [Lasix] 20 mg PO DAILY #30 tablet 05/30/21 06/27/21 diltiaZEM CD [Cardizem Cd] 180 mg PO DAILY #30 cap 05/30/21 06/27/21 Metoprolol Tartrate [Lopressor] 12.5 mg PO BID 06/27/21 06/27/21 - Allergies Allergies/Adverse Reactions: Allergies Allergy/AdvReac Type Severity Reaction Status Date / Time No Known Drug Allergies Allergy Verified 06/26/21 12:18 Review of Systems - Cardiovascular Cariovascular: reports: Irregular heart rate - Respiratory Respiratory: reports: SOB with exertion - All Other Systems All Other Systems: reports: Reviewed and negative Exam - Vital Signs Reviewed Vital Signs: Yes Vital Signs: Vital Signs x48h Temp Pulse Pulse Resp BP BP Pulse Ox 06/29/21 16:43 36.7 C 55 L 20 128/50 L 96 06/29/21 13:41 135/59 H 06/29/21 11:20 36.5 C 115 H 18 110/57 L 96 - Physical Exam General Appearance: positive: No acute distress Eyes Bilateral: positive: Normal inspection ENT: positive: ENT inspection nml Neck: positive: Nml inspection Respiratory: positive: Chest non-tender, No respiratory distress Cardiovascular: positive: Irregularly irregular Abdomen: positive: Non-tender Back: positive: Other (Recent R thoracentesis site c/d/i) Skin: positive: Color nml Extremities: positive: Non-tender Neurologic/Psychiatric: positive: Oriented x3 Conclusion/Plan - Problem List (1) Pleural effusion Conclusion/Plan: Discussed plan for unilateral right thoracentesis for symptomatic improvement of her SOB as well as for diagnostic purposes. Discussed risks including bleeding, pneumothorax, recurrence of effusion, and non-diagnosis. Patient in agreement to proceed. - Lab Results Fish Bones: 06/29/21 04:50 06/29/21 04:50
--- NOTE | 2021-06-29 20:24 | OPERATIVE REPORT ---
Operative Report - General Admit Date: 06/27/21 Procedure Date: 06/29/21 Planned Procedure: Right thoracentesis Pre-Op Diagnosis: Pleural effusion Procedure Performed: Right thoracentesis - Procedure Note Primary Surgeon: Melvin Anesthesia Technique: Local Indications: Pleural effusion with shortness of breath and arrhythmia Findings: Right pleural effusion about 8cm at greatest depth. After administering lidocaine, using seldinger technique, the pleural space was entered with a catheter, which was connected to a vaccutainer, and 700cc of straw-colored fluid was aspirated. The catheter was removed and bandage applied. The patient tolerated the procedure well. Post-procedure chest x-ray is ordered. Complications: None apparent
--- NOTE | 2021-06-29 20:31 | XRAY Report ---
PROCEDURE: Post Thoracentesis 1V CXR INDICATIONS: POST THORACENTESIS COMMENTS: Post Thoracentesis PRIORS: 06/26/21, 06/19/21, 05/25/21 TECHNIQUE: One view of the chest was acquired. COMPARISON: 06/26/2021 FINDINGS: Surgical changes and devices: Left chest wall port. Lungs and pleura: Small bilateral pleural effusions. No pneumothorax. Mediastinum: Mediastinal contours appear normal. Heart size is normal. Bones and chest wall: No suspicious bony lesions. Overlying soft tissues appear unremarkable. IMPRESSION: Status post thoracentesis with no evidence of pneumothorax. Reviewed by: Dusty Varela on 06/29/2021 8:30 PM PST Approved by: Dusty Varela on 06/29/2021 8:30 PM [facility] Station ID: [id number]
--- NOTE | 2021-06-29 20:33 | Ultrasound Report ---
PROCEDURE: Thoracentesis Puncture INDICATIONS: pleural effusion COMPARISON: None. FINDINGS: Ultrasound demonstrates a large right pleural effusion. Postprocedure ultrasound demonstrates complet e resolution of the pleural effusion. Thoracentesis was performed by Dr. Charles IMPRESSION: Successful ultrasound-guided thoracentesis. Reviewed by: Dusty Varela on 06/29/2021 8:32 PM PST Approved by: Dusty Varela on 06/29/2021 8:32 PM [facility] Station ID: [id number]
[2021-06-29 21:02] LABS: BF CLARITY HAZY; BF COLOR YELLOW; CC,BF RBC 4000 /mm^3; CC,BF WBC 1620 /mm^3
[2021-06-29 22:06] LABS: LYMPHOCYTES %,BODY FLUID 25 %; MESOTHELIAL %, BF 62 %; MONOCYTES %,BODY FLUID 2 %; NEUTROPHILS %, BF 1 %
[2021-06-29 22:08] LABS: BF SOURCE PLEURAL
[2021-06-30] MEDS: SODIUM CHLORIDE FLUSH 0.9% 10 ML SYRINGE IVP SCH ×3 (00:17→15:23)
[2021-06-30 05:11] LABS: BASOPHILS # (AUTO) 0.1 10^3/uL (0.0-0.1); BASOPHILS % (AUTO) 0.4 %; EOSINOPHILS # (AUTO) 0.1 10^3/uL (0.0-0.7); EOSINOPHILS % (AUTO) 0.6 %; HGB - HEMOGLOBIN 10.7 g/dL (12.0-16.0); LYMPHOCYTES # (AUTO) 1.2 10^3/uL (1.5-3.5); LYMPHOCYTES % (AUTO) 8.8 %; MEAN CORPUSCULAR HGB CONC 32.4 g/dL (32.0-36.0); MEAN CORPUSCULAR VOLUME 80.1 fL (81.0-99.0); MEAN PLATELET VOLUME 10.4 fL (7.9-10.8); MONOCYTES # (AUTO) 0.9 10^3/uL (0.0-1.0); MONOCYTES % (AUTO) 6.7 %; NEUTROPHILS # (AUTO) 11.2 10^3/uL (1.5-6.6); NEUTROPHILS % (AUTO) 83.1 %; PLT - PLATELET COUNT 706 10^3/uL (130-450); RED BLOOD COUNT 4.12 10^6/uL (4.20-5.40); RED CELL DISTRIBUTION WIDTH 17.8 % (12.0-15.0); WHITE BLOOD COUNT 13.5 x10^3/uL (4.8-10.8)
[2021-06-30 05:19] LABS: CREATININE 0.6 mg/dL (0.4-1.0); POTASSIUM 3.3 mmol/L (3.5-5.0)
[2021-06-30] MEDS: FUROSEMIDE 20 MG/2 ML VIAL IVP SCH (06:48)
[2021-06-30] MEDS ORDERED: POTASSIUM CHLORIDE 20 MEQ TABLET PO ONE (08:46)
[2021-06-30] MEDS ORDERED: METOPROLOL TARTRATE 25 MG TABLET PO SCH (09:00)
[2021-06-30] MEDS: APIXABAN 5 MG TABLET PO SCH ×2 (09:29→20:43)
[2021-06-30] MEDS: FUROSEMIDE 40 MG TABLET PO SCH (13:52)
[2021-06-30] MEDS ORDERED: METOPROLOL 5 MG/5 ML VIAL IVP STA (14:31)
--- NOTE | 2021-06-30 14:37 | PROVIDER PROGRESS NOTE ---
Assessment/Plan - Problem List (1) Atrial fibrillation with rapid ventricular response Assessment/Plan: 06/30 pt's A fib with RVR, HR is still not controlled yet. add once IV of metoprolol, continue PRN Metoprolol, resume home Metoprolol to 37.4 mg bid, continue Cardizem 60mg Q6H. If her HR is still not control, we will try Digoxin. pt took Cardizem and Metoprolol at home. pt present Atrial fibrillation with rapid ventricular response. ER was treated with IV cardizem and PO metoprolol, but pt still present HR at arrange 100-120. pt denies chest pain, palpitation. troponin is 24, EKG reveals Atrial f ibrillation with rapid ventricular response. pt is Asymptomatic for her a fibrillation with rapid ventricular response. will resume pt's home Eliquis, add Cardizem 60 Q6H, add IV of metoprolol, resume her home meds after confirmed, continue tele monitor. pt's ECHO study about one week ago reveal normal arrange EF, RVSP 44 mmHG, mild abnormal right heart pressure, no aortic stenosis. we will not report ECHO study. 2. Hypoxia 06/30 improved/resolve. Patient had a 97% oxygen saturation on room air, pt Has 96% oxygen saturation on 2 L oxygen. Patient has a history of persistent Pleural effusion, And a history of pulmonary nodules and Metastatic breast cancer. Chest x-ray on today show slightly enlarge pleural effusion. we will order US of chest to see the size of pleural effusion, pt had thoracentesis before, check PT/INR, IV of Lasix, Supplement of oxygen as needed 3. bilateral lower extremity edema 06/30 improved significantly, Continue Lasix PO pt present bilateral lower extremity edema, recently ECHO reveal preserved EF with mild abnormal right heart pression and RVSP 44 mmHG, more concern pt's diastolic heart failure. IV of lasix, lab and vital monitor 4. Pleural effusions 06/30 Patient had right thoracentesis on yesterday, 700 cc fluids was drain out. pt's Respiratory status is improved. Now she had a 97% oxygen saturation on room air. Continue Lasix p.o. as the above, will have US of chest to figure out size of pleural effusion, then may consult with IR for thoracentesis as clinic indicated. continue IV of Lasix. 5. Metastatic breast cancer pt has right mastectomy, pt report her chemotherapy is holding now, pt may followup with her oncologist as out-pt. - Current Meds Current Meds: Current Medications Generic Name Dose Route Start Last Admin Trade Name Blanka PRN Reason Stop Dose Admin Acetaminophen 650 mg 06/26/21 15:01 06/30/21 09:29 Acetaminophen 325 Mg Tablet PO 650 mg Q4HR PRN Administration Pain 1 to 4 Apixaban 5 mg 06/30/21 09:00 06/30/21 09:29 Apixaban 5 Mg Tablet PO 5 mg BID LORENA Administration Diltiazem HCl 60 mg 06/26/21 17:09 06/30/21 13:52 Diltiazem 60 Mg Tablet PO 60 mg Q6HR LORENA Administration Furosemide 40 mg 06/30/21 14:00 06/30/21 13:52 Furosemide 40 Mg Tablet PO 40 mg BIDDIURETIC LORENA Administration Metoprolol Tartrate 5 mg 06/26/21 16:33 06/29/21 16:47 Metoprolol 5 Mg/5 Ml Vial IVP 5 mg Q6H PRN Administration Tachycardia Sodium Chloride 10 ml 06/26/21 15:01 06/28/21 05:43 Sodium Chloride Flush 0.9% 10 Ml Syringe IVP 10 ml PRN PRN Administration NEEDED PER PROVIDER ORDERS Sodium Chloride 10 ml 06/26/21 17:00 06/30/21 06:49 Sodium Chloride Flush 0.9% 10 Ml Syringe IVP 10 ml 0100,0900,1700 LORENA Administration - Lab Result Fish Bone Diagrams: 06/30/21 04:46 06/30/21 04:46 - Additional Planning My Orders: My Active Orders 06/29/21 17:45 MISC TEST QUEST REFRIG [REFLAB] Routine MISC TEST QUEST REFRIG [REFLAB] Routine 06/30/21 09:00 Apixaban [Eliquis] 5 mg PO BID 06/30/21 14:00 Furosemide [Lasix] 40 mg PO BIDDIURETIC 06/30/21 14:31 Metoprolol Inj [Lopressor Inj] 5 mg IVP ONCE STA 06/30/21 21:00 Metoprolol Tartrate [Lopressor] 37.5 mg PO BID 07/01/21 05:00 BMP - BASIC METABOLIC PANEL [CHEM] DAILYLAB CBC - COMP BLD CT W/AUTO DIFF [HEME] DAILYLAB Subjective - Subjective Patient Reports: Feeling Better, Resting Comfortably Objective Vital Signs: Vital Signs - 24 hr 06/29/21 06/29/21 06/30/21 16:43 21:00 00:00 Temperature 36.7 C 36.6 C 36.9 C Heart Rate [ 55 L 94 Brachial] Heart Rate [ 117 H Monitoring electrodes] Respiratory 20 18 20 Rate Blood Pressure Blood Pressure 128/50 L 120/62 125/64 [Left Brachial artery] O2 Saturation 96 95 96 06/30/21 06/30/21 06/30/21 00:16 05:00 06:47 Temperature 36.4 C L Heart Rate [ Brachial] Heart Rate [ 130 H Monitoring electrodes] Respiratory 20 Rate Blood Pressure 125/64 121/69 Blood Pressure 121/69 [Left Brachial artery] O2 Saturation 94 06/30/21 06/30/21 06/30/21 07:48 09:29 13:30 Temperature 36.4 C L 36.6 C Heart Rate [ Brachial] Heart Rate [ 124 H 99 Monitoring electrodes] Respiratory 20 16 Rate Blood Pressure 117/55 L Blood Pressure 117/55 L 117/59 L [Left Brachial artery] O2 Saturation 96 97 06/30/21 13:52 Temperature Heart Rate [ Brachial] Heart Rate [ Monitoring electrodes] Respiratory Rate Blood Pressure 121/54 L Blood Pressure [Left Brachial artery] O2 Saturation Oxygen O2 Source Room air I&O (Last 24 Hrs): Intake and Output Totals x24h 06/28/21 06/29/21 06/30/21 23:59 23:59 23:59 Intake Total 990 300 760 Output Total 1870 1650 225 Balance -880 -1350 535 General: Alert, Oriented x3, No acute distress HEENT: Atraumatic Neck: Supple Lymphatic: no adenopathy Neuro: Alert, Non Focal, Oriented Times 3 Cardiovascular: Regular rate, Normal S1, Normal S2 Respiratory: Chest non-tender, No respiratory distress Abdomen: Normal bowel sounds, Soft Extremities: Normal pulses - Results Results: Laboratory Results WBC 13.5 x10^3/uL (4.8-10.8) H 06/30/21 04:46 RBC 4.12 10^6/uL (4.20-5.40) L 06/30/21 04:46 Hgb 10.7 g/dL (12.0-16.0) L 06/30/21 04:46 Hct 33.0 % (37.0-47.0) L 06/30/21 04:46 MCV 80.1 fL (81.0-99.0) L 06/30/21 04:46 MCH 26.0 pg (27.0-31.0) L 06/30/21 04:46 MCHC 32.4 g/dL (32.0-36.0) 06/30/21 04:46 RDW 17.8 % (12.0-15.0) H 06/30/21 04:46 Plt Count 706 10^3/uL (130-450) H 06/30/21 04:46 MPV 10.4 fL (7.9-10.8) 06/30/21 04:46 Neut # (Auto) 11.2 10^3/uL (1.5-6.6) H 06/30/21 04:46 Lymph # (Auto) 1.2 10^3/uL (1.5-3.5) L 06/30/21 04:46 [place] # (Auto) 0.9 10^3/uL (0.0-1.0) 06/30/21 04:46 Eos # (Auto) 0.1 10^3/uL (0.0-0.7) 06/30/21 04:46 Baso # (Auto) 0.1 10^3/uL (0.0-0.1) 06/30/21 04:46 Absolute Nucleated RBC 0.00 x10^3/uL 06/30/21 04:46 Nucleated RBC % 0.0 /100WBC 06/30/21 04:46 PT 12.7 secs (9.9-12.6) H 06/29/21 08:25 INR 1.1 (0.8-1.2) 06/29/21 08:25 Sodium 134 mmol/L (135-145) L 06/30/21 04:46 Potassium 3.3 mmol/L (3.5-5.0) L 06/30/21 04:46 Chloride 91 mmol/L (101-111) L 06/30/21 04:46 Carbon Dioxide 30 mmol/L (21-32) 06/30/21 04:46 Anion Gap 13.0 (6-13) 06/30/21 04:46 BUN 21 mg/dL (6-20) H 06/30/21 04:46 Creatinine 0.6 mg/dL (0.4-1.0) 06/30/21 04:46 Estimated GFR (MDRD) 96 (>89) 06/30/21 04:46 Glucose 121 mg/dL (70-100) H 06/30/21 04:46 Calcium 9.0 mg/dL (8.5-10.3) 06/30/21 04:46 Total Bilirubin 0.6 mg/dL (0.2-1.0) 06/26/21 12:23 AST 21 IU/L (10-42) 06/26/21 12:23 ALT 26 IU/L (10-60) 06/26/21 12:23 Alkaline Phosphatase 34 IU/L (42-121) L 06/26/21 12:23 Troponin I High Sens 18.7 ng/L (2.3-14.8) H* 06/26/21 20:00 B-Natriuretic Peptide 225 pg/mL (5-100) H 06/26/21 12:23 Total Protein 7.1 g/dL (6.7-8.2) 06/26/21 12:23 Albumin 3.3 g/dL (3.2-5.5) 06/26/21 12:23 Globulin 3.8 g/dL (2.1-4.2) 06/26/21 12:23 Albumin/Globulin Ratio 0.9 (1.0-2.2) L 06/26/21 12:23 Lipase 32 U/L (22-51) 06/26/21 12:23 Fluid Source PLEURAL 06/29/21 17:45 Fluid Color YELLOW 06/29/21 17:45 Fluid Clarity HAZY 06/29/21 17:45 Fluid WBC 1620 /mm^3 06/29/21 17:45 Fluid RBC 4000 /mm^3 06/29/21 17:45 Fluid Neutrophils % 1 % 06/29/21 17:45 Fluid Lymphocytes % 25 % 06/29/21 17:45 Fluid Monocytes % 2 % 06/29/21 17:45 Fld Mesothelial Cell % 62 % 06/29/21 17:45 Nasal Adenovirus (PCR) NOT DETECTED 06/29/21 15:12 Nasal B. parapertussis DNA (PCR) NOT DETECTED 06/29/21 15:12 Nasal Coronavir 229E PCR NOT DETECTED 06/29/21 15:12 Nasal Coronavir HKU1 PCR NOT DETECTED 06/29/21 15:12 Nasal Coronavir NL63 PCR NOT DETECTED 06/29/21 15:12 Nasal Coronavir OC43 PCR NOT DETECTED 06/29/21 15:12 Nasal Enterovir/Rhinovir PCR NOT DETECTED 06/29/21 15:12 Nasal Influenza B PCR NOT DETECTED 06/29/21 15:12 Nasal Influenza A PCR NOT DETECTED 06/29/21 15:12 Nasal Parainfluen 1 PCR NOT DETECTED 06/29/21 15:12 Nasal Parainfluen 2 PCR NOT DETECTED 06/29/21 15:12 Nasal Parainfluen 3 PCR NOT DETECTED 06/29/21 15:12 Nasal Parainfluen 4 PCR NOT DETECTED 06/29/21 15:12 Nasal RSV (PCR) NOT DETECTED 06/29/21 15:12 Nasal B.pertussis DNA PCR NOT DETECTED 06/29/21 15:12 Nasal C.pneumoniae (PCR) NOT DETECTED 06/29/21 15:12 Omar Human Metapneumo PCR NOT DETECTED 06/29/21 15:12 Nasal M.pneumoniae (PCR) NOT DETECTED 06/29/21 15:12 Nasal SARS-CoV-2 (PCR) NOT DETECTED 06/29/21 15:12 - Procedures Procedures: Procedures CATARAC PHACOEMULS/ASPIR (01/03/13) INSERT LENS AT CATAR EXT (01/03/13) Sepsis Event Note (H) - Evaluation Current Stage of Sepsis: Ruled out ABX Reporting Has patient been on IV antibiotics over the past 48 hours?: No Current Medications - Current Medications Current Medications: Active Medications Acetaminophen (Acetaminophen 325 Mg Tablet) 650 mg PO Q4HR PRN PRN Reason: Pain 1 to 4 Last Admin: 06/30/21 09:29 Dose: 650 mg Apixaban (Apixaban 5 Mg Tablet) 5 mg PO BID LORENA Last Admin: 06/30/21 09:29 Dose: 5 mg Diltiazem HCl (Diltiazem 60 Mg Tablet) 60 mg PO Q6HR LORENA Last Admin: 06/30/21 13:52 Dose: 60 mg Furosemide (Furosemide 40 Mg Tablet) 40 mg PO BIDDIURETIC LORENA Last Admin: 06/30/21 13:52 Dose: 40 mg Metoprolol Tartrate (Metoprolol 5 Mg/5 Ml Vial) 5 mg IVP Q6H PRN PRN Reason: Tachycardia Last Admin: 06/29/21 16:47 Dose: 5 mg Metoprolol Tartrate (Metoprolol Tartrate 25 Mg Tablet) 37.5 mg PO BID [facility] Multi-Ingredient Ointment (Zinc Oxide 20% Oint 30 Gm Tube) 1 applic TOP PRN PRN PRN Reason: Skin Care Ondansetron HCl (Ondansetron 4 Mg/2 Ml Vial) 4 mg IVP Q6HR PRN PRN Reason: Nausea / Vomiting Oxycodone HCl (Oxycodone 5 Mg Tablet) 5 mg PO Q4HR PRN PRN Reason: Pain 5 to 7 Sodium Chloride (Sodium Chloride Flush 0.9% 10 Ml Syringe) 10 ml IVP PRN PRN PRN Reason: NEEDED PER PROVIDER ORDERS Last Admin: 06/28/21 05:43 Dose: 10 ml Sodium Chloride (Sodium Chloride Flush 0.9% 10 Ml Syringe) 10 ml IVP 0100,0900,1700 [facility] Last Admin: 06/30/21 06:49 Dose: 10 ml Metoprolol Tartrate [Lopressor] 12.5 mg PO BID 06/27/21
[2021-06-30] MEDS: METOPROLOL TARTRATE 25 MG TABLET PO SCH (20:43)
[2021-07-01] MEDS: SODIUM CHLORIDE FLUSH 0.9% 10 ML SYRINGE IVP SCH ×2 (03:17→08:59)
[2021-07-01 04:47] LABS: BASOPHILS % (AUTO) 0.3 %; EOSINOPHILS # (AUTO) 0.1 10^3/uL (0.0-0.7); HGB - HEMOGLOBIN 10.1 g/dL (12.0-16.0); LYMPHOCYTES # (AUTO) 1.5 10^3/uL (1.5-3.5); MEAN CORPUSCULAR HEMOGLOBIN 25.7 pg (27.0-31.0); MEAN CORPUSCULAR HGB CONC 32.6 g/dL (32.0-36.0); MEAN CORPUSCULAR VOLUME 78.9 fL (81.0-99.0); MEAN PLATELET VOLUME 10.1 fL (7.9-10.8); MONOCYTES # (AUTO) 1.1 10^3/uL (0.0-1.0); NEUTROPHILS # (AUTO) 9.5 10^3/uL (1.5-6.6); NEUTROPHILS % (AUTO) 77.4 %; PLT - PLATELET COUNT 656 10^3/uL (130-450); RED BLOOD COUNT 3.93 10^6/uL (4.20-5.40); RED CELL DISTRIBUTION WIDTH 17.4 % (12.0-15.0); WHITE BLOOD COUNT 12.3 x10^3/uL (4.8-10.8)
[2021-07-01 04:54] LABS: CALCIUM 9.1 mg/dL (8.5-10.3); CREATININE 0.8 mg/dL (0.4-1.0); POTASSIUM 3.6 mmol/L (3.5-5.0)
[2021-07-01] MEDS: FUROSEMIDE 40 MG TABLET PO SCH ×2 (05:55→14:28)
[2021-07-01] MEDS: APIXABAN 5 MG TABLET PO SCH (08:56)
[2021-07-01] MEDS: METOPROLOL TARTRATE 25 MG TABLET PO SCH (08:57)
[2021-07-01] MEDS ORDERED: diltiaZEM CD 180 MG CAPSULE PO SCH (09:00)
[2021-07-01] MEDS ORDERED: diltiaZEM CD 240 MG CAPSULE PO SCH (09:30)
[2021-07-01 12:46] VITALS: BP 117/58
--- NOTE | 2021-07-01 13:14 | Discharge Plan ---
Discharge Plan Problem Reviewed?: Yes Disposition: Home, Self Care Condition: Stable Prescriptions: diltiaZEM CD [Cardizem Cd] 240 mg PO DAILY #30 cap Furosemide [Lasix] 20 mg PO BID #60 tablet Metoprolol Tartrate [Lopressor] 37.5 mg PO BID #60 tablet Diet: Regular Activity Restrictions: Activity as Tolerated Shower Restrictions: No (fall precaution) Instruction Topics: Metoprolol tablets, Diltiazem extended-release capsules or tablets, Furosemide tablets, Atrial Fibrillation Health Concerns: pleural effusion, breast cancer, afib with rapid ventricle response Plan of Treatment: you had thoracentesis to remove your right pleural effusion, now you have stable Oxygen saturation without acute respiratory distress. Your home Lasix dosage increase to 20mg twice daily. You may followup with your PCP in one week, and have blood work BMP to monitor Electrolytes as well. you may followup with oncologist to manage your breast cancer as out-pt. Your home both Cardizem and Metoprolol dosage are increased for control of your afib with rapid ventricle response, please followup with medication instruction, and see your PCP in one week to continue the management. Resume your home Eliquis as well. You may followup with iron handler as out-pt. Care Goals: Stabilization and improvement of your medical conditions Assessment: Discussed care plan with you, answer your questions, you understood Additional Instructions or Follow Up instructions: You may follow-up with your PCP in 1 week, follow-up with your oncologist and iron handler as outpatient. should your symptoms return or worse, you may present to the ER or call 911 for help Follow-Up Care: Home Health - RN No Smoking: If you smoke, Please STOP! Call for help. Follow-up with: Jeffrey Coffey MD [Primary Care Provider] -
--- NOTE | 2021-07-01 13:37 | DISCHARGE SUMMARY ---
Discharge Summary Admit Date: 06/26/21 Discharge Date: 07/01/21 Discharging Provider: Heriberto Ospina Primary Care Provider: Dr. Jeffrey Coffey Code Status: Do Not Attempt Resuscitation Condition at Discharge: Stable Discharge Disposition: Home, Self Care Discharge Facility Name: home - DIAGNOSES Discharge Diagnoses with Status of Each Condition: (1) Atrial fibrillation with rapid ventricular response resolved. pt's HR was controlled at 79 at the d/c. pt's home Cardizem DC is increased to 240mg daily from prior 180mg daily, and metoprolol to 37.5 mg bid from 12.5 mg bid. Home health RN is arranged for patient's medical management of patient's a fibrillation, and monitor her HR and blood pressure. Patient may resume home Eliquis, patient may follow-up with his PCP in one week and prints and drawings curator as out-pt 2. Hypoxia resolve. Patient had a 96% oxygen saturation on room air. 3. bilateral lower extremity edema Resolved, patient's bilateral lower extremity edema are totally resolved. Patient's home Lasix dosage increases to 20 mg twice daily, Follow-up with her PCP in 1 week to have blood work to monitor electrolytes 4. Pleural effusions Patient had right thoracentesis and have 700 cc pleural effusion fluid was draw out from her right pleural effusion, fluid culture is negative for organism 5. Metastatic breast cancer stable, pt may followup with her oncologist as out-pt. - HPI History of Present Illness: This is a 80-year-old female with a past medical history significant for hx of Atrial fibrillation with rapid ventricular response, Metastatic breast cancer, pleural effusion with a diagnostic thoracentesis 06/19/2021, anxiety, Thyroid nodule, who was referred to the emergency department from the [facility] for evaluation of A. fib with RVR, shortness of breath and worsening lower extremity edema. Pt report she followup with her route oncologist appointment at [facility]. Her oncologist saw her and "do not like" her bilateral lower extremity edema, concern of her fast heart beats, and shortness of breath. she was sent to ER for evaluation and treatment. In ER, pt is afrible, her HR initially was 133, pt's O2 sat is 96% on 2 liter of O2. pt report she did not take O2 at home. CXR reveals slightly enlarged bilateral pleural effusions. pt denies chest pain, fever, chill, cough, wheezing. Discussed the care goal with patient, patient clearly state she is DNR - CONSULTS | PROCEDURES Consultations: Dr. Charles Procedures: thoracentesis - ALLERGIES Allergies/Adverse Reactions: Allergies Allergy/AdvReac Type Severity Reaction Status Date / Time No Known Drug Allergies Allergy Verified 06/26/21 12:18 - MEDICATIONS Home Medications: Ambulatory Orders Medication Instructions Recorded Confirmed Ondansetron Odt [Zofran Odt] 4 mg TL Q6H PRN #30 tab 02/16/21 06/27/21 Acetaminophen [Tylenol] 650 mg PO Q4HR PRN tablet 05/30/21 06/27/21 Apixaban [Eliquis] 5 mg PO BID #60 tablet 05/30/21 06/27/21 Furosemide [Lasix] 20 mg PO BID #60 tablet 07/01/21 Metoprolol Tartrate [Lopressor] 37.5 mg PO BID #60 tablet 07/01/21 diltiaZEM CD [Cardizem Cd] 240 mg PO DAILY #30 cap 07/01/21 - PHYSICAL EXAM AT DISCHARGE General Appearance: positive: No acute distress, Alert. negative: Lethargic Eyes Bilateral: positive: Normal inspection, No lid inflammation ENT: positive: ENT inspection nml, No signs of dehydration Neck: positive: Nml inspection, Trachea midline. negative: Tracheal deviation Respiratory: positive: Chest non-tender, No respiratory distress. negative: Wheezes Cardiovascular: positive: Regular rate & rhythm. negative: Tachycardia, Bradycardia, Systolic murmur, Diastolic murmur Peripheral Pulses: positive: 2+ Abdomen: positive: Non-tender, Nml bowel sounds, No distention. negative: Tenderness Back: positive: Nml inspection Skin: positive: Color nml, Warm, Dry, Other (right mastectomy surgery site with scar tissue and was healed). negative: Cyanosis Extremities: positive: Non-tender, Full ROM, Nml appearance, No pedal edema. negative: Pedal edema Neurologic/Psychiatric: positive: Oriented x3, Motor nml, Sensation nml. negative: Weakness, Sensory loss, Facial droop, Slurred/abnml speech, Depressed mood/affect - LABS Result Diagrams: 07/01/21 04:26 07/01/21 04:26 - SEPSIS Current Stage of Sepsis: Ruled out - FOLLOW UP Follow Up: you had thoracentesis to remove your right pleural effusion, now you have stable Oxygen saturation without acute respiratory distress. Your home Lasix dosage increase to 20mg twice daily. You may followup with your PCP in one week, and have blood work BMP to monitor Electrolytes as well. you may followup with oncologist to manage your breast cancer as out-pt. Your home both Cardizem and Metoprolol dosage are increased for control of your afib with rapid ventricle response, please followup with medication instruction, and see your PCP in one week to continue the management. Resume your home Eliquis as well. You may followup with prints and drawings curator as out-pt. home health RN is arranged for pt's medical management. You may follow-up with your PCP in 1 week, follow-up with your oncologist and prints and drawings curator as outpatient. should your symptoms return or worse, you may present to the ER or call 911 for help - TIME SPENT Time Spent in Discharge (Minutes): 30
== END 2021-07-01 14:28 | disposition home or self-care (01) | DRG 309 ==
LOC: ED 12:03 → MS3 15:01 → OBSVTOIN 06-27 17:35
PROVIDERS: ADMIT Nurse Practitioner Gerontology; ATTEND Nurse Practitioner Gerontology
PROC: 0W993ZZ Drainage of Right Pleural Cavity, Percutaneous Approach (ICD-10-PCS; principal; 2021-06-29)
DX: I48.91 Unspecified atrial fibrillation (principal); J90 Pleural effusion, not elsewhere classified; I50.30 Unspecified diastolic (congestive) heart failure; R09.02 Hypoxemia; C50.919 Malignant neoplasm of unspecified site of unspecified female breast; Z90.11 Acquired absence of right breast and nipple; Z20.822 Contact with and (suspected) exposure to COVID-19
CPT/HCPCS: 32555; 36415; 71045; 76604; 80048; 80053; 81599; 83690; 83880; 84484; 85025; 85610; 87070; 87205; 87631; 89051; 93005; 96374; 96375; 96376; 99283; 99285; A9270; G0378; J1650; 0202U

== ENCOUNTER 2021-07-30 14:07 | Outpatient (CLI) | payer MEDICARE, OTHER | END 2021-07-30 14:08 | disposition critical access hospital (66) | LOC: EMS 14:07 | DX: R06.02 Shortness of breath (principal); R53.83 Other fatigue; R60.0 Localized edema | CPT/HCPCS: A0425; A0429 ==

== ENCOUNTER 2021-07-30 14:28 | Inpatient (IN) | payer MEDICARE, OTHER ==
--- NOTE | 2021-07-30 14:44 | ED Physician Documentation ---
PD HPI DYSPNEA - Stated complaint Stated Complaint: SOA - Chief complaint Chief Complaint: Resp - History obtained from History obtained from: Patient - Additional information Additional information: The patient comes emergency department chief complaint of shortness of breath. She states is been coming up over the last couple of days and that she is at the point where it is hard to get around in her house because she is so winded. The patient has a history of breast cancer and has been on chemo and radiation previously but now is on an immune suppressant. She has had a pleural effusion drained twice on the right. She also is reported to have some degree of congestive heart failure and has a history of atrial fibrillation with new onset a couple of months ago. She has at times been in atrial fibrillation with rapid ventricular response, as well. Patient denies any chest pain. No fevers or chills. She states that she has been sleeping sitting in a chair and hunched over onto her bed, but this allows her legs to hang down which has caused more swelling in her legs. She is on Lasix currently as per her oncology note from July 24. The patient denies any history of DVT. She states her legs are symmetrically edematous and that there is no pain in the legs. No other complaints at this time. Medics state that when they arrived to citrus picker the patient, she was found to have an O2 sat of 82% on room air. The patient normally is not on any home O2. Review of Systems Ten Systems: 10 systems reviewed and negative Constitutional: reports: Fatigue Eyes: reports: Reviewed and negative Ears: reports: Reviewed and negative Nose: reports: Reviewed and negative Throat: reports: Reviewed and negative Cardiac: reports: Pedal edema. denies: Chest pain / pressure Respiratory: reports: Dyspnea. denies: Cough GI: reports: Reviewed and negative : reports: Reviewed and negative Skin: reports: Reviewed and negative Musculoskeletal: reports: Reviewed and negative Neurologic: reports: Reviewed and negative Psychiatric: reports: Reviewed and negative Endocrine: reports: Reviewed and negative Immunocompromised: reports: Reviewed and negative PD PAST MEDICAL HISTORY - Past Medical History Cardiovascular: None Respiratory: None Neuro: None Endocrine/Autoimmune: None GI: None PRODUCTION TOOL ENGINEER: None : None HEENT: None Psych: None Musculoskeletal: None Derm: None - Past Surgical History Past Surgical History: No HEENT: Cataracts - Present Medications Home Medications: Ambulatory Orders Medication Instructions Recorded Confirmed Ondansetron Odt [Zofran Odt] 4 mg TL Q6H PRN #30 tab 02/16/21 07/24/21 Acetaminophen [Tylenol] 650 mg PO Q4HR PRN tablet 05/30/21 07/24/21 Apixaban [Eliquis] 5 mg PO BID #60 tablet 05/30/21 07/24/21 Furosemide [Lasix] 20 mg PO BID #60 tablet 07/01/21 07/24/21 Metoprolol Tartrate [Lopressor] 37.5 mg PO BID #60 tablet 07/01/21 07/24/21 diltiaZEM CD [Cardizem Cd] 240 mg PO DAILY #30 cap 07/01/21 07/24/21 - Allergies Allergies/Adverse Reactions: Allergies Allergy/AdvReac Type Severity Reaction Status Date / Time No Known Drug Allergies Allergy Verified 07/30/21 14:39 - Social History Does the pt smoke?: No Smoking Status: Never smoker Does the pt drink ETOH?: No Does the pt have substance abuse?: No - Immunizations Immunizations are current?: Yes - POLST Patient has POLST: No POLST Status: Full Code PD ED PE NORMAL - Vitals Vital signs reviewed: Yes - General General: Alert and oriented X 3, Well developed/nourished, Other (Mild respiratory distress, otherwise feels well.) - HEENT HEENT: Atraumatic, PERRL, EOMI, Moist mucous membranes - Neck Neck: Supple, no meningeal sign - Cardiac Cardiac: No murmur, Strong equal pulses, Other (Irregular rhythm with normal rate) - Respiratory Respiratory: Other (Patient's respirations are tachypneic and mildly labored. C lear on the left. Superior two thirds of the right lung field is clear with loss of breath sounds inferior to this.) - Abdomen Abdomen: Soft, Non tender, Non distended - Derm Derm: Normal color, Warm and dry, No rash - Extremities Extremities: No deformity, No calf tenderness / cord, Other (2+ pitting edema symmetrical, bilateral lower extremities.) - Neuro Neuro: Alert and oriented X 3 - Psych Psych: Normal mood, Normal affect Results - Vitals Vitals: Vital Signs - 24 hr 07/30/21 07/30/21 07/30/21 14:35 14:43 15:10 Temperature 36.1 C L Heart Rate 50 L 87 Respiratory 25 H 21 30 H Rate Blood Pressure 145/71 H O2 Saturation 86 L 92 93 07/30/21 17:00 Temperature Heart Rate 86 Respiratory 23 Rate Blood Pressure 123/65 O2 Saturation 100 Oxygen O2 Source Room air Oxygen Flow Rate 3 - EKG (time done) 1433 Rate: Rate (enter#) (87) Rhythm: Atrial fibrillation [place]: Normal QRS: Normal Ischemia: Normal ST segments, Non specific changes Compare to prior EKG: Old EKG unavailable Computer interpretation: Agree with computer - Labs Labs: Laboratory Tests 07/30/21 07/30/21 07/30/21 14:44 15:09 15:09 WBC 9.3 RBC 4.76 Hgb 12.8 Hct 40.1 MCV 84.2 MCH 26.9 L MCHC 31.9 L RDW 24.0 H Plt Count 395 MPV 10.7 Neut # (Auto) 7.4 H Lymph # (Auto) 1.1 L [facility] # (Auto) 0.6 Eos # (Auto) 0.1 Baso # (Auto) 0.1 Absolute Nucleated RBC 0.00 Nucleated RBC % 0.0 Manual Slide Review Indicated WBC Morphology NORMAL APPEARANCE Platelet Estimate NORMAL (130-450,000) Platelet Morphology NORMAL APPEARANCE RBC Morph Micro Appear 3+ ANISOCYTOSIS PT 15.9 H INR 1.4 H Sodium 136 Potassium 4.1 Chloride 96 L Carbon Dioxide 28 Anion Gap 12.0 BUN 23 H Creatinine 0.8 Estimated GFR (MDRD) 69 L Glucose 114 H Calcium 9.7 Total Bilirubin 0.7 AST 23 ALT 27 Alkaline Phosphatase 35 L B-Natriuretic Peptide Total Protein 7.5 Albumin 4.2 Globulin 3.3 Albumin/Globulin Ratio 1.3 Lipase 30 Nasal Adenovirus (PCR) Nasal B. parapertussis DNA (PCR) Nasal Coronavir 229E PCR Nasal Coronavir HKU1 PCR Nasal Coronavir NL63 PCR Nasal Coronavir OC43 PCR Nasal Enterovir/Rhinovir PCR Nasal Influenza B PCR Nasal Influenza A PCR Nasal Parainfluen 1 PCR Nasal Parainfluen 2 PCR Nasal Parainfluen 3 PCR Nasal Parainfluen 4 PCR Nasal RSV (PCR) Nasal B.pertussis DNA PCR Nasal C.pneumoniae (PCR) Omar Human Metapneumo PCR Nasal M.pneumoniae (PCR) Nasal SARS-CoV-2 (PCR) 07/30/21 07/30/21 15:09 16:25 WBC RBC Hgb Hct MCV MCH MCHC RDW Plt Count MPV Neut # (Auto) Lymph # (Auto) [facility] # (Auto) Eos # (Auto) Baso # (Auto) Absolute Nucleated RBC Nucleated RBC % Manual Slide Review WBC Morphology Platelet Estimate Platelet Morphology RBC Morph Micro Appear PT INR Sodium Potassium Chloride Carbon Dioxide Anion Gap BUN Creatinine Estimated GFR (MDRD) Glucose Calcium Total Bilirubin AST ALT Alkaline Phosphatase B-Natriuretic Peptide 171 H Total Protein Albumin Globulin Albumin/Globulin Ratio Lipase Nasal Adenovirus (PCR) NOT DETECTED Nasal B. parapertussis DNA (PCR) NOT DETECTED Nasal Coronavir 229E PCR NOT DETECTED Nasal Coronavir HKU1 PCR NOT DETECTED Nasal Coronavir NL63 PCR NOT DETECTED Nasal Coronavir OC43 PCR NOT DETECTED Nasal Enterovir/Rhinovir PCR NOT DETECTED Nasal Influenza B PCR NOT DETECTED Nasal Influenza A PCR NOT DETECTED Nasal Parainfluen 1 PCR NOT DETECTED Nasal Parainfluen 2 PCR NOT DETECTED Nasal Parainfluen 3 PCR NOT DETECTED Nasal Parainfluen 4 PCR NOT DETECTED Nasal RSV (PCR) NOT DETECTED Nasal B.pertussis DNA PCR NOT DETECTED Nasal C.pneumoniae (PCR) NOT DETECTED Omar Human Metapneumo PCR NOT DETECTED Nasal M.pneumoniae (PCR) NOT DETECTED Nasal SARS-CoV-2 (PCR) NOT DETECTED - Rads (name of study) Chest x-ray Radiology: Final report received, EMP read indepedently, See rad report (Small pleural effusions) CT angiogram chest Radiology: Final report received, EMP read indepedently, See rad report (No pulmonary embolism; moderately sized pleural effusion on the left with small 1 on the right; fluid overload/CHF.) PD MEDICAL DECISION MAKING - ED course Complexity details: reviewed results, re-evaluated patient, considered differential, d/w patient ED course: The patient was worked up with labs, EKG, and chest x-ray which was read by the radiologist as showing "small pleural effusions bilaterally" with some progression since the last x-ray. She was sent for CT angiogram of the chest. CTA showed a moderate pleural effusion on the right and small pleural effusion on the left with the appearance of CHF/fluid overload. The patient's BNP was 171. Her other labs showed some minor abnormalities but no other serious findings. Her Covid test was negative. Given the dual findings of pulmonary edema, as well as a moderate but not large size pleural effusion, I felt that it would be best to diurese the patient overnight and have her get an ultrasound- guided thoracentesis tomorrow. I discussed the case with Dr. Ash, who did agree to admit the patient to his service. The patient had remained stable on supplemental oxygen in the emergency department and on reevaluation was still mildly tachypneic in the lower 20s on 2 L of oxygen per nasal cannula, satting at around 94 to 95%. She is agreeable to admission. Departure - Departure Disposition: ED Place in Observation Clinical Impression: Pleural effusion, Hypoxia Acute exacerbation of CHF (congestive heart failure) Qualifiers: Heart failure type: unspecified Qualified Code(s): I50.9 - Heart failure, unspecified Breast cancer Qualifiers: Breast location: unspecified site of breast Estrogen receptor status: unspecified Patient sex: female Laterality: right Qualified Code(s): C50.911 - Malignant neoplasm of unspecified site of right female breast Condition: Serious
[2021-07-30 15:11] LABS: BASOPHILS # (AUTO) 0.1 10^3/uL (0.0-0.1); BASOPHILS % (AUTO) 0.8 %; EOSINOPHILS # (AUTO) 0.1 10^3/uL (0.0-0.7); EOSINOPHILS % (AUTO) 0.9 %; HCT - HEMATOCRIT 40.1 % (37.0-47.0); HGB - HEMOGLOBIN 12.8 g/dL (12.0-16.0); LYMPHOCYTES # (AUTO) 1.1 10^3/uL (1.5-3.5); LYMPHOCYTES % (AUTO) 12.1 %; MEAN CORPUSCULAR HEMOGLOBIN 26.9 pg (27.0-31.0); MEAN CORPUSCULAR HGB CONC 31.9 g/dL (32.0-36.0); MEAN CORPUSCULAR VOLUME 84.2 fL (81.0-99.0); MEAN PLATELET VOLUME 10.7 fL (7.9-10.8); MONOCYTES # (AUTO) 0.6 10^3/uL (0.0-1.0); MONOCYTES % (AUTO) 6.4 %; NEUTROPHILS # (AUTO) 7.4 10^3/uL (1.5-6.6); NEUTROPHILS % (AUTO) 79.5 %; PLT - PLATELET COUNT 395 10^3/uL (130-450); RED BLOOD COUNT 4.76 10^6/uL (4.20-5.40); WHITE BLOOD COUNT 9.3 x10^3/uL (4.8-10.8)
--- NOTE | 2021-07-30 15:14 | XRAY Report ---
PROCEDURE: Chest 1 View X-Ray INDICATIONS: chest pain TECHNIQUE: One view of the chest was acquired. COMPARISON: 06/29/2021 FINDINGS: Surgical changes and devices: Left chest wall port is seen. Lungs and pleura: Blunting of the costophrenic angles bilaterally consistent with small pleural effu sions, larger compared to the prior study on 06/29/2021. Mediastinum: Mediastinal contours appear normal. Heart size is normal. Bones and chest wall: No suspicious bony lesions. Overlying soft tissues appear unremarkable. IMPRESSION: Bilateral pleural effusions with adjacent bibasilar atelectasis. Reviewed by: Dusty Varela on 07/30/2021 3:13 PM PST Approved by: Dusty Varela on 07/30/2021 3:13 PM [facility] Station ID: [id number]
[2021-07-30 15:26] LABS: ALBUMIN 4.2 g/dL (3.2-5.5); ALBUMIN/GLOBULIN RATIO 1.3 (1.0-2.2); BILIRUBIN,TOTAL 0.7 mg/dL (0.2-1.0); CALCIUM 9.7 mg/dL (8.5-10.3); CREATININE 0.8 mg/dL (0.4-1.0); POTASSIUM 4.1 mmol/L (3.5-5.0); TOTAL PROTEIN 7.5 g/dL (6.7-8.2)
[2021-07-30 15:49] LABS: SLIDE REVIEW? Indicated
[2021-07-30 15:50] LABS: PLATELET ESTIMATE, MANUAL NORMAL (130-450,000) (NORMAL); PLATELET MORPHOLOGY NORMAL APPEARANCE (NORMAL); RBC MORPHOLOGY (MULTIPLE) 3+ ANISOCYTOSIS (NORMAL); WBC MORPHOLOGY (MULTIPLE) NORMAL APPEARANCE (NORMAL)
[2021-07-30] MEDS ORDERED: IOVERSOL 320 100 ML VIAL IVP ONE ×2 (15:56→16:35)
--- NOTE | 2021-07-30 16:48 | CT Report ---
PROCEDURE: ANGIO CHEST W/WO INDICATIONS: cancer, SOB, hypoxia CONTRAST: IV CONTRAST: Optiray 320 ml: 80 PO CONTRAST: *NO PO CONTRAST TECHNIQUE: After the administration of intravenous contrast, 2 mm axial images were acquired from the pulmonary apices to the posterior costophrenic angles during the arterial phase. In addition, 1 mm lung kernel and 5 mm soft tissue kernel reconstructions were performed. 3-dimensional coronal oblique maximum int ensity projection (MIP) reformats, 8 mm axial MIP, and 5 mm coronal and sagittal MPR reformats were t hen performed through the thorax. For radiation dose reduction, the following was used: automated exp osure control, adjustment of mA and/or kV according to patient size. COMPARISON: CXR 07/30/2021, 06/29/2021 CT chest 06/12/2021, 01/14/2021. FINDINGS: Image quality: Fair. Respiratory motion. Beam hardening artifact. Pulmonary arteries are diagnostic to the level of the segmental pulmonary arteries. Pulmonary arteries: Pulmonary arteries are normal in size, and demonstrate no intraluminal filling d efects to suggest central pulmonary embolism. Lungs and pleura: Bibasilar consolidative opacity. Mild diffuse patchy groundglass opacity. Moderate right and small left pleural effusions, increased. No pneumothorax. Central and peripheral airways a re patent. Mediastinum: Heart size is prominent, without pericardial effusion. No mediastinal or hilar adenopa thy identified. Thoracic aorta is normal in caliber. Esophagus is normal in caliber, without hiatal hernia. Bones and chest wall: Left-sided port. The catheter tip terminates in the upper SVC. Poorly visualiz ed. Right breast is asymmetrically thickened with abnormal soft tissue extending to the chest wall. T here are enlarged right axillary lymph nodes. A right axillary node measuring 1.1 cm, (), previou sly 1.3 cm. These nodes are only partially visualized. No suspicious bony lesions identified. Ribs a nd thoracic spine appear intact throughout. Right thyroid nodule measuring 1.6 cm. Abdomen: Visualized upper abdominal solid organs appear normal in the early arterial phase of enhanc ement. IMPRESSION: 1. No pulmonary embolism. 2. Moderate right and small left pleural effusions, increased. Suspect fluid overload/CHF and bibasil ar atelectasis. 3. Right breast/chest wall mass. Right axillary adenopathy. Reviewed by: Chintan Doshi MD on 07/30/2021 4:47 PM PST Approved by: Chintan Doshi MD on 07/30/2021 4:47 PM PST Station ID: [id number]
[2021-07-30] MEDS ORDERED: FUROSEMIDE 40 MG/4 ML VIAL IVP STA (17:02)
[2021-07-30] MEDS ORDERED: ONDANSETRON 4 MG/2 ML VIAL IVP PRN (17:14)
[2021-07-30] MEDS ORDERED: ACETAMINOPHEN 325 MG TABLET PO PRN (17:14)
[2021-07-30 17:30] LABS: B. PARAPERTUSSIS- RESP PCR PAN NOT DETECTED; B. PERTUSSIS- RESP PCR PANEL NOT DETECTED; C. PNEUMONIAE- RESP PCR PANEL NOT DETECTED; CORONAVIRUS 229E-RESP PCR NOT DETECTED; CORONAVIRUS HKU1-RESP PCR NOT DETECTED; CORONAVIRUS NL63-RESP PCR NOT DETECTED; CORONAVIRUS OC43-RESP PCR NOT DETECTED; HUMAN METAPNEUMOVIRUS NOT DETECTED; INFLUENZA A- RESP PCR PANEL NOT DETECTED; INFLUENZA B - RESP PCR PANEL NOT DETECTED; M. PNEUMONIAE- RESP PCR PANEL NOT DETECTED; PARAINFLUENZA VIRUS 1 NOT DETECTED; PARAINFLUENZA VIRUS 2 NOT DETECTED; PARAINFLUENZA VIRUS 3 NOT DETECTED; PARAINFLUENZA VIRUS 4 NOT DETECTED; RHINOVIRUS/ENTEROVIRUS NOT DETECTED; RSV- RESP PCR PANEL NOT DETECTED; SARS-CoV-2 -RESP PCR PANEL NOT DETECTED
--- NOTE | 2021-07-30 17:35 | HISTORY & PHYSICAL EXAMINATION ---
Chief Complaint - Chief Complaint Chief Complaint: dyspnea History of Present Illness - Admitted From Admitted From:: medical floor - History Obtained From Records Reviewed: [facility], ER note History obtained from: pt Exam Limitations: no - History of Present Illness HPI Comment/Other: This is a 80-year-old female with a past medical history significant for hx of Atrial fibrillation on eliquis, CHF, Metastatic breast cancer with chemo and radiation therapy in the past but now is on an immune suppressant, pleural effusion with twice of thoracentesis on the right, anxiety, Thyroid nodule, who present to emergency department for evaluation of shortness of breath. Pt report she has been shortness of breath over the last couple of days and she reach to the point she was hard to get around in her house. pt denies chest pain, fever, chill. She reported she has hx of congestive heart failure, she took Lasix at home. patient normally is not on any home O2. she also report she has more swelling in her legs. she report she feel more shortness of breath on flat at bed, orthopnea. In ER, pt was found to have 86% O2 sat on room air. CTA of the chest show no pulmonary embolism, Modulated right and a small left pleural e ffusion increased, Suspect fluids overloaded or CHF and bibasilar atelectasis, Right breast chest wall mass, right axillary adenopathy. Given above medical conditions, medical team was called for admission Discussed the care goal with patient, patient state she is DNR T History - Past Medical History Cardiovascular: reports: None Respiratory: reports: None Neuro: reports: None Endocrine/Autoimmune: reports: None GI: reports: None COLLATERAL CLERK: reports: None : reports: None HEENT: reports: None Psych: reports: None Musculoskeletal: reports: None Derm: reports: None MRSA Hx?: No - Past Surgical History HEENT: reports: Cataracts - Family & Social History Family History: Mother: (father unknown cardiac disease), Father: Family History Comment/Other: Patient report her father at age 78 from heart problem. Her mother at age 80 unknown causes. Living Situation: With spouse/s.o. Social History Notes: 2 children - both healthy. She denies history of cigarette smoking, alcohol or drug use - Substance History Use: Uses substance without health or social issues: NONE - POLST Patient has POLST: No POLST Status: Full Code Meds/Allgy - Home Medications Home Medications: Ambulatory Orders Medication Instructions Recorded Confirmed Ondansetron Odt [Zofran Odt] 4 mg TL Q6H PRN #30 tab 02/16/21 07/24/21 Acetaminophen [Tylenol] 650 mg PO Q4HR PRN tablet 05/30/21 07/24/21 Apixaban [Eliquis] 5 mg PO BID #60 tablet 05/30/21 07/24/21 Furosemide [Lasix] 20 mg PO BID #60 tablet 07/01/21 07/24/21 Metoprolol Tartrate [Lopressor] 37.5 mg PO BID #60 tablet 07/01/21 07/24/21 diltiaZEM CD [Cardizem Cd] 240 mg PO DAILY #30 cap 07/01/21 07/24/21 - Allergies Allergies/Adverse Reactions: Allergies Allergy/AdvReac Type Severity Reaction Status Date / Time No Known Drug Allergies Allergy Verified 07/30/21 14:39 Review of Systems - Constitutional Constitutional: denies: Fever, Chills - Eyes Eyes: denies: Pain - Cardiovascular Cariovascular: reports: Exertional dyspnea, Decr. exercise tolerance. denies: Chest pain - Respiratory Respiratory: reports: Orthopnea, SOB with exertion. denies: Cough - Gastrointestinal Gastrointestinal: denies: Abdominal pain, Diarrhea, Nausea, Vomiting - Musculoskeletal Musculoskeletal: denies: Muscle pain - Neurological Neurological: reports: General weakness. denies: Focal weakness, Dizziness, Numbness, Abnormal gait, Seizures, Incoordination, Slurred speech Exam - Vital Signs Vital Signs: Vital Signs x48h Temp Pulse Resp BP Pulse Ox 07/30/21 17:00 86 23 123/65 100 07/30/21 15:10 30 H 93 07/30/21 14:43 87 21 145/71 H 92 07/30/21 14:35 36.1 C L 50 L 25 H 86 L - Physical Exam General Appearance: positive: Alert, Mild distress. negative: Lethargic Eyes Bilateral: positive: Normal inspection, No lid inflammation ENT: positive: ENT inspection nml, No signs of dehydration. negative: Purulent nasal drainage Neck: positive: Nml inspection, Trachea midline. negative: Tracheal deviation Respiratory: positive: Chest non-tender, No respiratory distress. negative: Wheezes Cardiovascular: positive: Regular rate & rhythm. negative: Tachycardia, Bradycardia, Systolic murmur Peripheral Pulses: positive: 2+ Abdomen: positive: Non-tender, Nml bowel sounds, No distention. negative: Tenderness Back: positive: Nml inspection Skin: positive: Color nml, Warm, Dry. negative: Cyanosis Extremities: positive: Non-tender, Pedal edema Neurologic/Psychiatric: positive: Oriented x3, Motor nml, Sensation nml. negative: Weakness, Sensory loss, Facial droop, Slurred/abnml speech Conclusion/Plan - Problem List (1) Hypoxia Conclusion/Plan: Patient had 86% oxygen saturation on room air,Patient complaint shortness of breathing. CTA show no PE, moderate right pleural effusion also suspect fluid overload due to CHF exacerbation. Plan: Patient was already given intravenous Lasix, we will continue intravenous Lasix, patient had echo study about 3 months ago which suspect diastolic heart failure. We consult interventional radiologist, plan to have thoracentesis, plan it on tomorrow. we will NPO in the early. Patient had twice thoracentesis in the previous Admission. after Patient had thoracentesis in the past, clinically patient had significantly improved. Supplemental oxygen as needed. Thank interventional radiologist take care of this patient. (2) Acute exacerbation of CHF (congestive heart failure) Conclusion/Plan: Patient had echo study about 3 months ago which suggest diastolic heart failure. CTA show suspected of fluid overloaded/CHF. pt report orthopnea. BNP slight elevated. We will continue intravenous diuretics Lasix for patient, Daily weight, And fluids restriction. Qualifiers: Heart failure type: unspecified Qualified Code(s): I50.9 - Heart failure, unspecified (3) Pleural effusion Conclusion/Plan: CTA show moderate right pleural effusion. patient had twice right thoracentesis in the past. We plan to have thoracentesis on tomorrow, we will recheck a PT/INR. (4) Lower extremity edema Conclusion/Plan: Patient had a history of lower extremity edema, acute on chronic, Which is likely worsening by fluid overloaded and exacerbation of the CHF. We will continue intravenous diuretics, We will order PT and OT for patient. (5) Chronic atrial fibrillation Conclusion/Plan: Stable HR. Resume home metoprolol, Cardizem, and Eliquis after thoracentesis. Continue telemetry and vital signs monitor patient (6) Breast cancer Conclusion/Plan: Patient had a history of breast cancer, patient had chemo, radiation, immunotherapy. CTA show right breast wall mass and adenopathy. Patient may nitza nue follow-up with her oncology as outpatient. - Lab Results Fish Bones: 07/30/21 15:09 07/30/21 15:09 Core Measures - Anticipated LOS I expect patient to be DC'd or transferred within 96 hours.: Yes - DVT/VTE - Prophylaxis VTE/DVT Device ordered at admit?: Yes VTE/DVT Prophylaxis med ordered at admit?: Yes
[2021-07-30 17:53] LABS: INR 1.4 (0.8-1.2); PT - PROTHROMBIN TIME 15.9 secs (9.9-12.6)
[2021-07-30] MEDS ORDERED: FUROSEMIDE 40 MG/4 ML VIAL IVP SCH (18:00)
[2021-07-30] MEDS: FUROSEMIDE 40 MG/4 ML VIAL IVP SCH (19:03)
[2021-07-30] MEDS: METOPROLOL TARTRATE 25 MG TABLET PO SCH (20:49)
[2021-07-31] MEDS: SODIUM CHLORIDE FLUSH 0.9% 10 ML SYRINGE IVP SCH ×3 (00:02→16:56)
[2021-07-31 05:39] LABS: BASOPHILS # (AUTO) 0.1 10^3/uL (0.0-0.1); BASOPHILS % (AUTO) 1.1 %; EOSINOPHILS # (AUTO) 0.2 10^3/uL (0.0-0.7); HCT - HEMATOCRIT 36.2 % (37.0-47.0); HGB - HEMOGLOBIN 11.7 g/dL (12.0-16.0); LYMPHOCYTES # (AUTO) 1.1 10^3/uL (1.5-3.5); MEAN CORPUSCULAR HEMOGLOBIN 27.2 pg (27.0-31.0); MEAN CORPUSCULAR HGB CONC 32.3 g/dL (32.0-36.0); MEAN CORPUSCULAR VOLUME 84.2 fL (81.0-99.0); MEAN PLATELET VOLUME 11.1 fL (7.9-10.8); MONOCYTES # (AUTO) 0.6 10^3/uL (0.0-1.0); MONOCYTES % (AUTO) 9.8 %; NEUTROPHILS # (AUTO) 4.1 10^3/uL (1.5-6.6); NEUTROPHILS % (AUTO) 67.9 %; PLT - PLATELET COUNT 361 10^3/uL (130-450); RED CELL DISTRIBUTION WIDTH 23.9 % (12.0-15.0); WHITE BLOOD COUNT 6.1 x10^3/uL (4.8-10.8)
[2021-07-31 05:45] LABS: CALCIUM 9.5 mg/dL (8.5-10.3); CREATININE 0.8 mg/dL (0.4-1.0); POTASSIUM 4.1 mmol/L (3.5-5.0); SLIDE REVIEW? Indicated
[2021-07-31 06:01] LABS: PLATELET ESTIMATE, MANUAL NORMAL (130-450,000) (NORMAL); PLATELET MORPHOLOGY NORMAL APPEARANCE (NORMAL); RBC MORPHOLOGY (MULTIPLE) 3+ ANISOCYTOSIS (NORMAL); WBC MORPHOLOGY (MULTIPLE) NORMAL APPEARANCE (NORMAL)
[2021-07-31] MEDS: FUROSEMIDE 40 MG/4 ML VIAL IVP SCH ×2 (06:07→13:50)
--- NOTE | 2021-07-31 08:01 | PROVIDER PROGRESS NOTE ---
Assessment/Plan - Problem List (1) Hypoxia Assessment/Plan: 3 improved. pt had 95% O2 sat on 2 liter of O2, she feel better for her breathing. Continue intravenous Lasix for her exacerbation of congestive heart failure, we will check a PT/INR, hopefully to have thoracentesis done for pt on today. Patient hope to wane off oxygen as possible when she plan to d/c home. Patient had 86% oxygen saturation on room air,Patient complaint shortness of breathing. CTA show no PE, moderate right pleural effusion also suspect fluid overload due to CHF exacerbation. Plan: Patient was already given intravenous Lasix, we will continue intravenous Lasix, patient had echo study about 3 months ago which suspect diastolic heart failure. We consult interventional radiologist, plan to have thoracentesis, plan it on tomorrow. we will NPO in the early. Patient had twice thoracentesis in the previous Admission. after Patient had thoracentesis in the past, clinically patient had significantly improved. Supplemental oxygen as needed. Thank interventional radiologist take care of this patient. (2) Acute exacerbation of CHF (congestive heart failure) Conclusion/Plan: 07/31 improved. BNP is slight reduced. pt had 95% O2 sat on 2 liter of O2. continue Intravenous Lasix, continue laboratory and vital signs monitor Patient had echo study about 3 months ago which suggest diastolic heart failure. CTA show suspected of fluid overloaded/CHF. pt report orthopnea. BNP slight elevated. We will continue intravenous diuretics Lasix for patient, Daily weight, And fluids restriction. (3) Pleural effusion Conclusion/Plan: 07/31 We have thoracentesis to release patient's respiratory distress. order new PT/INR. consult IR for thoracentesis. CTA show moderate right pleural effusion. patient had twice right thoracentesis in the past. We plan to have thoracentesis on tomorrow, we will recheck a PT/INR. (4) Lower extremity edema Conclusion/Plan: 07/31 good improved for her leg edema, Continue intravenous Lasix. Patient had a history of lower extremity edema, acute on chronic, Which is li daniel worsening by fluid overloaded and exacerbation of the CHF. We will continue intravenous diuretics, We will order PT and OT for patient. (5) Chronic atrial fibrillation Conclusion/Plan: Stable HR. Resume home metoprolol, Cardizem, and Eliquis after thoracentesis. Continue telemetry and vital signs monitor patient (6) Breast cancer Conclusion/Plan: Patient had a history of breast cancer, patient had chemo, radiation, immunotherapy. CTA show right breast wall mass and adenopathy. Patient may continue follow-up with her oncology as outpatient. (2) Acute exacerbation of CHF (congestive heart failure) Qualifiers: Heart failure type: unspecified Qualified Code(s): I50.9 - Heart failure, unspecified - Current Meds Current Meds: Current Medications Generic Name Dose Route Start Last Admin Trade Name Freq PRN Reason Stop Dose Admin Furosemide 40 mg 07/30/21 18:00 07/31/21 06:07 Furosemide 40 Mg/4 Ml Vial IVP 40 mg BIDDIURETIC LORENA Administration Metoprolol Tartrate 37.5 mg 07/30/21 21:00 07/30/21 20:49 Metoprolol Tartrate 25 Mg Tablet PO 37.5 mg BID LORENA Administration Sodium Chloride 10 ml 07/31/21 01:00 07/31/21 00:02 Sodium Chloride Flush 0.9% 10 Ml Syringe IVP 10 ml 0100,0900,1700 LORENA Administration - Lab Result Fish Bone Diagrams: 07/31/21 05:25 07/31/21 05:25 - Additional Planning My Orders: My Active Orders 07/30/21 17:14 Activity Orders [RC] Q2HR IO [RC] IOSHIFT Initiate Bowel Care Protocol [RC] .protocol Initiate Line Care Protocol [RC] QSHIFT Initiate Personal Care Protoco [RC] .protocol Telemetry- [RC] Q4HR Vital Signs [RC] Q4HR Acetaminophen [Tylenol] 650 mg PO Q4HR PRN Ondansetron Inj [Zofran Inj] 4 mg IVP Q6HR PRN Sodium Chloride Flush 0.9% [Normal Saline Flush 0.9%] 10 ml IVP PRN PRN Code Status [OTHERS] Routine Condition of Patient [OTHERS] Routine DVT Prophylaxis [OTHERS] Routine 07/30/21 17:16 IV Insert [RC] .ONCE 07/30/21 17:17 SCDs [RC] QSHIFT 07/30/21 17:48 Code Status [OTHERS] Routine 07/30/21 18:00 FUROSEMIDE INJ 40mg VIAL [LASIX INJ 40 mg VIAL] 40 mg IVP BIDDIURETIC 07/30/21 18:13 Daily Weight [RC] 0600 07/30/21 21:00 Metoprolol Tartrate [Lopressor] 37.5 mg PO BID 07/31/21 00:01 NPO except Meds at Midnight [DIET] 07/31/21 01:00 Sodium Chloride Flush 0.9% [Normal Saline Flush 0.9%] 10 ml IVP 0100,0900,1700 07/31/21 07:33 Thoracentesis Puncture [US] Stat 07/31/21 09:00 diltiaZEM CD [Cardizem Cd] 240 mg PO DAILY 07/31/21 21:00 Apixaban [Eliquis] 5 mg PO BID 08/01/21 05:00 BMP - BASIC METABOLIC PANEL [CHEM] DAILYLAB BNP - B-NATRIURETIC PEPTIDE [IAI] DAILYLAB CBC - COMP BLD CT W/AUTO DIFF [HEME] DAILYLAB 08/02/21 05:00 BMP - BASIC METABOLIC PANEL [CHEM] DAILYLAB BNP - B-NATRIURETIC PEPTIDE [IAI] DAILYLAB CBC - COMP BLD CT W/AUTO DIFF [HEME] DAILYLAB 08/03/21 05:00 BMP - BASIC METABOLIC PANEL [CHEM] DAILYLAB CBC - COMP BLD CT W/AUTO DIFF [HEME] DAILYLAB 08/04/21 05:00 BMP - BASIC METABOLIC PANEL [CHEM] DAILYLAB CBC - COMP BLD CT W/AUTO DIFF [HEME] DAILYLAB 08/05/21 05:00 BMP - BASIC METABOLIC PANEL [CHEM] DAILYLAB CBC - COMP BLD CT W/AUTO DIFF [HEME] DAILYLAB Subjective - Subjective Patient Reports: Feeling Better, Resting Comfortably Objective Vital Signs: Vital Signs - 24 hr 07/30/21 07/30/21 07/30/21 14:35 14:43 15:10 Temperature 36.1 C L Heart Rate 50 L 87 Heart Rate [ Brachial] Respiratory 25 H 21 30 H Rate Blood Pressure 145/71 H Blood Pressure [Left Brachial artery] O2 Saturation 86 L 92 93 07/30/21 07/30/21 07/30/21 17:00 18:43 20:31 Temperature 36.4 C L 36.5 C Heart Rate 86 Heart Rate [ 68 91 Brachial] Respiratory 23 24 22 Rate Blood Pressure 123/65 Blood Pressure 152/68 H 139/64 H [Left Brachial artery] O2 Saturation 100 96 95 07/30/21 07/31/2107/31/22 20:49 00:36 06:00 Temperature 36.6 C 36.7 C Heart Rate Heart Rate [ 82 79 Brachial] Respiratory 23 20 Rate Blood Pressure 139/64 H Blood Pressure 118/66 147/81 H [Left Brachial artery] O2 Saturation 95 97 07/31/21 07:39 Temperature 36.7 C Heart Rate Heart Rate [ 86 Brachial] Respiratory 22 Rate Blood Pressure Blood Pressure 118/62 [Left Brachial artery] O2 Saturation 98 Oxygen O2 Source Nasal cannula Oxygen Flow Rate 3 I&O (Last 24 Hrs): Intake and Output Totals x24h 07/29/21 07/30/21 07/31/21 23:59 23:59 23:59 Intake Total 300 0 Balance 300 0 General: Alert, Oriented x3, Cooperative, No acute distress HEENT: Atraumatic Neck: Supple Lymphatic: no adenopathy Neuro: Alert, Non Focal, Oriented Times 3 Cardiovascular: Regular rate, Normal S1, Normal S2 Respiratory: Chest non-tender, No respiratory distress Abdomen: Normal bowel sounds, Soft Extremities: Normal pulses - Results Results: Laboratory Results WBC 6.1 x10^3/uL (4.8-10.8) 07/31/21 05:25 RBC 4.30 10^6/uL (4.20-5.40) 07/31/21 05:25 Hgb 11.7 g/dL (12.0-16.0) L 07/31/21 05:25 Hct 36.2 % (37.0-47.0) L 07/31/21 05:25 MCV 84.2 fL (81.0-99.0) 07/31/21 05:25 MCH 27.2 pg (27.0-31.0) 07/31/21 05:25 MCHC 32.3 g/dL (32.0-36.0) 07/31/21 05:25 RDW 23.9 % (12.0-15.0) H 07/31/21 05:25 Plt Count 361 10^3/uL (130-450) 07/31/21 05:25 MPV 11.1 fL (7.9-10.8) H 07/31/21 05:25 Neut # (Auto) 4.1 10^3/uL (1.5-6.6) 07/31/21 05:25 Lymph # (Auto) 1.1 10^3/uL (1.5-3.5) L 07/31/21 05:25 Person # (Auto) 0.6 10^3/uL (0.0-1.0) 07/31/21 05:25 Eos # (Auto) 0.2 10^3/uL (0.0-0.7) 07/31/21 05:25 Baso # (Auto) 0.1 10^3/uL (0.0-0.1) 07/31/21 05:25 Absolute Nucleated RBC 0.00 x10^3/uL 07/31/21 05:25 Nucleated RBC % 0.0 /100WBC 07/31/21 05:25 Manual Slide Review Indicated 07/31/21 05:25 WBC Morphology NORMAL APPEARANCE (NORMAL) 07/31/21 05:25 Platelet Estimate NORMAL (130-450,000) (NORMAL) 07/31/21 05:25 Platelet Morphology NORMAL APPEARANCE (NORMAL) 07/31/21 05:25 RBC Morph Micro Appear 3+ ANISOCYTOSIS (NORMAL) 07/31/21 05:25 PT 15.9 secs (9.9-12.6) H 07/30/21 14:44 INR 1.4 (0.8-1.2) H 07/30/21 14:44 Sodium 138 mmol/L (135-145) 07/31/21 05:25 Potassium 4.1 mmol/L (3.5-5.0) 07/31/21 05:25 Chloride 97 mmol/L (101-111) L 07/31/21 05:25 Carbon Dioxide 30 mmol/L (21-32) 07/31/21 05:25 Anion Gap 11.0 (6-13) 07/31/21 05:25 BUN 23 mg/dL (6-20) H 07/31/21 05:25 Creatinine 0.8 mg/dL (0.4-1.0) 07/31/21 05:25 Estimated GFR (MDRD) 69 (>89) L 07/31/21 05:25 Glucose 110 mg/dL (70-100) H 07/31/21 05:25 Calcium 9.5 mg/dL (8.5-10.3) 07/31/21 05:25 Total Bilirubin 0.7 mg/dL (0.2-1.0) 07/30/21 15:09 AST 23 IU/L (10-42) 07/30/21 15:09 ALT 27 IU/L (10-60) 07/30/21 15:09 Alkaline Phosphatase 35 IU/L (42-121) L 07/30/21 15:09 B-Natriuretic Peptide 113 pg/mL (5-100) H 07/31/21 05:25 Total Protein 7.5 g/dL (6.7-8.2) 07/30/21 15:09 Albumin 4.2 g/dL (3.2-5.5) 07/30/21 15:09 Globulin 3.3 g/dL (2.1-4.2) 07/30/21 15:09 Albumin/Globulin Ratio 1.3 (1.0-2.2) 07/30/21 15:09 Lipase 30 U/L (22-51) 07/30/21 15:09 Nasal Adenovirus (PCR) NOT DETECTED 07/30/21 16:25 Nasal B. parapertussis DNA (PCR) NOT DETECTED 07/30/21 16:25 Nasal Coronavir 229E PCR NOT DETECTED 07/30/21 16:25 Nasal Coronavir HKU1 PCR NOT DETECTED 07/30/21 16:25 Nasal Coronavir NL63 PCR NOT DETECTED 07/30/21 16:25 Nasal Coronavir OC43 PCR NOT DETECTED 07/30/21 16:25 Nasal Enterovir/Rhinovir PCR NOT DETECTED 07/30/21 16:25 Nasal Influenza B PCR NOT DETECTED 07/30/21 16:25 Nasal Influenza A PCR NOT DETECTED 07/30/21 16:25 Nasal Parainfluen 1 PCR NOT DETECTED 07/30/21 16:25 Nasal Parainfluen 2 PCR NOT DETECTED 07/30/21 16:25 Nasal Parainfluen 3 PCR NOT DETECTED 07/30/21 16:25 Nasal Parainfluen 4 PCR NOT DETECTED 07/30/21 16:25 Nasal RSV (PCR) NOT DETECTED 07/30/21 16:25 Nasal B.pertussis DNA PCR NOT DETECTED 07/30/21 16:25 Nasal C.pneumoniae (PCR) NOT DETECTED 07/30/21 16:25 Omar Human Metapneumo PCR NOT DETECTED 07/30/21 16:25 Nasal M.pneumoniae (PCR) NOT DETECTED 07/30/21 16:25 Nasal SARS-CoV-2 (PCR) NOT DETECTED 07/30/21 16:25 - Procedures Procedures: Procedures CATARAC PHACOEMULS/ASPIR (01/03/13) DRAINAGE OF RIGHT PLEURAL CAVITY, PERCUTANEOUS APPROACH (06/27/21) INSERT LENS AT CATAR EXT (01/03/13) ABX Reporting Has patient been on IV antibiotics over the past 48 hours?: No Current Medications - Current Medications Current Medications: Active Medications Acetaminophen (Acetaminophen 325 Mg Tablet) 650 mg PO Q4HR PRN PRN Reason: Pain 1 to 4 Apixaban (Apixaban 5 Mg Tablet) 5 mg PO BID [facility] Diltiazem HCl (Diltiazem Cd 240 Mg Capsule) 240 mg PO DAILY [facility] Last Admin: 07/31/21 08:36 Dose: 240 mg Furosemide (Furosemide 40 Mg/4 Ml Vial) 40 mg IVP BIDDIURETIC [facility] Last Admin: 07/31/21 06:07 Dose: 40 mg Metoprolol Tartrate (Metoprolol Tartrate 25 Mg Tablet) 37.5 mg PO BID [facility] Last Admin: 07/31/21 08:35 Dose: 37.5 mg Ondansetron HCl (Ondansetron 4 Mg/2 Ml Vial) 4 mg IVP Q6HR PRN PRN Reason: Nausea / Vomiting Sodium Chloride (Sodium Chloride Flush 0.9% 10 Ml Syringe) 10 ml IVP PRN PRN PRN Reason: NEEDED PER PROVIDER ORDERS Sodium Chloride (Sodium Chloride Flush 0.9% 10 Ml Syringe) 10 ml IVP 0100,0900,1700 [facility] Last Admin: 07/31/21 08:36 Dose: 10 ml
[2021-07-31] MEDS: METOPROLOL TARTRATE 25 MG TABLET PO SCH ×2 (08:35→21:40)
[2021-07-31] MEDS: diltiaZEM CD 240 MG CAPSULE PO SCH (08:36)
[2021-07-31 09:21] LABS: INR 1.2 (0.8-1.2); PT - PROTHROMBIN TIME 13.5 secs (9.9-12.6)
[2021-07-31] MEDS ORDERED: lidocaine 1% 20 ML MDV ONE (10:49)
--- NOTE | 2021-07-31 13:40 | XRAY Report ---
PROCEDURE: Post Thoracentesis 1V CXR INDICATIONS: POST THORACENTESIS TECHNIQUE: One view of the chest was acquired. COMPARISON: Chest x-ray 07/30/2021, chest CT 07/30/2021. FINDINGS: Surgical changes and devices: Left chest wall subclavian Port-A-Cath redemonstrated with tip projecti ng over the superior vena cava.. Lungs and pleura: No definite evidence of pneumothorax with evaluation slightly limited by patient ro tation. There is a decreased but residual small right pleural effusion. A small left pleural effusion appears unchanged. Associated bibasilar opacities are demonstrated consistent with compressive atele ctasis or consolidation. There is also persistent pulmonary edema. Mediastinum: Heart size is normal. There is increased prominence of the mediastinal contours seconda ry to rotation. Bones and chest wall: No suspicious bony lesions. Overlying soft tissues appear unremarkable. IMPRESSION: 1. No evidence of pneumothorax. 2. Decreased but persistent right pleural effusion. 3. Unchanged small left pleural effusion. 4. Persistent bibasilar compressive atelectasis or consolidation and pulmonary edema. Reviewed by: Marcelo Alonso MD on 07/31/2021 1:38 PM PST Approved by: Marcelo Alonso MD on 07/31/2021 1:38 PM PST Station ID: [id number]
[2021-07-31] MEDS: SODIUM CHLORIDE FLUSH 0.9% 10 ML SYRINGE IVP PRN (13:50)
--- NOTE | 2021-07-31 16:03 | Ultrasound Report ---
PROCEDURE: Thoracentesis Puncture INDICATIONS: thoracentesis, right pleural effusion, breast canc TECHNIQUE: The indications, alternatives, benefits, risks, and complications of the procedure were explained to the patient. Written informed consent was obtained and placed in the chart. The chest was examined sonographically, and an appropriate site was chosen for thoracentesis. The skin was prepared and sophie ped in the usual sterile fashion, and 1% lidocaine was infiltrated from the skin down through the ple ural surface. A 19-gauge catheter-covered needle was then introduced into the pleural space, the cat heter was advanced and the needle was withdrawn, and thereafter pleural fluid was aspirated. The cat heter was then removed and a dressing was applied. COMPARISON: Chest CT 07/30/2021, chest x-ray 07/30/2021. FINDINGS: Access site: Right hemithorax. Needle: One-Step centesis catheter with introducer needle. Fluid volume and description: 1.2 L of lourdes-colored fluid Fluid sent for diagnostic testing: As per orders. Medications: 1% lidocaine for local anaesthesia. Complications: None; post-procedural chest radiograph is pending to assess for pneumothorax. IMPRESSION: Successful ultrasound-guided thoracentesis. Reviewed by: Marcelo Alonso MD on 07/31/2021 4:02 PM PST Approved by: Marcelo Alonso MD on 07/31/2021 4:02 PM PST Station ID: [id number]
[2021-07-31] MEDS: APIXABAN 5 MG TABLET PO SCH (21:40)
[2021-08-01] MEDS: SODIUM CHLORIDE FLUSH 0.9% 10 ML SYRINGE IVP SCH ×3 (00:01→16:42)
[2021-08-01 06:31] LABS: BASOPHILS # (AUTO) 0.1 10^3/uL (0.0-0.1); BASOPHILS % (AUTO) 0.6 %; EOSINOPHILS # (AUTO) 0.2 10^3/uL (0.0-0.7); EOSINOPHILS % (AUTO) 1.8 %; HCT - HEMATOCRIT 35.4 % (37.0-47.0); HGB - HEMOGLOBIN 11.7 g/dL (12.0-16.0); LYMPHOCYTES # (AUTO) 1.1 10^3/uL (1.5-3.5); MEAN CORPUSCULAR HEMOGLOBIN 27.3 pg (27.0-31.0); MEAN CORPUSCULAR HGB CONC 33.1 g/dL (32.0-36.0); MEAN CORPUSCULAR VOLUME 82.7 fL (81.0-99.0); MEAN PLATELET VOLUME 11.3 fL (7.9-10.8); MONOCYTES # (AUTO) 0.6 10^3/uL (0.0-1.0); MONOCYTES % (AUTO) 7.4 %; NEUTROPHILS # (AUTO) 6.4 10^3/uL (1.5-6.6); NEUTROPHILS % (AUTO) 76.8 %; PLT - PLATELET COUNT 373 10^3/uL (130-450); RED BLOOD COUNT 4.28 10^6/uL (4.20-5.40); RED CELL DISTRIBUTION WIDTH 23.9 % (12.0-15.0); WHITE BLOOD COUNT 8.4 x10^3/uL (4.8-10.8)
[2021-08-01 06:34] LABS: SLIDE REVIEW? Indicated
[2021-08-01 06:37] LABS: CALCIUM 9.2 mg/dL (8.5-10.3); CREATININE 0.8 mg/dL (0.4-1.0); POTASSIUM 3.7 mmol/L (3.5-5.0)
[2021-08-01] MEDS: FUROSEMIDE 40 MG/4 ML VIAL IVP SCH ×2 (06:51→14:23)
[2021-08-01 07:49] LABS: PLATELET ESTIMATE, MANUAL NORMAL (130-450,000) (NORMAL); PLATELET MORPHOLOGY NORMAL APPEARANCE (NORMAL)
[2021-08-01 07:50] LABS: WBC MORPHOLOGY (MULTIPLE) NORMAL APPEARANCE (NORMAL)
[2021-08-01] MEDS: METOPROLOL TARTRATE 25 MG TABLET PO SCH ×2 (08:13→20:33)
[2021-08-01] MEDS: diltiaZEM CD 240 MG CAPSULE PO SCH (08:16)
[2021-08-01] MEDS: APIXABAN 5 MG TABLET PO SCH ×2 (08:16→20:34)
--- NOTE | 2021-08-01 08:42 | PHARMACY PROGRESS NOTE ---
- Best Possible Medication History Admit Date and Time: 07/31/21 1008 Processed by: Pharmacy Medication History completed: Yes Secondary Source(s): Pharmacy records, Insurance records As the person ultimately responsible for medication therapy, providers are able to order a medication from an existing home medication list in [facility] via the "Reconcile Routine" prior to Confirmation of that medication by it technical support specialist. Such practice is discouraged except when the physician, in their clinical judgment, deems that a medical need exists for a medication without regard to previous use.
--- NOTE | 2021-08-01 09:21 | PROVIDER PROGRESS NOTE ---
Assessment/Plan - Problem List (1) Pleural effusion Assessment/Plan: Suspect this may be secondary to patient's breast cancer. She underwent Therapeutic Thoracentesis on 07/31/2021. 1.2 L extracted. Patient breathing more comfortably. Currently breathing comfortably on room air with oxygen saturation at 95%. She is on furosemide 40 mg IV twice daily Anticipating discharge on 08/02/21 (2) Hypoxia Assessment/Plan: Possibly secondary to pleural effusion and mild pulmonary edema. Patient is status post therapeutic thoracentesis. Also on Lasix 40 mg IV twice daily. Patient breathing comfortably on room air with oxygen saturation at 95%. (3) Chronic atrial fibrillation Assessment/Plan: On diltiazem CD 240 mg p.o. daily. On metoprolol tartrate 37.5 mg p.o. twice daily. On Eliquis 5 mg p.o. twice daily. (4) Breast cancer Assessment/Plan: She underwent chemotherapy, radiotherapy and immunotherapy in the past. Right breast/chest wall mass noted on CT done 07/30/2021. Patient to follow-up with her oncologist. (5) Congestive heart failure Qualifiers: Heart failure type: other Qualified Code(s): I50.9 - Heart failure, unspecified Assessment/Plan: Not in exacerbation. On Lasix 40 mg IV twice daily. On metoprolol tartrate 37.5 mg p.o. twice daily - Current Meds Current Meds: Current Medications Generic Name Dose Route Start Last Admin Trade Name Freq PRN Reason Stop Dose Admin Apixaban 5 mg 07/31/21 21:00 08/01/21 08:16 Apixaban 5 Mg Tablet PO 5 mg BID LORENA Administration Diltiazem HCl 240 mg 07/31/21 09:00 08/01/21 08:16 Diltiazem Cd 240 Mg Capsule PO 240 mg DAILY LORENA Administration Furosemide 40 mg 07/30/21 18:00 08/01/21 06:51 Furosemide 40 Mg/4 Ml Vial IVP 40 mg BIDDIURETIC LORENA Administration Metoprolol Tartrate 37.5 mg 07/30/21 21:00 08/01/21 08:13 Metoprolol Tartrate 25 Mg Tablet PO 37.5 mg BID LORENA Administration Sodium Chloride 10 ml 07/30/21 17:14 07/31/21 13:50 Sodium Chloride Flush 0.9% 10 Ml Syringe IVP 10 ml PRN PRN Administration NEEDED PER PROVIDER ORDERS Sodium Chloride 10 ml 07/31/21 01:00 08/01/21 08:16 Sodium Chloride Flush 0.9% 10 Ml Syringe IVP 10 ml 0100,0900,1700 LORENA Administration - Lab Result Fish Bone Diagrams: 08/01/21 06:22 08/01/21 06:22 Subjective - Subjective Patient Reports: Other (She was seated in the bedside chair having breakfast at time of visit. She denied any significant complaints. However on room air her oxygen fluctuates between 89 and 92%. She does not appear dyspneic. She has mild crackles on auscultation of lungs.) Objective Vital Signs: Vital Signs - 24 hr 07/31/21 07/31/21 07/31/21 10:05 10:53 13:02 Temperature 36.4 C L Heart Rate [ 100 Activity] Heart Rate [ 78 Brachial] Heart Rate [ 101 H Supine] Respiratory 19 Rate Blood Pressure Blood Pressure 121/69 [Activity] Blood Pressure 117/56 L [Left Brachial artery] Blood Pressure 108/56 L [Supine] O2 Saturation 94 95 07/31/21 07/31/21 07/31/21 13:19 16:49 20:35 Temperature 36.5 C 36.5 C Heart Rate [ Activity] Heart Rate [ 88 94 Brachial] Heart Rate [ Supine] Respiratory 21 16 17 Rate Blood Pressure Blood Pressure [Activity] Blood Pressure 106/81 H 104/54 L [Left Brachial artery] Blood Pressure [Supine] O2 Saturation 92 95 93 07/31/21 08/01/21 08/01/21 21:40 00:15 05:00 Temperature 36.5 C 36.5 C Heart Rate [ Activity] Heart Rate [ 87 83 Brachial] Heart Rate [ Supine] Respiratory 19 18 Rate Blood Pressure 104/54 L Blood Pressure [Activity] Blood Pressure 112/62 121/58 L [Left Brachial artery] Blood Pressure [Supine] O2 Saturation 90 L 90 L 08/01/21 08/01/21 08:13 08:30 Temperature 36.5 C Heart Rate [ Activity] Heart Rate [ 86 Brachial] Heart Rate [ Supine] Respiratory 18 Rate Blood Pressure 126/70 Blood Pressure [Activity] Blood Pressure 127/54 L [Left Brachial artery] Blood Pressure [Supine] O2 Saturation 92 Oxygen O2 Source Room air Oxygen Flow Rate 3 I&O (Last 24 Hrs): Intake and Output Totals x24h 07/30/21 07/31/21 08/01/21 23:59 23:59 23:59 Intake Total 300 90 240 Output Total 400 Balance 300 -310 240 General: Alert, Oriented x3, No acute distress HEENT: PERRLA, EOMI Neck: Supple, No JVD Neuro: Alert, Oriented Times 3 Cardiovascular: Regular rate, Normal S1, Normal S2 Respiratory: Chest non-tender, No respiratory distress, Other (Mild crackles in lung bases) Abdomen: Normal bowel sounds, Soft, No tenderness, No masses Extremities: No clubbing, No cyanosis, No edema, No tenderness/swelling Skin: No rashes, No breakdown, No significant lesion - Results Results: Laboratory Results WBC 8.4 x10^3/uL (4.8-10.8) 08/01/21 06:22 RBC 4.28 10^6/uL (4.20-5.40) 08/01/21 06:22 Hgb 11.7 g/dL (12.0-16.0) L 08/01/21 06:22 Hct 35.4 % (37.0-47.0) L 08/01/21 06:22 MCV 82.7 fL (81.0-99.0) 08/01/21 06:22 MCH 27.3 pg (27.0-31.0) 08/01/21 06:22 MCHC 33.1 g/dL (32.0-36.0) 08/01/21 06:22 RDW 23.9 % (12.0-15.0) H 08/01/21 06:22 Plt Count 373 10^3/uL (130-450) 08/01/21 06:22 MPV 11.3 fL (7.9-10.8) H 08/01/21 06:22 Neut # (Auto) 6.4 10^3/uL (1.5-6.6) 08/01/21 06:22 Lymph # (Auto) 1.1 10^3/uL (1.5-3.5) L 08/01/21 06:22 Vance # (Auto) 0.6 10^3/uL (0.0-1.0) 08/01/21 06:22 Eos # (Auto) 0.2 10^3/uL (0.0-0.7) 08/01/21 06:22 Baso # (Auto) 0.1 10^3/uL (0.0-0.1) 08/01/21 06:22 Absolute Nucleated RBC 0.00 x10^3/uL 08/01/21 06:22 Nucleated RBC % 0.0 /100WBC 08/01/21 06:22 Manual Slide Review Indicated 08/01/21 06:22 WBC Morphology NORMAL APPEARANCE (NORMAL) 08/01/21 06:22 Platelet Estimate NORMAL (130-450,000) (NORMAL) 08/01/21 06:22 Platelet Morphology NORMAL APPEARANCE (NORMAL) 08/01/21 06:22 RBC Morph Micro Appear 3+ ANISOCYTOSIS (NORMAL) 1+ HYPOCHROMASIA (NORMAL) 2+ TARGET CELLS (NORMAL) 08/01/21 06:22 RBC Morph Micro Appear 3+ ANISOCYTOSIS (NORMAL) 1+ HYPOCHROMASIA (NORMAL) 2+ TARGET CELLS (NORMAL) 08/01/21 06:22 RBC Morph Micro Appear 3+ ANISOCYTOSIS (NORMAL) 1+ HYPOCHROMASIA (NORMAL) 2+ TARGET CELLS (NORMAL) 08/01/21 06:22 PT 13.5 secs (9.9-12.6) H 07/31/21 09:09 INR 1.2 (0.8-1.2) 07/31/21 09:09 Sodium 136 mmol/L (135-145) 08/01/21 06:22 Potassium 3.7 mmol/L (3.5-5.0) 08/01/21 06:22 Chloride 96 mmol/L (101-111) L 08/01/21 06:22 Carbon Dioxide 32 mmol/L (21-32) 08/01/21 06:22 Anion Gap 8.0 (6-13) 08/01/21 06:22 BUN 27 mg/dL (6-20) H 08/01/21 06:22 Creatinine 0.8 mg/dL (0.4-1.0) 08/01/21 06:22 Estimated GFR (MDRD) 69 (>89) L 08/01/21 06:22 Glucose 123 mg/dL (70-100) H 08/01/21 06:22 Calcium 9.2 mg/dL (8.5-10.3) 08/01/21 06:22 Total Bilirubin 0.7 mg/dL (0.2-1.0) 07/30/21 15:09 AST 23 IU/L (10-42) 07/30/21 15:09 ALT 27 IU/L (10-60) 07/30/21 15:09 Alkaline Phosphatase 35 IU/L (42-121) L 07/30/21 15:09 B-Natriuretic Peptide 97 pg/mL (5-100) 08/01/21 06:22 Total Protein 7.5 g/dL (6.7-8.2) 07/30/21 15:09 Albumin 4.2 g/dL (3.2-5.5) 07/30/21 15:09 Globulin 3.3 g/dL (2.1-4.2) 07/30/21 15:09 Albumin/Globulin Ratio 1.3 (1.0-2.2) 07/30/21 15:09 Lipase 30 U/L (22-51) 07/30/21 15:09 Nasal Adenovirus (PCR) NOT DETECTED 07/30/21 16:25 Nasal B. parapertussis DNA (PCR) NOT DETECTED 07/30/21 16:25 Nasal Coronavir 229E PCR NOT DETECTED 07/30/21 16:25 Nasal Coronavir HKU1 PCR NOT DETECTED 07/30/21 16:25 Nasal Coronavir NL63 PCR NOT DETECTED 07/30/21 16:25 Nasal Coronavir OC43 PCR NOT DETECTED 07/30/21 16:25 Nasal Enterovir/Rhinovir PCR NOT DETECTED 07/30/21 16:25 Nasal Influenza B PCR NOT DETECTED 07/30/21 16:25 Nasal Influenza A PCR NOT DETECTED 07/30/21 16:25 Nasal Parainfluen 1 PCR NOT DETECTED 07/30/21 16:25 Nasal Parainfluen 2 PCR NOT DETECTED 07/30/21 16:25 Nasal Parainfluen 3 PCR NOT DETECTED 07/30/21 16:25 Nasal Parainfluen 4 PCR NOT DETECTED 07/30/21 16:25 Nasal RSV (PCR) NOT DETECTED 07/30/21 16:25 Nasal B.pertussis DNA PCR NOT DETECTED 07/30/21 16:25 Nasal C.pneumoniae (PCR) NOT DETECTED 07/30/21 16:25 Omar Human Metapneumo PCR NOT DETECTED 07/30/21 16:25 Nasal M.pneumoniae (PCR) NOT DETECTED 07/30/21 16:25 Nasal SARS-CoV-2 (PCR) NOT DETECTED 07/30/21 16:25 - Procedures Procedures: Procedures CATARAC PHACOEMULS/ASPIR (01/03/13) DRAINAGE OF RIGHT PLEURAL CAVITY, PERCUTANEOUS APPROACH (06/27/21) INSERT LENS AT CATAR EXT (01/03/13) ABX Reporting Has patient been on IV antibiotics over the past 48 hours?: No
[2021-08-01] MEDS: SODIUM CHLORIDE FLUSH 0.9% 10 ML SYRINGE IVP PRN (14:28)
[2021-08-02] MEDS: SODIUM CHLORIDE FLUSH 0.9% 10 ML SYRINGE IVP SCH ×2 (00:26→09:05)
[2021-08-02 05:03] LABS: BASOPHILS % (AUTO) 0.7 %; EOSINOPHILS # (AUTO) 0.2 10^3/uL (0.0-0.7); EOSINOPHILS % (AUTO) 3.2 %; HCT - HEMATOCRIT 36.8 % (37.0-47.0); LYMPHOCYTES # (AUTO) 1.2 10^3/uL (1.5-3.5); LYMPHOCYTES % (AUTO) 20.5 %; MEAN CORPUSCULAR HEMOGLOBIN 27.3 pg (27.0-31.0); MEAN CORPUSCULAR HGB CONC 32.6 g/dL (32.0-36.0); MEAN CORPUSCULAR VOLUME 83.6 fL (81.0-99.0); MEAN PLATELET VOLUME 11.5 fL (7.9-10.8); MONOCYTES # (AUTO) 0.6 10^3/uL (0.0-1.0); MONOCYTES % (AUTO) 9.8 %; NEUTROPHILS % (AUTO) 65.6 %; PLT - PLATELET COUNT 394 10^3/uL (130-450); RED CELL DISTRIBUTION WIDTH 23.8 % (12.0-15.0)
[2021-08-02 05:04] LABS: SLIDE REVIEW? Indicated
[2021-08-02 05:09] LABS: CALCIUM 9.2 mg/dL (8.5-10.3); CREATININE 0.9 mg/dL (0.4-1.0); POTASSIUM 3.5 mmol/L (3.5-5.0)
[2021-08-02 05:31] LABS: PLATELET ESTIMATE, MANUAL NORMAL (130-450,000) (NORMAL); PLATELET MORPHOLOGY NORMAL APPEARANCE (NORMAL); WBC MORPHOLOGY (MULTIPLE) NORMAL APPEARANCE (NORMAL)
[2021-08-02] MEDS: FUROSEMIDE 40 MG/4 ML VIAL IVP SCH (06:04)
--- NOTE | 2021-08-02 07:39 | DISCHARGE SUMMARY ---
Discharge Summary Admit Date: 07/30/21 Discharge Date: 08/02/21 Discharging Provider: Ezra Ash Primary Care Provider: Jeffrey Coffey Code Status: Do Not Attempt Resuscitation Condition at Discharge: Stable Discharge Disposition: 01 Home, Self Care - DIAGNOSES Admission Diagnoses: Hypoxia Acute exacerbation of CHF Pleural effusion Lower extremity edema Chronic atrial fibrillation Breast cancer Discharge Diagnoses with Status of Each Condition: Pleural effusion: Acute/Recurrent. Improved/ Resolved. s/p therapeutic thoracen tesis Hypoxia: Acute. Improved/Resolved Likely 2/2 to Pleural effusion. Chronic atrial fibrillation: Continue home medication Breast cancer: To follow up with oncologist Congestive heart failure: Not in Exacerbation - HPI History of Present Illness: Per HPI: This is a 80-year-old female with a past medical history significant for hx of Atrial fibrillation on eliquis, CHF, Metastatic breast cancer with chemo and radiation therapy in the past but now is on an immune suppressant, pleural effusion with twice of thoracentesis on the right, anxiety, Thyroid nodule, who present to emergency department for evaluation of shortness of breath. Pt report she has been shortness of breath over the last couple of days and she reach to the point she was hard to get around in her house. pt denies chest pain, fever, chill. She reported she has hx of congestive heart failure, she took Lasix at home. patient normally is not on any home O2. she also report she has more swelling in her legs. she report she feel more shortness of breath on flat at bed, orthopnea. In ER, pt was found to have 86% O2 sat on room air. CTA of the chest show no pulmonary embolism, Modulated right and a small left pleural effusion increased, Suspect fluids overloaded or CHF and bibasilar atelectasis, Right breast chest wall mass, right axillary adenopathy. Given above medical conditions, medical team was called for admission Discussed the care goal with patient, patient state she is DNR - HOSPITAL COURSE Hospital Course: Patient was admitted and treated with Lasix 40 mg IV twice daily. Interventional radiology was consulted and patient underwent a therapeutic thoracentesis with 1.2 L of fluids extracted. She initially required supplemental oxygen at time of admission. Over the course of her hospital stay this was weaned off. On the day of discharge she was breathing comfortably on room air with oxygen saturation at 94%. Heart diltiazem and metoprolol were continued for atrial fibrillation. She also was on Eliquis 5 mg p.o. twice daily. The rest of her hospital stay was fairly unremarkable. She was discharged in stable condition. She is to follow-up with oncology and her primary care physician as needed. - ALLERGIES Allergies/Adverse Reactions: Allergies Allergy/AdvReac Type Severity Reaction Status Date / Time No Known Drug Allergies Allergy Verified 07/30/21 14:39 - MEDICATIONS Home Medications: Ambulatory Orders Medication Instructions Recorded Confirmed Apixaban [Eliquis] 5 mg PO BID #60 tablet 05/30/21 08/01/21 Furosemide [Lasix] 20 mg PO BID #60 tablet 07/01/21 08/01/21 Diltiazem HCl [Cardizem Cd] 360 mg PO DAILY 08/01/21 08/01/21 Metoprolol Tartrate [Lopressor] 25 mg PO BID 08/01/21 08/01/21 - PHYSICAL EXAM AT DISCHARGE General Appearance: positive: No acute distress, Alert Eyes Bilateral: positive: PERRL, EOMI ENT: positive: No signs of dehydration Neck: positive: No JVD, Trachea midline Respiratory: positive: Chest non-tender, No respiratory distress, Other (Mild crackles in lung bases.) Cardiovascular: positive: No murmur, Irregularly irregular Abdomen: positive: Non-tender, No organomegaly, Nml bowel sounds, No distention. negative: Guarding, Rebound Back: positive: Nml inspection Neurologic/Psychiatric: positive: Oriented x3, Mood/affect nml (15) - LABS Result Diagrams: 08/02/21 04:28 08/02/21 04:28
--- NOTE | 2021-08-02 07:40 | Discharge Plan ---
Discharge Plan Problem Reviewed?: Yes Disposition: Home, Self Care Condition: Stable Diet: Low Sodium Activity Restrictions: Activity as Tolerated Assistance Devices: Walker Weight Bearing: Full Weight Health Concerns: You were admitted on 07/30/2021 with dyspnea. Work-up in the emergency department showed that you had a moderate pleural effusion on the right and a small amount on the left. You required supplemental oxygen at time of presentation. You were admitted and interventional radiology was consulted for therapeutic thoracentesis. This was done on 07/31/2021 and 1.2 L of fluid was extracted. He was also maintained on Lasix IV twice daily during your hospital stay. Over the course of 3 days you diuresed well and by the day of discharge your oxygen saturation was about 94% on room air. Consequently you are being discharged home to continue with your care. The CT scan also commented on right breast/chest wall mass. We advised to follow-up with your oncologist regarding this. We will resume your medications upon discharge. You may follow-up with your primary care physician as needed. The above plan was explained to you, you expressed understanding and are in agreement. You are being discharged in stable condition. No Smoking: If you smoke, Please STOP! Call for help. Follow-up with: Jeffrey Coffey MD [Primary Care Provider] -
[2021-08-02] MEDS: APIXABAN 5 MG TABLET PO SCH (08:10)
[2021-08-02] MEDS: diltiaZEM CD 240 MG CAPSULE PO SCH (08:10)
[2021-08-02] MEDS: METOPROLOL TARTRATE 25 MG TABLET PO SCH (08:11)
[2021-08-02 08:16] VITALS: BP 131/62
== END 2021-08-02 11:23 | disposition home or self-care (01) | DRG 292 ==
LOC: EDUNIT# → ED 14:28 → MS2 17:14 → OBSVTOIN 07-31 10:08
PROVIDERS: ADMIT Nurse Practitioner Gerontology; ATTEND Internal Medicine
DX: I50.9 Heart failure, unspecified (principal); I48.91 Unspecified atrial fibrillation; C50.911 Malignant neoplasm of unspecified site of right female breast; J90 Pleural effusion, not elsewhere classified; I48.20 Chronic atrial fibrillation, unspecified; C79.9 Secondary malignant neoplasm of unspecified site; C50.919 Malignant neoplasm of unspecified site of unspecified female breast; Z20.822 Contact with and (suspected) exposure to COVID-19; R09.02 Hypoxemia; Z66 Do not resuscitate; Z79.01 Long term (current) use of anticoagulants; Z79.899 Other long term (current) drug therapy; Z82.49 Family history of ischemic heart disease and other diseases of the circulatory system; Z92.21 Personal history of antineoplastic chemotherapy; Z92.3 Personal history of irradiation
CPT/HCPCS: 32555; 36415; 71045; 71275; 80048; 80053; 83690; 83880; 85025; 85610; 87070; 87205; 87631; 93005; 96374; 96376; 97161; 97530; 99283; 99285; A9270; Q9967; 0202U

== ENCOUNTER 2021-08-28 11:42 | Outpatient (CLI) | payer MEDICARE, OTHER ==
--- NOTE | 2021-08-28 12:05 | XRAY Report ---
PROCEDURE: Chest 2 View X-Ray INDICATIONS: SEC AND UNSP MALIG NEOPLASM OF AXILLA AND UPPER LI TECHNIQUE: 2 view(s) of the chest. COMPARISON: 07/30/2021.. FINDINGS: Surgical changes and devices: Left chest wall Port-A-Cath is stable.. Lungs and pleura: Moderate right and small left pleural fluid collections. Consolidation in the lung bases bilaterally which could represent compressive atelectasis or pneumonia. Mediastinum: Mediastinal contours are normal. Heart size is normal. Bones and chest wall: No suspicious bony abnormalities. Soft tissues appear unremarkable. IMPRESSION: 1. Moderate right and small left pleural effusions. 2. Bibasilar consolidation compatible with compressive atelectasis versus less likely pneumonia. Plea se correlate with clinical and laboratory data. Reviewed by: Lee Ann Santos MD, PhD on 08/28/2021 12:04 PM PDT Approved by: Lee Ann Santos MD, PhD on 08/28/2021 12:04 PM PDT Station ID: [id number]
== END 2021-08-28 11:43 | disposition home or self-care (01) ==
LOC: DI 11:42
PROVIDERS: ATTEND Internal Medicine Hematology & Oncology
DX: J90 Pleural effusion, not elsewhere classified (principal); R91.8 Other nonspecific abnormal finding of lung field

== ENCOUNTER 2021-09-24 11:47 | Outpatient (CLI) | payer MEDICARE, OTHER ==
--- NOTE | 2021-09-24 12:13 | XRAY Report ---
PROCEDURE: Chest 2 View X-Ray INDICATIONS: ENCOUNTER FOR ANTINEOPLASTIC CHEMOTHERAPY TECHNIQUE: 2 view(s) of the chest. COMPARISON: 08/28/2021 chest radiographs FINDINGS: Left chest wall central venous port catheter is in similar position. There are small bilateral pleura l effusions with overlying consolidation, not significantly changed when compared with the prior stud y. Increased interstitial markings in both lungs. IMPRESSION: Small bilateral pleural effusions with overlying consolidation, potentially pneumonia. Increased interstitial markings in both lungs may represent pulmonary edema although there are other differential considerations. Reviewed by: Gordy Chau MD on 09/24/2021 12:12 PM PDT Approved by: Gordy Chau MD on 09/24/2021 12:12 PM PDT Station ID: [id number]
== END 2021-09-24 11:48 | disposition home or self-care (01) ==
LOC: DI 11:47
PROVIDERS: ATTEND Internal Medicine Hematology & Oncology
DX: J90 Pleural effusion, not elsewhere classified (principal); R91.8 Other nonspecific abnormal finding of lung field; C50.811 Malignant neoplasm of overlapping sites of right female breast

== ENCOUNTER 2021-11-13 11:53 | Outpatient (CLI) | payer MEDICARE, OTHER ==
--- NOTE | 2021-11-13 16:15 | XRAY Report ---
PROCEDURE: Chest 2 View X-Ray INDICATIONS: CORTEZ TECHNIQUE: 2 view(s) of the chest. COMPARISON: 09/24/2021.. FINDINGS: Surgical changes and devices: Left chest wall Port-A-Cath is stable. Lungs and pleura: Small right-sided pleural fluid collection not significantly changed compared to pr ior examination. Left-sided pleural fluid collection is resolved. Mild bilateral interstitial promine nce. Mediastinum: Mediastinal contours are normal. Heart is enlarged. Bones and chest wall: No suspicious bony abnormalities. Soft tissues appear unremarkable. S-shaped scoliosis of the thoracolumbar spine. IMPRESSION: 1. Small right-sided pleural effusion. 2. Bilateral interstitial prominence which could represent chronic lung disease, pulmonary edema or a typical pneumonia. 3. Cardiomegaly. Reviewed by: Lee Ann Santos MD, PhD on 11/13/2021 4:14 PM PDT Approved by: Lee Ann Santos MD, PhD on 11/13/2021 4:14 PM PDT Station ID: [id number]
== END 2021-11-13 11:54 | disposition home or self-care (01) ==
LOC: DI 11:53
PROVIDERS: ATTEND Internal Medicine Cardiovascular Disease
DX: J90 Pleural effusion, not elsewhere classified (principal); I51.7 Cardiomegaly

== ENCOUNTER 2021-12-08 13:55 | Outpatient (CLI) | payer MEDICARE, OTHER ==
--- NOTE | 2021-12-08 16:57 | XRAY Report ---
PROCEDURE: Chest 2 View X-Ray INDICATIONS: DYSPNEA ON EXERTION TECHNIQUE: 2 view(s) of the chest. COMPARISON: Chest radiographs and CT chest 11/13/2021. FINDINGS: Surgical changes and devices: Left chest port is seen with catheter tip projecting over the superior vena cava.. Lungs and pleura: Small left pleural effusion with atelectasis of the right lung base. No pneumothora x. Mediastinum: Mediastinal contours are normal. Heart size is stable. Bones and chest wall: No suspicious bony abnormalities. Soft tissues appear unremarkable. IMPRESSION: Small right pleural effusion with atelectasis of the lung base. Stable mild cardiomegaly . Reviewed by: Arthur Howard MD on 12/08/2021 4:56 PM PDT Approved by: Arthur Howard MD on 12/08/2021 4:56 PM PDT Station ID: [id number]
== END 2021-12-08 13:56 | disposition home or self-care (01) ==
LOC: DI.N 13:55
PROVIDERS: ATTEND Internal Medicine Cardiovascular Disease
DX: J98.11 Atelectasis (principal); J90 Pleural effusion, not elsewhere classified; I51.7 Cardiomegaly; I50.32 Chronic diastolic (congestive) heart failure; R06.00 Dyspnea, unspecified
CPT/HCPCS: 36415; 80048; 83880

== ENCOUNTER 2022-01-20 13:46 | Outpatient (CLI) | payer MEDICARE, OTHER ==
[2022-01-20 17:48] LABS: POTASSIUM 4.8 mmol/L (3.5-5.0)
== END 2022-01-20 13:47 | disposition home or self-care (01) ==
LOC: LAB.N 13:46
PROVIDERS: ATTEND Internal Medicine Cardiovascular Disease
DX: I10 Essential (primary) hypertension (principal); R06.00 Dyspnea, unspecified
CPT/HCPCS: 36415; 80048; 83880

== ENCOUNTER 2022-01-20 13:49 | Outpatient (CLI) | payer MEDICARE, OTHER ==
--- NOTE | 2022-01-20 21:03 | XRAY Report ---
PROCEDURE: Chest 2 View X-Ray INDICATIONS: Dyspnea on exertion TECHNIQUE: 2 view(s) of the chest. COMPARISON: Chest radiograph 12/08/2021 FINDINGS: Surgical changes and devices: Tip of the left chest port catheter projects over the mid-lower SVC. Lungs and pleura: Small right pleural effusion, not significantly changed. Similar minimal right bas ilar opacity. No pneumothorax. Mediastinum: Cardiac silhouette is enlarged as before. No definite pulmonary vascular congestion. Bones and chest wall: No suspicious bony abnormalities. Soft tissues appear unremarkable. IMPRESSION: No significant interval change. Similar findings of small right pleural effusion with right basilar p ulmonary opacity likely representing atelectasis with aspiration or pneumonia difficult to exclude. A s before, the cardiac silhouette is enlarged without definite evidence of pulmonary vascular congesti on. Reviewed by: Arthur Beard MD on 01/20/2022 9:02 PM PDT Approved by: Arthur Beard MD on 01/20/2022 9:02 PM PDT Station ID: [id number]
== END 2022-01-20 13:50 | disposition home or self-care (01) ==
LOC: DI.N 13:49
PROVIDERS: ATTEND Internal Medicine Cardiovascular Disease
DX: J90 Pleural effusion, not elsewhere classified (principal); I10 Essential (primary) hypertension; R06.09 Other forms of dyspnea
CPT/HCPCS: 36415; 80048; 83880

== ENCOUNTER 2022-02-24 12:16 | Outpatient (CLI) | payer MEDICARE, OTHER ==
[2022-02-24 17:48] LABS: CALCIUM 9.8 mg/dL (8.5-10.3); CREATININE 0.9 mg/dL (0.4-1.0); POTASSIUM 4.7 mmol/L (3.5-5.0)
== END 2022-02-24 12:17 | disposition home or self-care (01) ==
LOC: LAB.N 12:16
PROVIDERS: ATTEND Internal Medicine Cardiovascular Disease
DX: I50.32 Chronic diastolic (congestive) heart failure (principal)
CPT/HCPCS: 36415; 80048

== ENCOUNTER 2022-10-08 15:31 | Outpatient (CLI) | payer MEDICARE, OTHER | END 2022-10-08 23:59 | disposition hospice, home (50) | LOC: EMS 15:31 | PROVIDERS: ATTEND Family Medicine | DX: Z51.5 Encounter for palliative care (principal) | CPT/HCPCS: A0425; A0428 ==

== ENCOUNTER 2022-10-10 07:10 | Outpatient (CLI) | payer MEDICARE, OTHER | END 2022-10-10 07:11 | disposition EMS.NT | LOC: EMS 07:10 | DX: R53.1 Weakness (principal) ==